=== PATIENT | female | born 1945 | race Caucasian/White ===

== ENCOUNTER → 2019-11-26 09:09 | Outpatient (BNVA) | payer MEDICARE, SELFPAY | PROVIDERS: Visit Provider Internal Medicine | DX: I48.20 Chronic atrial fibrillation, unspecified (principal); Z51.81 Encounter for therapeutic drug level monitoring; Z79.01 Long term (current) use of anticoagulants | CPT/HCPCS: 85610; 99211 ==

== ENCOUNTER → 2020-01-05 09:46 | Outpatient (BNVA) | payer MEDICARE, SELFPAY | PROVIDERS: Visit Provider Internal Medicine | DX: I48.20 Chronic atrial fibrillation, unspecified (principal); Z51.81 Encounter for therapeutic drug level monitoring; Z79.01 Long term (current) use of anticoagulants | CPT/HCPCS: 85610; 99211 ==

== ENCOUNTER → 2020-02-16 09:53 | Outpatient (BNVA) | payer MEDICARE, SELFPAY | PROVIDERS: Visit Provider Internal Medicine | DX: I48.20 Chronic atrial fibrillation, unspecified (principal); Z51.81 Encounter for therapeutic drug level monitoring; Z79.01 Long term (current) use of anticoagulants | CPT/HCPCS: 85610; 99211 ==

== ENCOUNTER → 2020-03-01 10:01 | Outpatient (BNVA) | payer MEDICARE, SELFPAY | PROVIDERS: Visit Provider Internal Medicine | DX: I48.20 Chronic atrial fibrillation, unspecified (principal); Z51.81 Encounter for therapeutic drug level monitoring; Z79.01 Long term (current) use of anticoagulants | CPT/HCPCS: 85610; 99211 ==

== ENCOUNTER → 2020-03-08 09:56 | Outpatient (BNVA) | payer MEDICARE, SELFPAY | PROVIDERS: Visit Provider Internal Medicine | DX: I48.20 Chronic atrial fibrillation, unspecified (principal); Z51.81 Encounter for therapeutic drug level monitoring; Z79.01 Long term (current) use of anticoagulants | CPT/HCPCS: 85610; 99211 ==

== ENCOUNTER → 2020-04-07 10:10 | Outpatient (BNVA) | payer MEDICARE, SELFPAY | PROVIDERS: PCP Internal Medicine; Visit Provider Internal Medicine | DX: I48.20 Chronic atrial fibrillation, unspecified (principal); Z51.81 Encounter for therapeutic drug level monitoring; Z79.01 Long term (current) use of anticoagulants | CPT/HCPCS: 85610; 99211 ==

== ENCOUNTER → 2020-05-05 10:11 | Outpatient (BNVA) | payer MEDICARE, SELFPAY | PROVIDERS: PCP Internal Medicine; Visit Provider Internal Medicine | DX: I48.20 Chronic atrial fibrillation, unspecified (principal); Z51.81 Encounter for therapeutic drug level monitoring; Z79.01 Long term (current) use of anticoagulants | CPT/HCPCS: 85610; 99211 ==

== ENCOUNTER → 2020-05-17 08:49 | Outpatient (BNVA) | payer MEDICARE, SELFPAY | PROVIDERS: PCP Internal Medicine; Visit Provider Internal Medicine | DX: I48.20 Chronic atrial fibrillation, unspecified (principal); Z79.01 Long term (current) use of anticoagulants; Z51.81 Encounter for therapeutic drug level monitoring | CPT/HCPCS: 85610; 99211 ==

== ENCOUNTER → 2020-06-14 09:00 | Outpatient (BNVA) | payer MEDICARE, SELFPAY | PROVIDERS: PCP Internal Medicine; Visit Provider Internal Medicine | DX: I48.20 Chronic atrial fibrillation, unspecified (principal); Z51.81 Encounter for therapeutic drug level monitoring; Z79.01 Long term (current) use of anticoagulants | CPT/HCPCS: 85610; 99211 ==

== ENCOUNTER 2020-07-02 08:30 | Outpatient (REF) | payer MEDICARE, SELFPAY ==
[2020-07-02 10:06] LABS: MANUAL DIFF FLAG NO
[2020-07-02 10:15] LABS: Basophils Percent Auto 0.4 % (0-2); Eosinophils Absolute Auto 0.1 X10*3/uL (0.0-0.4); Eosinophils Percent Auto 1.1 % (0-4); Hematocrit 41.6 % (37-47); Hemoglobin 13.5 g/dl (12.0-16.0); Imm Gran Abs Auto 0.02 X10*3/uL (0.00-0.03); Imm Gran Pct Auto 0.3 % (0.0-0.4); Lymphocytes Absolute Auto 1.6 X10*3/uL (1.2-4.9); Lymphocytes Percent Auto 23.3 % (20-40); Mean Corpuscular HGB Conc 32.5 g/dl (31.0-35.0); Mean Corpuscular Hemoglobin 31.8 pg (27.0-33.0); Mean Corpuscular Volume 98.1 fL (80-98); Mean Platelet Volume 11.2 fL (9.4-12.3); Monocytes Absolute Auto 0.5 X10*3/uL (0.1-1.2); Monocytes Percent Auto 7.6 % (2-11); Neutrophils Absolute Auto 4.7 X10*3/uL (2.0-8.3); Neutrophils Percent Auto 67.3 % (45-73); Platelet Count 266 X10*3/uL (160-400); Red Blood Count 4.24 X10*6/uL (4.20-5.50); Red Cell Distribution Width 12.3 % (11.0-16.0)
[2020-07-02 10:53] LABS: B Type Natriuretic Peptide 260 pg/mL (<100)
[2020-07-02 11:03] LABS: Alanine Aminotransferase 22 U/L (0-31); Albumin Level 4.3 g/dL (3.5-5.0); Alkaline Phosphatase 85 U/L (39-117); Anion Gap 11 (12-20); Aspartate Amino Transferase 23 U/L (5-31); Bilirubin Total 0.5 mg/dL (0.0-1.0); Blood Urea Nitrogen 33 mg/dL (9-16); Calcium 9.8 mg/dL (8.4-10.2); Carbon Dioxide 29 mmol/L (22-29); Chloride 107 mmol/L (96-108); Cholesterol 158 mg/dL; Estimated Glomerular Filt Rate > 60; Glucose Random 86 mg/dL (60-115); HDL Cholesterol 64 mg/dL; LDL Cholesterol Calculated 82 mg/dl; Potassium 4.8 mmol/L (3.3-5.1); Sodium 142 mmol/L (135-145); Total Protein 6.7 g/dL (6.5-8.0); Triglycerides 63 mg/dL
[2020-07-02 11:11] LABS: Free T4 (Free Thyroxine) 0.96 ng/dL (0.71-1.85); Thyroid Stimulating Hormone 1.91 uIU/mL (0.32-4.0)
[2020-07-02 11:29] LABS: Vitamin B12 374 pg/mL (200-900)
== END 2020-07-02 08:31 | disposition home or self-care (01) ==
LOC: HO.LAB 08:30
PROVIDERS: Absent Provider Internal Medicine; PCP Internal Medicine; Visit Provider Internal Medicine
DX: I48.20 Chronic atrial fibrillation, unspecified (principal); E78.00 Pure hypercholesterolemia, unspecified; Z51.81 Encounter for therapeutic drug level monitoring; Z79.01 Long term (current) use of anticoagulants
CPT/HCPCS: 36415; 80053; 80061; 82306; 82607; 82746; 83880; 84439; 84443; 85025; 85610; 99211

== ENCOUNTER → 2020-07-06 12:50 | Outpatient (BNVA) | payer MEDICARE, SELFPAY | PROVIDERS: PCP Internal Medicine; Referring Provider Internal Medicine; Visit Provider Internal Medicine Cardiovascular Disease | DX: I48.0 Paroxysmal atrial fibrillation (principal); I10 Essential (primary) hypertension; R79.89 Other specified abnormal findings of blood chemistry | CPT/HCPCS: 93005; 99202 ==

== ENCOUNTER → 2020-07-08 08:11 | Outpatient (REF) | payer MEDICARE, SELFPAY ==
--- NOTE | 2020-07-08 08:14 | CA_ITS ---
Transthoracic Echocardiogram Patient (Last, First, Middle): Sivan Luis, Gender: Female Date of : 1945 Age: 75 Procedure Date: 07/08/2020 Procedure Type: Transthoracic Echocardiogram Location: OP Height: 167.64 cm Weight: 71.67 kg BSA: 1.81 m2 Heart Rate: bpm BP: 118 / 58 mmHg Manager Merchandise: SARITHA/JOSEPH Referring MD: Sandeep Cid MD Symptoms: I48.0 - Paroxysmal atrial fibrillation Study Quality: Good ECG Rhythm: Sinus Conclusions: - The left ventricular systolic function is normal. The visually estimated ejection fraction is between 60-65%. - Evidence suggests grade II (moderate) diastolic dysfunction. - There is mild mitral valve regurgitation. - There is mild tricuspid valve regurgitation. Findings Left Ventricle Normal left ventricular cavity size. There is normal left ventricular wall thickness. The left ventricular systolic function is normal. The visually estimated ejection fraction is between 60-65%. There is no evidence of regional wall motion abnormalities. E/E prime ratio is between 8 and 15 consistent with indeterminate filling pressures. Evidence suggests grade II (moderate) diastolic dysfunction. Right Ventricle Normal right ventricular cavity size and systolic function. Atria The left atrium is mildly dilated. The right atrium is normal in size. Aortic Valve The aortic valve was not well visualized. There is no aortic valve stenosis. There is no aortic valve regurgitation. Mitral Valve The mitral valve appears normal. There is mild mitral valve regurgitation. There is no mitral valve stenosis. Pulmonic Valve The pulmonic valve was not well visualized. Tricuspid Valve Normal tricuspid valve structure. There is mild tricuspid valve regurgitation. The pulmonary artery systolic pressure is normal. Great Vessels The aortic annulus, sinuses of valsalva, and asc aorta are normal in size. Venous The inferior vena cava is normal in size and collapses greater than 50% with inspiration. Pericardium/Pleural There is no evidence of pericardial effusion. Prior Study Comparison No prior study available for comparison. Measurements 2D Linear Measurements IVSd: 0.93 0.6-0.9/0.6-1.0 cm LVIDd: 4.60 3.9-5.3/4.2-5.9 cm LVIDd Index: 2.54 2.4-3.2/2.2-3.1 cm/m2 LVIDs: 2.96 2.0-3.6 cm LVPWd: 0.96 0.7-1.1 cm Ao Root: 3.10 2.1-3.5 cm LA Diam: 3.70 2.7-3.8/3.0-4.0 cm LAIDs Index: 2.04 1.5-2.3 cm/m2 LV Mass: 182.93 67-162/88-224 g LV Mass Index: 101.07 43-95/49-115 g/m2 LVOT Diam: 2.00 3.0+(-)1.3 cm 2D Systolic Function EF 4C: 57.40 >55% EF 2C: 61.80 >55% EF BiP: 56.00 >55% Mitral Valve MV Pk E: 1.11 MV PK A: 0.59 MV Decel Time: 272.00 E/A: 1.90 E'Medial: 7.94 E/E' Med: 14.00 PHT: 80.00 MVA PHT: 2.75 Decel [place]: 4.09 Aortic Valve AoV Pk Stanislav: 1.26 AoV Mn Stanislav: 0.94 AoV VTI: 0.28 AoV Pk Grad: 6.00 Aov Mn Grad: 4.00 CORBY Cont.VTI: 2.65 LVOT LVOT Pk Stanislav: 0.87 LVOT Mn Stanislav: 0.59 LVOT VTI: 0.23 LVOT Pk Grad: 3.00 LVOT Mn Grad: 2.00 LVOT Diam: 2.00 LVOT Area: 3.14 Diastolic Function MV Pk E: 1.11 MV Pk A: 0.59 E/A: 1.90 E'Medial: 7.94 E/E' Med: 14.00 Tricuspid Valve TR Pk Stanislav: 2.61 TR Pk Grad: 27.00 RA Press: 3.00 RVSP: 30.00 Great Vessels Aorta Ao Root-2D: 3.10 2.0-3.7 cm Ao Asc: 3.20 2.1-3.4 cm Ao Arch: 2.90 Updated in Other Vendor System with Status of Final Zachary Garcia MD electronically signed on 07/09/2020 3:54:11 PM with status of Final
== END ==
LOC: HO.CARD 08:11
PROVIDERS: Visit Provider Internal Medicine Cardiovascular Disease
DX: I48.0 Paroxysmal atrial fibrillation (principal)
CPT/HCPCS: 93306

== ENCOUNTER → 2020-07-09 08:26 | Outpatient (BNVA) | payer MEDICARE, SELFPAY | PROVIDERS: PCP Internal Medicine; Visit Provider Internal Medicine | DX: I48.20 Chronic atrial fibrillation, unspecified (principal); Z51.81 Encounter for therapeutic drug level monitoring; Z79.01 Long term (current) use of anticoagulants | CPT/HCPCS: 85610; 99211 ==

== ENCOUNTER → 2020-07-22 10:57 | Outpatient (REF) | payer MEDICARE, SELFPAY ==
--- NOTE | 2020-07-22 10:24 | HM_ITS ---
TEST PERFORMED: Cardiac event monitoring. ENROLLMENT: 07/22/2020-08/03/2020-12 days. INDICATION: Atrioventricular block. FINDINGS: Study shows baseline rhythm and sinus bradycardia at 54/min. Overall heart rates ranged from 54 to 165 beats per minute. The patient also had evidence of atrial flutter versus fibrillation at different times ranging in rate from 105 to 165 beats per minute. During these time, there was patient's symptom of palpitations, racing, fluttering. CONCLUSION: Study shows sinus bradycardia as well as atrial flutter/fibrillation at different times. Zachary Garcia MD HS/MODL / [id number]
--- NOTE | 2020-07-22 10:59 | CA_ITS ---
Acquisition Time: 2020-07-22 11:13:12 Total Exercise Time: 00:06:43 Test Indications: Abnormal ECG Medications: ASA FLECAINIDE ATORVASTATIN METOPROLOL WARFARIN EZITIMIBE Protocol: DON Max HR: 108 BPM 73% of Pred: 147 BPM Max BP: 154/078 mmHG Max Work Load: 8.1 METS Exercise stress test with exercise 6 min 43 sec of Don protocol, without anginal symptoms, with normotensive response to exercise with 2:1 heart block at peak exercise lasting 30 seconds then resuming SR, with nondiagnostic EKGs for ischemia due to suboptimal heart rate. Echo images obtained at rest and immediately post peak exercise. Definity contrast used. Test and EKG tracings reviewed [facility] Dr Cid. Referred By: Sandeep Cid Overread By: AMADOU JAMIL
== END ==
LOC: HO.CARD 10:57
PROVIDERS: Visit Provider Internal Medicine Cardiovascular Disease
DX: I48.0 Paroxysmal atrial fibrillation (principal); Z79.82 Long term (current) use of aspirin; Z79.01 Long term (current) use of anticoagulants; Z79.899 Other long term (current) drug therapy
CPT/HCPCS: 93270; 93350; Q9957

== ENCOUNTER → 2020-07-26 09:03 | Outpatient (BNVA) | payer MEDICARE, SELFPAY | PROVIDERS: PCP Internal Medicine; Visit Provider Internal Medicine Cardiovascular Disease | DX: I44.1 Atrioventricular block, second degree (principal); I48.0 Paroxysmal atrial fibrillation; R79.89 Other specified abnormal findings of blood chemistry | CPT/HCPCS: 93005; 99212 ==

== ENCOUNTER 2020-07-27 11:15 | Day surgery (SDC) | payer MEDICARE, SELFPAY ==
[2020-07-27] VITALS (8 sets, daily range): BP systolic 113–170; BP diastolic 56–80; PULSE 60–75; RESP 14–18; TEMP 36.1–37.2; O2SAT 95–99; BMI 25.6; BMI 25.0
--- NOTE | ~2020-07-27 | FL_ITS ---
EXAMINATION: XR FLUOROSCOPY WITH IMAGES CLINICAL INFORMATION: Dual-chamber pacemaker. COMPARISON: None. TECHNIQUE: Fluoroscopy performed by Dr. Susan García. Fluoroscopy time: 9.6 minus minutes DAP: 1.65 mGycm2 Images: 2 FINDINGS: There are pacemaker electrodes visualized in right ventricle and solitary pacer in the right atrium. FL/FL guidance in OR IMPRESSION: Fluoroscopy was provided to Dr. García for pacemaker insertion.
--- NOTE | ~2020-07-27 | XR_ITS ---
EXAMINATION: XR CHEST CLINICAL INFORMATION: New permanent pacemaker COMPARISON: None TECHNIQUE: Frontal view of the chest was obtained. FINDINGS: A left chest wall pacemaker is present with one lead in the right atrium and the other relatively high in the right ventricle. The heart and pulmonary vessels appear normal. No infiltrates, effusions, pneumothorax or lung masses are seen. XR/XR chest 1V IMPRESSION: New pacemaker described above. No acute intrathoracic disease.
--- NOTE | ~2020-07-27 | XR_ITS ---
EXAMINATION: XR CHEST CLINICAL INFORMATION: Follow-up pulmonary pacemaker COMPARISON: None TECHNIQUE: Frontal view of the chest was obtained. FINDINGS: The lungs are well-expanded and clear. The heart size and pulmonary vascularity is normal. There are pacer electrodes in right atrium and right ventricle with no gross bony abnormality seen. XR/XR chest 1V IMPRESSION: Unremarkable chest exam. No change from 07/27/2020.
--- NOTE | 2020-07-27 11:53 | HO.ANESPROP2 ---
[facility] Active Problems Active Problems: All Active Problems (Updated 07/22/20 @ 12:44 by Aixa Stovall, HAIR SPINNING MACHINE OPERATOR-C) Second degree atrioventricular block (Acute) Elevated brain natriuretic peptide (BNP) level (Acute) Paroxysmal atrial fibrillation (Acute) Impacted cerumen of both ears (Acute) Hypercholesterolemia (Acute) Hypertension (Acute) Current use of anticoagulant therapy (Acute) Past Medical History Medical History Hypercholesterolemia Hypertension Paroxysmal atrial fibrillation Surgical History Surgical History Eye globe prosthesis Social History Social History Alcohol intake: never Patient Tobacco Use Status: Never used Tobacco Use of substances other than those prescribed or required for medical reasons: No Are you DNR?: No Advance Directives: No Advance Directives Information Provided: No Advance Directives on File: No Meds Allergies Allergy/AdvReac Type Severity Reaction Status Date / Time No Known Allergies Allergy Verified 07/09/20 08:31 Exam Exam Date and Time: July 27, 2020 1153 Height,Weight and Vital Signs: Height 5 ft 6 in Weight 70.307 kg Airway Mallampati Class: II TM Dist: >3cm Neck ROM: Full Assessment and Plan Assessment Anesthesia Assessment: Anesthesia Plan Discussed and Chart Reviewed Final Anesthetic Review NPO: Yes ASA Class: III Final Preanesthetic Review: No Changes in Pt Med Stat, Meds/Allgs Chart Reviewed, Consent Obtained/Reviewed and Anes Risks/Benef Reviewed Patient Risk: Intermediate Procedure Risk: Low Assessment/Block/Sedation in SS: Assess/Block/Sedation- Anesthetic Plan Anesthetic Plan: MAC: Disposition: Standard PACU
--- NOTE | 2020-07-27 12:37 | P.HPCC_ITS ---
History of Present Illness Date of Service: 07/27/20 Chief Complaint: Multiple episodes near-syncope 75-year-old female with many weeks of exertional fatigability shortness of breath and multiple episodes even when sitting and lying of near syncope Longstanding history of paroxysmal atrial fibrillation on flecainide and metoprolol which was subsequently stopped and while on the treadmill manifested high-grade 2-1 av block but heart rate 30 and with significant symptomatic bradycardia No evidence of ischemia and echo anatomy normal in including bowel structures Review of Systems Review of Systems: Yes all other systems are reviewed and are negative [facility] Past Medical History Medical History Hypercholesterolemia Hypertension Paroxysmal atrial fibrillation Surgical History Surgical History Eye globe prosthesis Social History Social History Alcohol intake: never Patient Tobacco Use Status: Never used Tobacco Use of substances other than those prescribed or required for medical reasons: No Are you DNR?: No Advance Directives: No Advance Directives Information Provided: No Advance Directives on File: No Meds Allergies Allergy/AdvReac Type Severity Reaction Status Date / Time No Known Allergies Allergy Verified 07/09/20 08:31 Active Medications: Current Medications Generic Name Dose Route Start Last Admin Trade Name Freq PRN Reason Stop Dose Admin Acetaminophen 650 mg 07/27/20 12:27 Acetaminophen 325 Mg Tablet PO ONCE PRN Pain, Mild (Pain Scale 1-3) Lactated Ringer's 500 mls @ 20 mls/hr 07/27/20 12:45 Lr IVCONT .Q24H SWAPNA Ondansetron HCl 4 mg 07/27/20 12:27 Ondansetron Hcl 4 Mg/2 Ml Vial IVPUSH ONCE PRN Nausea and Vomiting Oxycodone HCl 5 mg 07/27/20 12:27 Oxycodone Hcl Immed Release 5 Mg Tablet PO ONCE PRN Pain, Severe (Pain Scale 7-10) Physical Exam Vital Signs: Vital Signs: Last Vital Signs Temp 98.9 F 07/27/20 11:51 Pulse 65 07/27/20 11:51 Resp 16 07/27/20 11:51 BP 170/60 H 07/27/20 11:51 Pulse Ox 98 07/27/20 11:51 Body Mass Index 25.0 Awake alert oriented and nonfocal neurologic Kathrin No neck vein distension and good bilateral carotid upstrokes and no murmurs no gallops Chest clear no adventitious sounds Abdomen benign no again a megaly no bruits good bowel sounds Peripherally no edema no acrocyanosis no livedo good peripheral pulses EKG with minor diffuse nonspecific ST-T changes Assessment and Plan (1) Second degree atrioventricular block: Status: Acute (2) Elevated brain natriuretic peptide (BNP) level: Status: Acute (3) Paroxysmal atrial fibrillation: Status: Acute (4) Hypercholesterolemia: Status: Acute (5) Hypertension: Qualifiers: Hypertension type: essential hypertension Qualified Code(s): I10 - Essential (primary) hypertension Status: Acute (6) Current use of anticoagulant therapy: Status: Acute (7) Symptomatic bradycardia: Status: Acute Plan is to proceed with permanent dual-chamber pacing currently while in normal sinus rhythm and subsequent to that anti rhythmic medicine can be restarted and anticoagulation can also be restored
[2020-07-27] MEDS: Lactated Ringers 500 ML 20 ML IVCONT (12:40)
--- NOTE | 2020-07-27 13:50 | PC.NURSE ---
Patient arrived to [facility] with right eye prosthesis. Per MD Dickerson, okay to keep in during procedure.
--- NOTE | 2020-07-27 13:51 | PC.NURSE ---
Labs ordered in preop by Dr. García. Per him, okay to draw labs after procedure in PACU. PACU notified of this.
--- NOTE | 2020-07-27 16:16 | P.OP_ITS ---
Operative Note Operative Note Date of Service: 07/27/20 Narrative: Procedure was insertion of dual-chamber permanent pacemaker from [employer] Indication was symptomatic bradycardia with multiple near-syncope due to high- grade second-degree AV block and sinus node dysfunction and paroxysmal atrial fibrillation After sterile preparation and draping and under fluoroscopic guidance we 1st did a subclavian venogram with 15 cc of Vis[place] highlighting subclavian venous system without complication and then made careful incision and dissection securing all bleeders down to the level of the prepectoral fascia and partially creating the pocket along that plane and then gained separate entry under fluoroscopic guidance x2 into the subclavian venous system passing retrograde with Seldinger technique 2 J-tip guidewires to the right atrium and then 2 6 Frisian introducers and then 1st passing an active fixation right ventricular lead to the midportion of the right ventricular septum and this was corroborated in the CZECH view on fluoroscopy with excellent injury current final sensing was 3.6 mV and with capture a 0.6 volts at 0.5 milliseconds with resistant 636 Ohms and at 10 volts no diaphragmatic capture so that lead was sewn in tethered to the pectoral muscle in the floor of the pocket I then passed an active fixation right atrial lead to the right atrial appendage with the screw was deployed excellent injury current sensing 2.3 mV with resistance 423 Ohms capture at 0.3 volts and at 10 volts no diaphragmatic capture so that lead was sewn in tethered to the pectoral muscle in the floor of the pocket I then carefully dissected along the plane of the prepectoral fascia completing the pocket placed both leads in the generator screwed in place both well tethered with no change in impedance and lead and generator placed in the pocket and the wound was closed in 3 layers all with dissolvable suture covered with sterile dressing and the patient removed from the OR table awake and intact currently in normal sinus rhythm and excellent sensing of both atrium and ventricle No complications and awaiting final portable chest x-ray
[2020-07-27 16:18] LABS: MANUAL DIFF FLAG NO
[2020-07-27 16:33] LABS: Basophils Percent Auto 0.4 % (0-2); Eosinophils Absolute Auto 0.1 X10*3/uL (0.0-0.4); Eosinophils Percent Auto 1.1 % (0-4); Hematocrit 35.9 % (37-47); Hemoglobin 11.6 g/dl (12.0-16.0); Imm Gran Abs Auto 0.02 X10*3/uL (0.00-0.03); Imm Gran Pct Auto 0.4 % (0.0-0.4); Lymphocytes Absolute Auto 1.5 X10*3/uL (1.2-4.9); Lymphocytes Percent Auto 28.7 % (20-40); Mean Corpuscular HGB Conc 32.3 g/dl (31.0-35.0); Mean Corpuscular Hemoglobin 31.6 pg (27.0-33.0); Mean Corpuscular Volume 97.8 fL (80-98); Mean Platelet Volume 11.2 fL (9.4-12.3); Monocytes Absolute Auto 0.4 X10*3/uL (0.1-1.2); Monocytes Percent Auto 7.2 % (2-11); Neutrophils Absolute Auto 3.3 X10*3/uL (2.0-8.3); Neutrophils Percent Auto 62.2 % (45-73); Platelet Count 203 X10*3/uL (160-400); Red Blood Count 3.67 X10*6/uL (4.20-5.50); Red Cell Distribution Width 11.9 % (11.0-16.0); White Blood Count 5.3 X10*3/uL (4.8-10.8)
[2020-07-27 16:40] LABS: INTERNATIONAL NORM RATIO 1.1 (0.9-1.1); Prothrombin Time 13.4 SEC (10.8-13.0)
[2020-07-27 16:43] LABS: Partial Thromboplastin Time 33.8 SEC (24.1-38.0)
[2020-07-27 16:50] LABS: Anion Gap 11 (12-20); Blood Urea Nitrogen 22 mg/dL (9-16); Calcium 9.4 mg/dL (8.4-10.2); Carbon Dioxide 28 mmol/L (22-29); Chloride 108 mmol/L (96-108); Creatinine Clr Calc Pharmacy 57.9; Estimated Glomerular Filt Rate > 60; Glucose Random 79 mg/dL (60-115); Potassium 4.4 mmol/L (3.3-5.1); Sodium 143 mmol/L (135-145)
[2020-07-27] MEDS: Acetaminophen 325 MG TABLET 650 MG PO (22:05)
[2020-07-28 03:50] VITALS: BP 134/66; PULSE 59; RESP 18; TEMP 36.2; O2SAT 97
[2020-07-28 07:37] VITALS: BP 154/72; PULSE 63; RESP 19; TEMP 36.8; O2SAT 94
[2020-07-28] MEDS: Apixaban 2.5 MG TABLET PO (07:45)
--- NOTE | 2020-07-28 08:47 | P.PNCC_ITS ---
Subjective Subjective Date of Service: 07/28/20 Interval History: Patient asymptomatic with stable rhythm overnight and waited a chest x-ray which showed again no evidence of pneumothorax no effusion and the lead placement on the septum of the right ventricle and in the right atrial appendage was absolutely stable and device interrogation shows similar impedance and capture and sensing thresholds compared to yesterday and therefore it appears that the patient is ready for discharge Critical Care Time (minutes): 25 Physical Exam Vital Signs: Vital Signs: Last Vital Signs Temp 98.2 F 07/28/20 07:37 Pulse 63 07/28/20 07:37 Resp 19 07/28/20 07:37 BP 154/72 H 07/28/20 07:37 Pulse Ox 94 07/28/20 07:37 Body Mass Index 25.6 Const: Other: Normal sinus rhythm with [place] QRS conduction and appropriate sensing by the device with no neck vein distension and good bilateral carotid upstrokes no rubs no bruits and chest is clear Objective Data Labs CBC & Chem 7: 07/27/20 16:09 07/27/20 16:09 Labs: Laboratory Results - last 24 hr 07/27/20 07/27/20 07/27/20 16:09 16:09 16:09 WBC 5.3 RBC 3.67 L Hgb 11.6 L Hct 35.9 L MCV 97.8 MCH 31.6 MCHC 32.3 RDW 11.9 Plt Count 203 MPV 11.2 Immature Gran % (Auto) 0.4 Neut % (Auto) 62.2 Lymph % (Auto) 28.7 [place] % (Auto) 7.2 Eos % (Auto) 1.1 Baso % (Auto) 0.4 Lymph # (Auto) 1.5 [place] # (Auto) 0.4 Eos # (Auto) 0.1 Baso # (Auto) 0.0 Abs Immat Gran (auto) 0.02 Absolute Neuts (auto) 3.3 Absolute Nucleated RBC 0.000 Nucleated RBC % (auto) 0.0 PT 13.4 H INR 1.1 APTT 33.8 Sodium 143 Potassium 4.4 Chloride 108 Carbon Dioxide 28 Anion Gap 11 L BUN 22 H Creatinine 0.81 Estim Creat Clear Calc 57.9 Estimated GFR > 60 Random Glucose 79 Calcium 9.4 Progress Note: A&P Assessment and plan (1) Symptomatic bradycardia: Status: Acute (2) Second degree atrioventricular block: Status: Acute (3) Elevated brain natriuretic peptide (BNP) level: Status: Acute (4) Paroxysmal atrial fibrillation: Status: Acute (5) Impacted cerumen of both ears: Status: Acute (6) Hypercholesterolemia: Status: Acute (7) Hypertension: Status: Acute (8) Current use of anticoagulant therapy: Status: Acute Assessment and Plan: All told excellent dual-chamber pacer function and ready for discharge and she can resume her normal meds as of this evening including the apixaban
--- NOTE | 2020-07-28 09:01 | MHC.CM.PN ---
pt dcd home no servceis pt is independent family will transport home
--- NOTE | 2020-07-28 11:16 | HO.POSTANES ---
Post Anesthesia Evaluation Post Anesthesia Evaluation Vital Signs: Vital Signs Temp Pulse Resp BP Pulse Ox 07/28/20 07:37 98.2 F 63 19 154/72 H 94 07/28/20 03:50 97.2 F 59 18 134/66 97 07/27/20 23:42 98.0 F 60 18 151/72 H 97 Anesthesia: Monitored Mental Status: Awake Pain Control: Satisfactory Nausea/Vomiting: None Hydration: Adequate Anesthesia-Related Issues: No Anes. Related Issues
--- NOTE | 2020-07-28 11:17 | PM.DS ---
DS: Providers Provider Date of Service: 07/28/20 Primary care physician: Sandeep Cid MD Consults: 07/27/20 19:32 Consult to Hospitalist Stat Consulting Provider: Hospitalist Reason For Exam: s/p PPM by Dr García DS: Diagnosis Discharge Diagnosis (1) Symptomatic bradycardia: Status: Acute (2) Second degree atrioventricular block: Status: Acute (3) Elevated brain natriuretic peptide (BNP) level: Status: Acute (4) Paroxysmal atrial fibrillation: Status: Acute (5) Impacted cerumen of both ears: Status: Acute (6) Hypercholesterolemia: Status: Acute (7) Hypertension: Status: Acute (8) Current use of anticoagulant therapy: Status: Acute DS: Medications Discharge Medications Home Medications: Previous Rx's Medication Instructions Recorded ezetimibe 10 mg tablet 10 mg PO DAILY #90 tab 04/23/20 atorvastatin 80 mg tablet 80 mg PO DAILY #90 tab 05/12/20 apixaban 5 mg tablet 5 mg PO BID 90 Days #180 tab 07/06/20 DS: Summary Hospital Course Hospital Course: History of presenting illness. Chief Complaint: Multiple episodes near-syncope 75-year-old female with many weeks of exertional fatigability shortness of breath and multiple episodes even when sitting and lying of near syncope Longstanding history of paroxysmal atrial fibrillation on flecainide and metoprolol which was subsequently stopped and while on the treadmill manifested high-grade 2-1 av block but heart rate 30 and with significant symptomatic bradycardia No evidence of ischemia and echo anatomy normal in including bowel structures pmhx Hypercholesterolemia Hypertension Paroxysmal atrial fibrillation Hospital course 75-year-old female patient with past medical history of paroxysmal atrial fibrillation on anticoagulation presented to [place] [facility] with multiple episodes of near syncope, exertional fatigability and was found to have high-grade 2-1 AV block patient underwent dual-chamber pacemaker placement by Dr. wang, currently she is in normal sinus rhythm, chest x-ray showed no evidence of pneumothorax, no effusion and the lead placement on the septum of the right ventricle in the and in the right atrial appendage is absolutely stable, pacemaker has been interrogated and functioning fine, patient evaluated by Dr. Wang this a.m. he recommended to discharge patient home on baseline medication, and Eliquis can be resume from tonight, recommend to have outpatient follow-up with Dr. Bledsoe in 1 week. Time Spent with Patient Time attestation: Total time spent providing and/or coordinating discharge services: Discharge coordination time: Greater than 30 minutes Quality: Stroke Does the patient have a stroke diagnosis?: No Physical Exam Vital Signs: Vital Signs: Last Vital Signs Temp 98.2 F 07/28/20 07:37 Pulse 63 07/28/20 07:37 Resp 19 07/28/20 07:37 BP 154/72 H 07/28/20 07:37 Pulse Ox 94 07/28/20 07:37 Body Mass Index 25.6 General awake alert no distress Neck no JVD Lungs clear to auscultation CVS regular rate rhythm GI soft, nontender, bowel sounds are audible Extremities no edema DS: Data Data Completed and Pending Labs on day of discharge: Laboratory Results - last 24 hr 07/27/20 07/27/20 07/27/20 16:09 16:09 16:09 WBC 5.3 RBC 3.67 L Hgb 11.6 L Hct 35.9 L MCV 97.8 MCH 31.6 MCHC 32.3 RDW 11.9 Plt Count 203 MPV 11.2 Immature Gran % (Auto) 0.4 Neut % (Auto) 62.2 Lymph % (Auto) 28.7 [place] % (Auto) 7.2 Eos % (Auto) 1.1 Baso % (Auto) 0.4 Lymph # (Auto) 1.5 [place] # (Auto) 0.4 Eos # (Auto) 0.1 Baso # (Auto) 0.0 Abs Immat Gran (auto) 0.02 Absolute Neuts (auto) 3.3 Absolute Nucleated RBC 0.000 Nucleated RBC % (auto) 0.0 PT 13.4 H INR 1.1 APTT 33.8 Sodium 143 Potassium 4.4 Chloride 108 Carbon Dioxide 28 Anion Gap 11 L BUN 22 H Creatinine 0.81 Estim Creat Clear Calc 57.9 Estimated GFR > 60 Random Glucose 79 Calcium 9.4 Discharge Plan Discharge Patient Disposition: Home, Self-Care Referrals: Sandeep Cid MD [Primary Care Provider] - 1 Week Discharge Medications: No Action ezetimibe 10 mg tablet 10 mg PO DAILY Qty: 90 RF: 1 Eliquis 5 mg tablet 5 mg PO BID 90 Days Qty: 180 RF: 1 atorvastatin 80 mg tablet 80 mg PO DAILY Qty: 90 RF: 3 Discharge Orders: Discharge Order (Routine); Ordered 07/28/20 Ordered By: Christiano Dominguez Discharge Date/Time: 07/28/20 10:06
== END 2020-07-28 10:06 | disposition home or self-care (01) ==
LOC: HO.SSS 16:20 → HO.IMC 16:21
PROVIDERS: PCP Internal Medicine Cardiovascular Disease; Visit Provider Internal Medicine Cardiovascular Disease
PROC: (CPT 33208; principal; 2020-07-27 13:00)
DX: I44.1 Atrioventricular block, second degree (principal); I48.0 Paroxysmal atrial fibrillation; R55 Syncope and collapse; R00.1 Bradycardia, unspecified; E78.00 Pure hypercholesterolemia, unspecified; I10 Essential (primary) hypertension; Z79.01 Long term (current) use of anticoagulants; Z79.899 Other long term (current) drug therapy
CPT/HCPCS: 33208; 36415; 71045; 80048; 85025; 85610; 85730; C1785; C1892; C1898; J0690; J2250; J3010; Q9967

== ENCOUNTER → 2020-08-05 09:59 | Outpatient (BNVA) | payer MEDICARE, SELFPAY | PROVIDERS: PCP Internal Medicine; Referring Provider Internal Medicine; Visit Provider Internal Medicine Cardiovascular Disease | DX: I48.91 Unspecified atrial fibrillation (principal) | CPT/HCPCS: 93005 ==

== ENCOUNTER → 2020-08-10 13:51 | Outpatient (BNVA) | payer MEDICARE, SELFPAY | PROVIDERS: PCP Internal Medicine; Visit Provider Nurse Practitioner Family | DX: Z51.89 Encounter for other specified aftercare (principal); I48.0 Paroxysmal atrial fibrillation; I44.1 Atrioventricular block, second degree; R79.89 Other specified abnormal findings of blood chemistry; Z95.0 Presence of cardiac pacemaker | CPT/HCPCS: 99212 ==

== ENCOUNTER → 2020-08-23 09:21 | Outpatient (REF) | payer MEDICARE, SELFPAY ==
--- NOTE | ~2020-08-23 | NM_ITS ---
Myocardial perfusion study Indication: AV block to evaluate for myocardial ischemia Technique: The patient was brought in for a Lexiscan perfusion study on 08/23/2020. Patient performed low-level exercise and was injected 0.4 mg of Lexiscan intravenously. Within a minute of injection, 25 mCi of sestamibi was given intravenously. Images were obtained using the SPECT gamma camera interlaced with the gating device. Images were obtained in supine position. Resting perfusion study was performed on 08/24/2020. Patient was administered 25 mCi of sestamibi intravenously at rest. Images were then obtained in supine position. Images obtained with and without CT attenuation. Total DLP 128 mGy-cm. Images were processed with the software and compared side to side in short axis, horizontal long axis and vertical long axis views. Findings: The stress perfusion study showed nonattenuated images show moderately reduced uptake in the distal lateral, apical wall of the LV myocardium. Remainder of the LV myocardium is normally perfused. Attenuation corrected images show normal uptake of radiotracer in all segments of LV myocardium.. The gated study shows normal LV systolic function with calculated LVEF of 70%. LV cavity is normal in size. The gated study shows normal systolic wall thickening and contraction of segments. Resting study shows no change in perfusion pattern compared to stress perfusion study. Gating at rest reveals normal systolic wall motion with ejection fraction at 65%. The findings are consistent with no clear reversible defect suggestive of ischemia. Likely normal myocardial perfusion. NM/NM joana perf SPECT rest & str Impression: 1. Myocardial perfusion imaging study shows likely normal myocardial perfusion 2. Gated LVEF is 70% 3. Transient ischemic dilatation not present EKG is nondiagnostic for ischemia
--- NOTE | 2020-08-23 09:23 | CA_ITS ---
Acquisition Time: 2020-08-23 09:35:45 Total Exercise Time: 00:02:00 Test Indications: POST PACEMAKER Medications: SEE CHART Protocol: LEXISCAN Max HR: 088 BPM 59% of Pred: 147 BPM Max BP: 126/072 mmHG Max Work Load: 1.0 METS Pharmacological stress test using Lexiscan while sitting. EKG with paced rhythm, isolated PVC's. Non-diagnostic for ischemia. Nuclear images to follow. Normotensive response to test. Test reviewed with Dr. Cid. Referred By: Aixa Stovall Overread By: Jennifer Art NP
== END ==
LOC: HO.CARD 09:21
PROVIDERS: Visit Provider Nurse Practitioner Family
DX: I44.1 Atrioventricular block, second degree (principal); I48.0 Paroxysmal atrial fibrillation; R79.89 Other specified abnormal findings of blood chemistry
CPT/HCPCS: 78452; 93017; A9500; J0280; J2785

== ENCOUNTER → 2020-09-06 08:54 | Outpatient (BNVA) | payer MEDICARE, SELFPAY | PROVIDERS: PCP Internal Medicine; Referring Provider Internal Medicine; Visit Provider Internal Medicine Cardiovascular Disease | DX: I48.0 Paroxysmal atrial fibrillation (principal); Z95.0 Presence of cardiac pacemaker; Z79.899 Other long term (current) drug therapy | CPT/HCPCS: 93005; 99212 ==

== ENCOUNTER 2020-11-08 11:48 | Outpatient (REF) | payer MEDICARE, SELFPAY ==
[2020-11-08 12:44] LABS: MANUAL DIFF FLAG NO
[2020-11-08 12:57] LABS: Basophils Percent Auto 0.6 % (0-2); Eosinophils Absolute Auto 0.1 X10*3/uL (0.0-0.4); Eosinophils Percent Auto 1.1 % (0-4); Hematocrit 39.5 % (37-47); Hemoglobin 12.9 g/dl (12.0-16.0); Imm Gran Abs Auto 0.03 X10*3/uL (0.00-0.03); Imm Gran Pct Auto 0.4 % (0.0-0.4); Immature Retic Fraction 11.4 % (3.0-15.9); Lymphocytes Absolute Auto 1.9 X10*3/uL (1.2-4.9); Lymphocytes Percent Auto 26.8 % (20-40); Mean Corpuscular HGB Conc 32.7 g/dl (31.0-35.0); Mean Corpuscular Hemoglobin 31.7 pg (27.0-33.0); Mean Corpuscular Volume 97.1 fL (80-98); Monocytes Absolute Auto 0.5 X10*3/uL (0.1-1.2); Monocytes Percent Auto 7.5 % (2-11); Neutrophils Absolute Auto 4.6 X10*3/uL (2.0-8.3); Neutrophils Percent Auto 63.6 % (45-73); Platelet Count 250 X10*3/uL (160-400); Red Blood Count 4.07 X10*6/uL (4.20-5.50); Red Cell Distribution Width 12.5 % (11.0-16.0); Retic HGB Equivalent 35.1 pg (30.0-35.0); Reticulocyte Percent 2.1 % (0.5-1.8); Reticulocytes Absolute 0.085 X10*6/uL (0.026-0.095); White Blood Count 7.2 X10*3/uL (4.8-10.8)
[2020-11-08 13:07] LABS: Iron 96 mcg/dL (30-160); Percent Iron Saturation 29 % (15-50); Total Iron Binding Capacity 335 mcg/dL (228-428); Unsaturated Iron Binding 239 ug/dL
[2020-11-08 13:11] LABS: B Type Natriuretic Peptide 314 pg/mL (<100)
[2020-11-08 13:29] LABS: Ferritin 92 ng/mL (10-250)
[2020-11-08 13:44] LABS: Folate 16.9 ng/mL (> or = 4.0); Vitamin B12 463 pg/mL (200-900)
== END 2020-11-08 11:49 | disposition home or self-care (01) ==
LOC: HO.LAB 11:48
PROVIDERS: PCP Internal Medicine; Visit Provider Internal Medicine
DX: F41.9 Anxiety disorder, unspecified (principal); I48.0 Paroxysmal atrial fibrillation
CPT/HCPCS: 36415; 82607; 82728; 82746; 83540; 83880; 85025; 85045

== ENCOUNTER → 2020-11-29 10:19 | Outpatient (BNVA) | payer MEDICARE, SELFPAY | PROVIDERS: PCP Internal Medicine; Referring Provider Internal Medicine; Visit Provider Internal Medicine Cardiovascular Disease | DX: I48.0 Paroxysmal atrial fibrillation (principal); R53.83 Other fatigue; I10 Essential (primary) hypertension; E78.00 Pure hypercholesterolemia, unspecified; Z45.018 Encounter for adjustment and management of other part of cardiac pacemaker; Z88.8 Allergy status to other drugs, medicaments and biological substances; Z79.01 Long term (current) use of anticoagulants; Z79.899 Other long term (current) drug therapy | CPT/HCPCS: 93005; 99212 ==

== ENCOUNTER → 2021-04-27 09:39 | Outpatient (BNVA) | payer MEDICARE, SELFPAY | PROVIDERS: PCP Internal Medicine; Referring Provider Internal Medicine; Visit Provider Internal Medicine Cardiovascular Disease | DX: Z45.018 Encounter for adjustment and management of other part of cardiac pacemaker (principal); I48.0 Paroxysmal atrial fibrillation; R79.89 Other specified abnormal findings of blood chemistry | CPT/HCPCS: 93005; 99212 ==

== ENCOUNTER 2021-06-29 09:38 | Outpatient (REF) | payer MEDICARE, SELFPAY ==
--- NOTE | ~2021-06-29 | MM_ITS ---
EXAMINATION: BONE DENSITOMETRY CLINICAL INDICATION: Osteopenia. COMPARISON: None (current study represents initial baseline exam). TECHNIQUE: Using a ITYZ DXA System (software version: 13.1) manufactured by [employer], dual-energy x-ray absorptiometry was performed of the lumbar spine and left hip. The images are of good technical quality. Summary results are attached. FINDINGS: AP SPINE L1-L4: BMD 0.798 g/cm2, Z-score -1.7, T-score -3.2, osteoporosis. LEFT FEMUR, NECK: BMD 0.638 g/cm2, Z-score -1.2, T-score -2.9, osteoporosis. LEFT FEMUR, TOTAL: BMD 0.668 g/cm2, Z-score -1.2, T-score -2.7, osteoporosis. IDENTIFIED RISK FACTORS: Menopause. HISTORY OF FRACTURE: None listed. MEDICATIONS: None listed. MM/XR DEXA axial skeleton IMPRESSION: 1. DIAGNOSIS: Osteoporosis based on the lowest T-score value of -3.2 in the lumbar spine applying World Health Organization criteria. 2. 10-YEAR FRACTURE RISK PREDICTION, FRAX: According to the guidelines, FRAX calculation should only be performed on patients in the osteopenia bone density category. Therefore, FRAX was not performed on this patient. 3. Treatment Recommendations: NOF guidelines recommend consideration for treatment in postmenopausal women and men age 50 and older presenting with the following: -A hip or vertebral (clinical or morphometric) fracture. -T-score less than or equal to -2.5 at the femoral neck or spine after appropriate evaluation to exclude secondary causes. -Low bone mass at the hip or spine and a 10-year fracture probability by FRAX of greater than or equal to 3% for hip fracture or greater than or equal to 20% for major osteoporotic fracture based on the [place] adapted WHO algorithm. 4. Other Recommendations: All treatment decisions require clinical judgment and consideration of individual patient factors, including patient preferences, comorbidities, previous drug use, risk factors not captured in the FRAX model (e.g. frailty, falls, vitamin D deficiency, increased bone turnover, interval significant decline in bone density) and possible under or overestimation of fracture risk by FRAX. Additional medical evaluation for secondary cause of low bone mineral density may be appropriate. FUTURE SCAN RECOMMENDATION: People with diagnosed cases of osteoporosis or at high risk for fracture should have regular bone mineral density tests. For patients eligible for Medicare, routine testing is allowed once every 2 years. The testing frequency can be increased to one year for patients who have rapidly progressing disease, those who are receiving or discontinuing medical therapy to restore bone mass, or have additional risk factors.
== END 2021-06-29 09:39 | disposition home or self-care (01) ==
LOC: HO.MAMMO 09:38
PROVIDERS: PCP Internal Medicine; Visit Provider Internal Medicine
DX: Z13.820 Encounter for screening for osteoporosis (principal); M85.89 Other specified disorders of bone density and structure, multiple sites; Z78.0 Asymptomatic menopausal state
CPT/HCPCS: 77080

== ENCOUNTER 2021-07-05 08:29 | Outpatient (REF) | payer MEDICARE, SELFPAY ==
[2021-07-05 08:58] LABS: MANUAL DIFF FLAG NO
[2021-07-05 09:50] LABS: Basophils Percent Auto 0.5 % (0-2); Eosinophils Absolute Auto 0.1 X10*3/uL (0.0-0.4); Eosinophils Percent Auto 1.3 % (0-4); Hematocrit 40.7 % (37.0-47.0); Hemoglobin 13.3 g/dl (12.0-16.0); Imm Gran Abs Auto 0.01 X10*3/uL (0.00-0.03); Imm Gran Pct Auto 0.2 % (0.0-0.4); Lymphocytes Absolute Auto 1.9 X10*3/uL (1.2-4.9); Lymphocytes Percent Auto 31.4 % (20-40); Mean Corpuscular HGB Conc 32.7 g/dl (31.0-35.0); Mean Corpuscular Hemoglobin 31.9 pg (27.0-33.0); Mean Corpuscular Volume 97.6 fL (80.0-98.0); Monocytes Absolute Auto 0.5 X10*3/uL (0.1-1.2); Monocytes Percent Auto 7.6 % (2-11); Neutrophils Absolute Auto 3.5 x10*3/uL (2.0-8.3); Platelet Count 232 X10*3/uL (160-400); Red Blood Count 4.17 X10*6/uL (4.20-5.50); Red Cell Distribution Width 11.9 % (11.0-16.0)
[2021-07-05 10:24] LABS: Alanine Aminotransferase 19 U/L (0-31); Albumin Level 4.2 g/dL (3.5-5.0); Alkaline Phosphatase 82 U/L (39-117); Anion Gap 12 (12-20); Aspartate Amino Transferase 20 U/L (5-31); Bilirubin Total 0.4 mg/dL (0.0-1.0); Blood Urea Nitrogen 29 mg/dL (9-16); Calcium 9.6 mg/dL (8.4-10.2); Carbon Dioxide 30 mmol/L (22-29); Chloride 105 mmol/L (96-108); Cholesterol 165 mg/dL; Estimated Glomerular Filt Rate > 60; Glucose Random 79 mg/dL (60-115); HDL Cholesterol 65 mg/dL; LDL Cholesterol Calculated 90 mg/dl; Potassium 4.6 mmol/L (3.3-5.1); Sodium 142 mmol/L (135-145); Total Protein 6.8 g/dL (6.5-8.0); Triglycerides 54 mg/dL
[2021-07-05 10:49] LABS: Free T4 (Free Thyroxine) 0.95 ng/dL (0.71-1.85); Thyroid Stimulating Hormone 2.17 uIU/mL (0.32-4.0); Vitamin D 25-OH Total 28.4 ng/mL (>30)
[2021-07-05 11:21] LABS: Folate 16.9 ng/mL (> or = 4.0); Vitamin B12 308 pg/mL (200-900)
== END 2021-07-05 08:30 | disposition home or self-care (01) ==
LOC: HO.LAB 08:29
PROVIDERS: PCP Internal Medicine; Visit Provider Internal Medicine
DX: I48.0 Paroxysmal atrial fibrillation (principal); I10 Essential (primary) hypertension; E78.00 Pure hypercholesterolemia, unspecified; M81.0 Age-related osteoporosis without current pathological fracture
CPT/HCPCS: 36415; 80053; 80061; 82306; 82607; 82746; 84439; 84443; 85025

== ENCOUNTER → 2021-10-13 07:23 | Outpatient (REF) | payer MEDICARE, SELFPAY ==
--- NOTE | 2021-10-13 07:30 | CA_ITS ---
Transthoracic Echocardiogram Patient (Last, First, Middle): Sivan Luis, Gender: Female Date of : 1945 Age: 76 Procedure Date: 10/13/2021 Procedure Type: Transthoracic Echocardiogram Location: OP Height: 167.64 cm Weight: 71.67 kg BSA: 1.81 m2 Heart Rate: 60 bpm BP: 120 / 80 mmHg Harp Maker: LOE Matthews MD: Sandeep Cid MD Airline Ticket Agent: Sandeep Cid MD Symptoms: I48.0 - Paroxysmal atrial fibrillation Study Quality: Good ECG Rhythm: Sinus Conclusions: - 1. Normal LV systolic function with pseudonormal filling pattern 2. Normal RV systolic pressure 3. No gross pericardial effusion 4. Within normal limits cardiac valvular Doppler Findings Left Ventricle Normal left ventricular size, thickness, and systolic function. The visually estimated ejection fraction is between 55-60%. Spectral Doppler is indicative of a pseudonormal filling pattern. E/E prime ratio is between 8 and 15 consistent with indeterminate filling pressures. Right Ventricle Normal right ventricular cavity size and systolic function. Atria Both atria are normal in size. There is no evidence of interatrial shunt. Aortic Valve Normal aortic valve structure and function. There is no aortic valve stenosis. There is no aortic valve regurgitation. Mitral Valve There is mild anterior and posterior mitral leaflet thickening. There is trace mitral valve regurgitation. There is no mitral valve stenosis. Pulmonic Valve The pulmonic valve was not well visualized. Tricuspid Valve Likely normal tricuspid valve structure and function. There is trace tricuspid valve regurgitation. The right ventricular systolic pressure is normal. The right ventricular systolic pressure is 14 mmHg. Normal right atrial pressure. Great Vessels All visible segments of the aorta are normal in size. The pulmonary artery was not well visualized. Venous The inferior vena cava is normal in size and collapses greater than 50% with inspiration. Pericardium/Pleural There is no evidence of pericardial effusion. Prior Study Comparison No significant change compared to prior study dated: 07/08/2020. Measurements 2D Linear Measurements IVSd: 0.87 0.6-0.9/0.6-1.0 cm LVIDd: 4.33 3.9-5.3/4.2-5.9 cm LVIDd Index: 2.39 2.4-3.2/2.2-3.1 cm/m2 LVIDs: 3.13 2.0-3.6 cm LVPWd: 0.91 0.7-1.1 cm LA Diam: 3.40 2.7-3.8/3.0-4.0 cm LAIDs Index: 1.88 1.5-2.3 cm/m2 LV Mass: 152.79 67-162/88-224 g LV Mass Index: 84.42 43-95/49-115 g/m2 LVOT Diam: 1.80 3.0+(-)1.3 cm 2D Systolic Function EF 4C: 57.40 >55% EF 2C: 53.40 >55% EF BiP: 55.90 >55% Mitral Valve MV Pk E: 0.81 MV PK A: 0.67 MV Decel Time: 195.00 E/A: 1.20 E'Lateral: 6.75 E'Medial: 5.96 E/E' Med: 13.50 E/E' Lat: 11.90 PHT: 57.00 MVA PHT: 3.86 Decel Mingo: 4.13 Aortic Valve AoV Pk Stanislav: 1.04 AoV Mn Stanislav: 0.81 AoV VTI: 0.27 AoV Pk Grad: 4.00 Aov Mn Grad: 3.00 CORBY Cont.VTI: 1.49 LVOT LVOT Pk Stanislav: 0.67 LVOT Mn Stanislav: 0.49 LVOT VTI: 0.16 LVOT Pk Grad: 2.00 LVOT Mn Grad: 1.00 LVOT Diam: 1.80 LVOT Area: 2.54 Diastolic Function MV Pk E: 0.81 MV Pk A: 0.67 E/A: 1.20 E'Medial: 5.96 E/E' Med: 13.50 E' Laterial: 6.75 E/E' Lat: 11.90 Right Ventricle TAPSE (mm): 15.70 TVS' Stanislav: 7.01 Tricuspid Valve TR Pk Stanislav: 1.69 TR Pk Grad: 11.00 RA Press: 3.00 RVSP: 14.00 Great Vessels Aorta Sinus of Valsalva: 3.00 2.0-3.5 cm Ao Asc: 2.90 2.1-3.4 cm Pulmonary Valve PV Pk Stanislav: 0.65 Peak PV Grad: 2.00 Updated in Other Vendor System with Status of Final Sandeep Cid MD electronically signed on 10/14/2021 5:12:37 PM with status of Final
[2021-10-13 08:30] LABS: Anion Gap 14 (12-20); Blood Urea Nitrogen 23 mg/dL (9-16); Calcium 9.5 mg/dL (8.4-10.2); Carbon Dioxide 28 mmol/L (22-29); Chloride 104 mmol/L (96-108); Estimated Glomerular Filt Rate 56; Glucose Random 90 mg/dL (60-115); Potassium 4.5 mmol/L (3.3-5.1); Sodium 141 mmol/L (135-145)
[2021-10-13 08:43] LABS: B Type Natriuretic Peptide 270 pg/mL (<100)
== END ==
LOC: HO.CARD 07:23
PROVIDERS: PCP Internal Medicine; Visit Provider Internal Medicine Cardiovascular Disease
DX: R79.89 Other specified abnormal findings of blood chemistry (principal); I48.0 Paroxysmal atrial fibrillation
CPT/HCPCS: 36415; 80048; 83880; 93306

== ENCOUNTER → 2021-12-15 09:41 | Outpatient (BNVA) | payer MEDICARE, SELFPAY | PROVIDERS: PCP Internal Medicine; Referring Provider Internal Medicine; Visit Provider Internal Medicine Cardiovascular Disease | DX: I48.0 Paroxysmal atrial fibrillation (principal); I10 Essential (primary) hypertension; R79.89 Other specified abnormal findings of blood chemistry; Z95.0 Presence of cardiac pacemaker | CPT/HCPCS: 93005; 93280; 99212 ==

== ENCOUNTER 2022-01-03 07:43 | Outpatient (REF) | payer MEDICARE, SELFPAY ==
[2022-01-03 07:51] LABS: MANUAL DIFF FLAG NO
[2022-01-03 08:09] LABS: Basophils Percent Auto 0.6 % (0-2); Eosinophils Absolute Auto 0.2 X10*3/uL (0.0-0.4); Eosinophils Percent Auto 2.2 % (0-4); Hematocrit 41.7 % (37.0-47.0); Hemoglobin 13.5 g/dl (12.0-16.0); Imm Gran Abs Auto 0.03 X10*3/uL (0.00-0.03); Imm Gran Pct Auto 0.4 % (0.0-0.4); Lymphocytes Absolute Auto 2.1 X10*3/uL (1.2-4.9); Lymphocytes Percent Auto 29.3 % (20-40); Mean Corpuscular HGB Conc 32.4 g/dl (31.0-35.0); Mean Corpuscular Hemoglobin 31.8 pg (27.0-33.0); Mean Corpuscular Volume 98.1 fL (80.0-98.0); Mean Platelet Volume 10.5 fL (9.4-12.3); Monocytes Absolute Auto 0.6 X10*3/uL (0.1-1.2); Monocytes Percent Auto 7.9 % (2-11); Neutrophils Absolute Auto 4.3 x10*3/uL (2.0-8.3); Neutrophils Percent Auto 59.6 % (45-73); Platelet Count 246 X10*3/uL (160-400); Red Blood Count 4.25 X10*6/uL (4.20-5.50); Red Cell Distribution Width 12.8 % (11.0-16.0); White Blood Count 7.2 X10*3/uL (4.8-10.8)
[2022-01-03 08:59] LABS: Alanine Aminotransferase 25 U/L (0-31); Albumin Level 4.3 g/dL (3.5-5.0); Alkaline Phosphatase 87 U/L (39-117); Anion Gap 12 (12-20); Aspartate Amino Transferase 25 U/L (5-31); Bilirubin Total 0.4 mg/dL (0.0-1.0); Blood Urea Nitrogen 30 mg/dL (9-16); Calcium 9.9 mg/dL (8.4-10.2); Carbon Dioxide 30 mmol/L (22-29); Chloride 105 mmol/L (96-108); Estimated Glomerular Filt Rate > 60; Free T4 (Free Thyroxine) 1.01 ng/dL (0.71-1.85); Glucose Random 94 mg/dL (60-115); Potassium 4.6 mmol/L (3.3-5.1); Sodium 142 mmol/L (135-145); Thyroid Stimulating Hormone 3.82 uIU/mL (0.32-4.0); Total Protein 6.9 g/dL (6.5-8.0)
[2022-01-03 09:28] LABS: B Type Natriuretic Peptide 67 pg/mL (<100)
== END 2022-01-03 07:44 | disposition home or self-care (01) ==
LOC: HO.LAB 07:43
PROVIDERS: PCP Internal Medicine; Visit Provider Internal Medicine
DX: I48.0 Paroxysmal atrial fibrillation (principal)
CPT/HCPCS: 36415; 80053; 83880; 84439; 84443; 85025

== ENCOUNTER → 2022-07-20 09:59 | Outpatient (BNVA) | payer MEDICARE, SELFPAY | PROVIDERS: PCP Internal Medicine; Referring Provider Internal Medicine; Visit Provider Internal Medicine Cardiovascular Disease | DX: Z45.018 Encounter for adjustment and management of other part of cardiac pacemaker (principal); I48.0 Paroxysmal atrial fibrillation; R79.89 Other specified abnormal findings of blood chemistry | CPT/HCPCS: 93005; 93280; 99212 ==

== ENCOUNTER 2022-07-29 08:33 | Outpatient (REF) | payer MEDICARE, SELFPAY ==
[2022-07-29 09:01] LABS: MANUAL DIFF FLAG NO
[2022-07-29 09:39] LABS: Basophils Percent Auto 0.6 % (0-2); Eosinophils Absolute Auto 0.1 X10*3/uL (0.0-0.4); Eosinophils Percent Auto 1.3 % (0-4); Hematocrit 38.6 % (37.0-47.0); Hemoglobin 12.7 g/dl (12.0-16.0); Imm Gran Abs Auto 0.01 X10*3/uL (0.00-0.03); Imm Gran Pct Auto 0.2 % (0.0-0.4); Lymphocytes Absolute Auto 1.6 X10*3/uL (1.2-4.9); Lymphocytes Percent Auto 30.2 % (20-40); Mean Corpuscular HGB Conc 32.9 g/dl (31.0-35.0); Mean Corpuscular Hemoglobin 32.1 pg (27.0-33.0); Mean Corpuscular Volume 97.5 fL (80.0-98.0); Mean Platelet Volume 10.8 fL (9.4-12.3); Monocytes Absolute Auto 0.4 X10*3/uL (0.1-1.2); Monocytes Percent Auto 7.6 % (2-11); Neutrophils Absolute Auto 3.2 x10*3/uL (2.0-8.3); Neutrophils Percent Auto 60.1 % (45-73); Platelet Count 213 X10*3/uL (160-400); Red Blood Count 3.96 X10*6/uL (4.20-5.50); Red Cell Distribution Width 12.2 % (11.0-16.0); White Blood Count 5.4 X10*3/uL (4.8-10.8)
[2022-07-29 10:21] LABS: Alanine Aminotransferase 17 U/L (0-31); Alkaline Phosphatase 83 U/L (39-117); Anion Gap 12 (12-20); Aspartate Amino Transferase 20 U/L (5-31); Bilirubin Total 0.5 mg/dL (0.0-1.0); Blood Urea Nitrogen 27 mg/dL (9-16); Calcium 9.7 mg/dL (8.4-10.2); Carbon Dioxide 27 mmol/L (22-29); Chloride 107 mmol/L (96-108); Cholesterol 150 mg/dL; Estimated Glomerular Filt Rate > 60; Glucose Random 84 mg/dL (60-115); HDL Cholesterol 60 mg/dL; LDL Cholesterol Calculated 81 mg/dl; Potassium 4.1 mmol/L (3.3-5.1); Sodium 142 mmol/L (135-145); Total Protein 6.6 g/dL (6.5-8.0); Triglycerides 45 mg/dL
[2022-07-29 10:40] LABS: Free T4 (Free Thyroxine) 0.93 ng/dL (0.71-1.85); Thyroid Stimulating Hormone 2.88 uIU/mL (0.32-4.0); Vitamin D 25-OH Total 37.9 ng/mL (>30)
[2022-07-29 10:52] LABS: Folate 14.6 ng/mL (> or = 4.0); Vitamin B12 468 pg/mL (200-900)
== END 2022-07-29 08:34 | disposition home or self-care (01) ==
LOC: HO.LAB 08:33
PROVIDERS: Absent Provider Internal Medicine Cardiovascular Disease; PCP Internal Medicine; Visit Provider Internal Medicine
DX: I10 Essential (primary) hypertension (principal); E78.00 Pure hypercholesterolemia, unspecified; I48.0 Paroxysmal atrial fibrillation; M81.0 Age-related osteoporosis without current pathological fracture
CPT/HCPCS: 36415; 80053; 80061; 82306; 82607; 82746; 84439; 84443; 85025

== ENCOUNTER 2022-09-20 13:08 | Outpatient (AMB) | payer MEDICARE, SELFPAY ==
[2022-09-20 13:11] VITALS: BP 124/70; PULSE 66; O2SAT 97; BMI 26.1
--- NOTE | 2022-09-20 13:11 | MHC.PC.OV ---
Vital Signs 09/20/22 13:11 Height 5 ft 6 in Weight 162 lb BMI 26.1 BP 124/70 Blood Pressure Location Lt brachial Position Sitting Pulse 66 Pulse Source Pulse Oximeter Pulse Oximetry (%) 97 Oxygen Delivery Method Room Air Intake Visit Reasons: DM-Rescheduled from 07/13 Allergies amiodarone Adverse Reaction (Intermediate, Verified 09/20/22 13:11) visual problem dronedarone [From Multaq] Adverse Reaction (Intermediate, Verified 09/20/22 13:11) not effective Medication List - Last Reconciled 09/20/22 by Ger Granda MD apixaban (Eliquis) 5 mg PO BID 90 days atorvastatin 80 mg PO DAILY ezetimibe 10 mg PO DAILY flecainide 150 mg PO Q12H lorazepam 0.5 mg PO BEDTIME PRN metoprolol tartrate 25 mg PO BID Tobacco use date assessed: 09/20/22 Fall risk assessment: No Falls in past year Last assessed Fall Risk: 09/20/22 Dental Screening Dental Screen Date: 09/20/22 Did you have a dental visit in the last 12 months?: Yes Did you have a dental problem in the last 6 months where you did not have access to dental care?: No Was dental information given to patient?: Patient has dentist HPI DM-Rescheduled from 07/13 HPI Details 77-year-old female with a history of atrial fibrillation second-degree AV block with pacemaker hypertension hypercholesterolemia and generalized anxiety disorder. Last seen in December 2021 blood work requested impaired patient follows up with cardiology last seen in 07/20/2022, pacemaker has been checked and continued control with flecainide. [facility] Medical History Cardiac pacemaker in situ Current use of anticoagulant therapy Hypercholesterolemia Hypertension Impacted cerumen of both ears Osteopenia Osteopenia of multiple sites Paroxysmal atrial fibrillation Surgical History Eye globe prosthesis Social History Household Members: Spouse Housing: House Do you presently have visiting nurse or other home services: No Alcohol intake: never Patient Tobacco Use Status: Never used Tobacco e-Cigarette/Vaping Use: Never Used Second Hand Smoke Exposure: No service: No Current occupational status: retired Cognitive needs: No Hearing needs: No Vision needs: Yes Questionnaire PHQ-9 Over the last 2 weeks, how often have you been bothered by any of the following problems? 1. Little interest or pleasure in doing things: not at all 2. Feeling down, depressed, or hopeless: not at all 3. Trouble falling or staying asleep, or sleeping too much: not at all 4. Feeling tired or having little energy: not at all 5. Poor appetite or overeating: not at all 6. Feeling bad about yourself - or that you are a failure or have let yourself or your family down: not at all 7. Trouble concentrating on things, such as reading the newspaper or watching television: not at all 8. Moving or speaking so slowly that other people could have noticed. Or the opposite - being so fidgety or restless that you have been moving around a lot more than usual: not at all 9. Thoughts that you would be better off or of hurting yourself in some way: not at all Total score: 0 Depression Screening Interpretation: Negative Source: Developed by Drs. Ced York, Moriah Nugent, Kamlesh Bauer and colleagues, with an educational angie from [employer]. Thrive Questionnaire Date Thrive assessed: 09/20/22 I am a: Patient What is your living situation today?: I have a steady place to live Within the past 12 months, did the food you bought not last and you didn't have the money to get more?: Never true Within the past 12 months, did you worry whether your food would run out before you got money to buy more?: Never true Do you have trouble paying for medicines?: No Do you have trouble getting transportation to medical appointments?: No Do you have trouble paying your heating and electricity bill?: No Do you have trouble taking care of your child, family member or friend?: No Do you have trouble with day-to-day activities such as bathing, preparing meals, shopping, managing finances, etc.?: No Are you currently unemployed and looking for a job?: No Are you interested in more education?: No Currently or been in a relationship where the following occur: no concerns reported AUDIT C Alcohol Use Questionnaire (AUDIT-C) 1. How often do you have a drink containing alcohol?: Never Total Score: 0 GREG-7 AMB Questionnaire GREG-7 Date GREG - 7 assessed: 09/20/22 Feeling nervous, anxious, or on edge: 0 = Not at all Not being able to stop or control worryin = Not at all Worrying too much about different things: 0 = Not at all Trouble relaxin = Not at all Being so restless that it is hard to sit still: 0 = Not at all Becoming easily annoyed or irritable: 0 = Not at all Feeling afraid as if something awful might happen: 0 = Not at all Total GREG-7 score (0-4 normal; 5-9 mild; 10-14 moderate; 15-21 severe): 0 Source: Developed by Drs. Ced York, Moriah Nugent, Kamlesh Bauer and colleagues, with an educational angie from [employer]. Physical exam (Primary Care) Vital Signs: Last Vital Signs Pulse 53 09/20/22 13:11 BP 124/70 09/20/22 13:11 Pulse Ox 97 09/20/22 13:11 Oxygen Delivery Method Room Air 09/20/22 13:11 BMI result Body Mass Index 26.1 Tobacco/Smoking Status: Tobacco use Status Tobacco use date assessed 09/20/22 09/20/22 13:16 Patient Tobacco Use Status Never used Tobacco 09/20/22 13:16 e-Cigarette/Vaping Use Never Used 09/20/22 13:16 PHQ-9: PHQ-9 Score PHQ-9: Total score 0 09/20/22 13:16 Depression Screening Interpretation: Negative Thrive Assessment: Date of Thrive Assessment Date Thrive assessed 09/20/22 09/20/22 13:16 Currently or been in a relationship where the following occur: no concerns reported Const General: alert; No acute distress Eyes Conjunctivae: conjunctivae normal Resp Auscultation: clear to auscultation bilaterally Cardio Rate: regular rate Rhythm: regular rhythm GI Inspection: Yes normal to inspection Extrem General: Yes normal to inspection and No edema Assessment and Plan Assessment & Plan (1) Paroxysmal atrial fibrillation: Code(s): I48.0 - Paroxysmal atrial fibrillation Plan: Continue with anticoagulation and flecainide (2) Second degree atrioventricular block: Code(s): I44.1 - Atrioventricular block, second degree Plan: Pacemaker regularly checked with cardiology (3) Generalized anxiety disorder: Code(s): F41.1 - Generalized anxiety disorder Plan: Continue with medication as needed (4) Hypertension: Code(s): I10 - Essential (primary) hypertension Qualifiers: Hypertension type: essential hypertension Qualified Code(s): I10 - Essential (primary) hypertension Plan: Continue with blood pressure medication. Decrease salt intake and exercise continue with metoprolol 50 mg twice a day (5) Hypercholesterolemia: Code(s): E78.00 - Pure hypercholesterolemia, unspecified Plan: Avoid fried foods, chicken skin, eggs, butter margarine, pastries and meat. Be it pork or beef they have a lot of cholesterol LDL goal of less than 100 patient is on atorvastatin 80 mg once a day Zetia 10 mg once a day Orders: Orders Vitamin B12 and Folate 6 Months E78.00 - Pure hypercholesterolemia, unspecified B Type Natriuretic Peptide 6 Months E78.00 - Pure hypercholesterolemia, unspecified Comprehensive Met. Panel 6 Months E78.00 - Pure hypercholesterolemia, unspecified Lipid Panel 6 Months E78.00 - Pure hypercholesterolemia, unspecified Free T4 (Free Thyroxine) 6 Months E78.00 - Pure hypercholesterolemia, unspecified Thyroid Stimulating Hormone 6 Months E78.00 - Pure hypercholesterolemia, unspecified Complete Blood Count Auto Diff 6 Months E78.00 - Pure hypercholesterolemia, unspecified Medications: Changed From metoprolol tartrate 50 mg (2 x 25 mg) PO BID 180 tabs 1RF I10 - Essential (primary) hypertension, I48.0 - Paroxysmal atrial fibrillation To metoprolol tartrate 25 mg PO BID 180 tabs 1RF I10 - Essential (primary) hypertension, I48.0 - Paroxysmal atrial fibrillation Coding Level of Care Code Est Pt Level 4 (38567) Diagnoses Paroxysmal atrial fibrillation I48.0 Second degree atrioventricular block I44.1 Generalized anxiety disorder F41.1 Hypertension I10 Hypertension type: essential hypertension Hypercholesterolemia E78.00
== END 2022-09-20 13:41 | disposition home or self-care (01) ==
LOC: HO.HMGH 13:08
PROVIDERS: PCP Internal Medicine; Visit Provider Internal Medicine
DX: I48.0 Paroxysmal atrial fibrillation (principal); I44.1 Atrioventricular block, second degree; F41.1 Generalized anxiety disorder; I10 Essential (primary) hypertension; E78.00 Pure hypercholesterolemia, unspecified
CPT/HCPCS: 99214

== ENCOUNTER → 2022-11-08 23:59 | Outpatient (BNV) | payer MEDICARE, SELFPAY ==
--- NOTE | 2022-11-09 09:29 | MHC.OFFVIS ---
Intake Intake Visit Reasons: Remote Device Check- [facility] Allergies amiodarone Adverse Reaction (Intermediate, Verified 09/20/22 13:11) visual problem dronedarone [From Multaq] Adverse Reaction (Intermediate, Verified 09/20/22 13:11) not effective [facility] Medical History Cardiac pacemaker in situ Current use of anticoagulant therapy Hypercholesterolemia Hypertension Impacted cerumen of both ears Osteopenia Osteopenia of multiple sites Paroxysmal atrial fibrillation Surgical History Eye globe prosthesis Social History Household Members: Spouse Housing: House Do you presently have visiting nurse or other home services: No Alcohol intake: never Patient Tobacco Use Status: Never used Tobacco e-Cigarette/Vaping Use: Never Used Second Hand Smoke Exposure: No service: No Current occupational status: retired Cognitive needs: No Hearing needs: No Vision needs: Yes Office Procedures Cardiac Device Check Cardiac Device Check Details: Remote pacemaker report generated 11/08/2022. Pacemaker function is adequate. [place] of atrial fibrillation is improved significantly [id number] Cardiac Device Interrogation, pacemaker Procedure code (CPT) selection complete Coding Level of Care Code Procedure Only CPT Codes Cardiac Device Check - Cardiac Device 12: [id number] Cardiac Device Interrogation, pacemaker ([id number])
== END ==
PROVIDERS: PCP Internal Medicine; Visit Provider Internal Medicine Cardiovascular Disease
DX: I48.0 Paroxysmal atrial fibrillation (principal); Z95.0 Presence of cardiac pacemaker
CPT/HCPCS: 93294

== ENCOUNTER → 2023-02-07 23:59 | Outpatient (BNV) | payer MEDICARE, SELFPAY ==
--- NOTE | 2023-02-13 08:34 | A.OFFVIS_ITS ---
Intake Intake Visit Reasons: Remote Device Check- [facility] Allergies amiodarone Adverse Reaction (Intermediate, Verified 09/20/22 13:11) visual problem dronedarone [From Multaq] Adverse Reaction (Intermediate, Verified 09/20/22 13:11) not effective [facility] Medical History Cardiac pacemaker in situ Current use of anticoagulant therapy Hypercholesterolemia Hypertension Impacted cerumen of both ears Osteopenia Osteopenia of multiple sites Paroxysmal atrial fibrillation Surgical History Eye globe prosthesis Social History Household Members: Spouse Housing: House Do you presently have visiting nurse or other home services: No Alcohol intake: never Patient Tobacco Use Status: Never used Tobacco e-Cigarette/Vaping Use: Never Used Second Hand Smoke Exposure: No service: No Current occupational status: retired Cognitive needs: No Hearing needs: No Vision needs: Yes Office Procedures Cardiac Device Check Cardiac Device Check Details: Remote pacemaker report generated 02/07/2023. Pacemaker function is adequate. Total burden of atrial fibrillation 12% [id number] Cardiac Device Interrogation, pacemaker Procedure code (CPT) selection complete Assessment & Plan Assessment & Plan (1) Cardiac pacemaker in situ: Comment: Dual-chamber [employer] pacemaker placed for transient AV block Code(s): Z95.0 - Presence of cardiac pacemaker Plan: See above Coding Level of Care Code Procedure Only Diagnoses Cardiac pacemaker in situ Z95.0 CPT Codes Cardiac Device Check - Cardiac Device 12: [id number] Cardiac Device Interro gation, pacemaker ([id number])
== END ==
PROVIDERS: PCP Internal Medicine; Visit Provider Internal Medicine Cardiovascular Disease
DX: I48.0 Paroxysmal atrial fibrillation (principal); Z95.0 Presence of cardiac pacemaker
CPT/HCPCS: 93294

== ENCOUNTER 2023-02-22 08:35 | Outpatient (REF) | payer MEDICARE, SELFPAY ==
[2023-02-22 08:57] LABS: MANUAL DIFF FLAG NO
[2023-02-22 09:39] LABS: Basophils Percent Auto 0.6 % (0-2); Eosinophils Absolute Auto 0.1 X10*3/uL (0.0-0.4); Eosinophils Percent Auto 1.9 % (0-4); Hematocrit 41.4 % (37.0-47.0); Hemoglobin 13.6 g/dl (12.0-16.0); Imm Gran Abs Auto 0.02 X10*3/uL (0.00-0.03); Imm Gran Pct Auto 0.3 % (0.0-0.4); Lymphocytes Absolute Auto 1.9 X10*3/uL (1.2-4.9); Lymphocytes Percent Auto 28.5 % (20-40); Mean Corpuscular HGB Conc 32.9 g/dl (31.0-35.0); Mean Corpuscular Hemoglobin 31.5 pg (27.0-33.0); Mean Corpuscular Volume 95.8 fL (80.0-98.0); Mean Platelet Volume 10.4 fL (9.4-12.3); Monocytes Absolute Auto 0.5 X10*3/uL (0.1-1.2); Monocytes Percent Auto 7.3 % (2-11); Neutrophils Absolute Auto 4.1 x10*3/uL (2.0-8.3); Neutrophils Percent Auto 61.4 % (45-73); Platelet Count 291 X10*3/uL (160-400); Red Blood Count 4.32 X10*6/uL (4.20-5.50); White Blood Count 6.7 X10*3/uL (4.8-10.8)
[2023-02-22 10:04] LABS: B Type Natriuretic Peptide 124 pg/mL (<100)
[2023-02-22 10:15] LABS: Alanine Aminotransferase 23 U/L (0-31); Albumin Level 4.2 g/dL (3.5-5.0); Alkaline Phosphatase 88 U/L (39-117); Anion Gap 13 (12-20); Aspartate Amino Transferase 21 U/L (5-31); Bilirubin Total 0.3 mg/dL (0.0-1.0); Blood Urea Nitrogen 25 mg/dL (9-16); Calcium 9.7 mg/dL (8.4-10.2); Carbon Dioxide 30 mmol/L (22-29); Chloride 105 mmol/L (96-108); Cholesterol 156 mg/dL (<200); Estimated Glomerular Filt Rate > 60; Glucose Random 86 mg/dL (60-115); HDL Cholesterol 56 mg/dL (>40); LDL Cholesterol Calculated 85 mg/dL (<100); Potassium 4.2 mmol/L (3.3-5.1); Sodium 144 mmol/L (135-145); Total Protein 7.1 g/dL (6.5-8.0); Triglycerides 78 mg/dL (<150)
[2023-02-22 10:33] LABS: Free T4 (Free Thyroxine) 0.92 ng/dL (0.71-1.85); Thyroid Stimulating Hormone 1.85 uIU/mL (0.32-4.0)
[2023-02-22 10:39] LABS: Folate 13.1 ng/mL (> or = 4.0); Vitamin B12 661 pg/mL (200-900)
== END 2023-02-22 08:36 | disposition home or self-care (01) ==
LOC: HO.LAB 08:35
PROVIDERS: PCP Internal Medicine; Visit Provider Internal Medicine
DX: E78.00 Pure hypercholesterolemia, unspecified (principal)
CPT/HCPCS: 36415; 80053; 80061; 82607; 82746; 83880; 84439; 84443; 85025

== ENCOUNTER 2023-02-27 10:23 | Outpatient (AMB) | payer MEDICARE, SELFPAY ==
--- NOTE | 2023-02-27 10:30 | A.OFFVIS_ITS ---
Intake Vital Signs 02/27/23 10:31 Height 5 ft 6 in Weight 165 lb 5.547 oz BMI 26.7 BP 114/70 Blood Pressure Location Lt brachial Position Sitting Pulse 60 Intake Visit Reasons: 6 mth f/up w/ ekg and pacer ck Intake Note: 6 month follow-up with ekg and [facility] check left arm pain elbow to neck, c/o sob with active, c/o having a cough for a few week also has up coming removal of basal cell removal would need to stop Eliquis 3 days Detective Lieutenant Required: No Allergies amiodarone Adverse Reaction (Intermediate, Verified 09/20/22 13:11) visual problem dronedarone [From Multaq] Adverse Reaction (Intermediate, Verified 09/20/22 13:11) not effective Medication List - Last Reconciled 02/27/23 by Sandeep Cid MD apixaban (Eliquis) 5 mg PO BID 90 days atorvastatin 80 mg PO DAILY ezetimibe 10 mg PO DAILY flecainide 150 mg PO Q12H lorazepam 0.5 mg PO BEDTIME PRN metoprolol tartrate 25 mg PO BID HPI HPI Comments 2 History of Present Illness Details Sivan comes for follow-up. She does not exercise on a regular basis. She says she does get short of breath when she climbs a flight of stairs or walks for longer distance. She also intermittently has some symptoms of palpitation although there is no correlation between palpitations and shortness of breath. She takes all her medications. Overall says she feels a lot better. No orthopnea, PND, leg edema. No exertional chest tightness. No bleeding issues or neurologic events. Takes all her medications regularly. Says suffering from viral syndrome related to flu. [facility] Medical History Osteopenia of multiple sites Osteopenia Cardiac pacemaker in situ Paroxysmal atrial fibrillation Impacted cerumen of both ears Hypercholesterolemia Hypertension Current use of anticoagulant therapy Surgical History Eye globe prosthesis Social History Household Members: Spouse Housing: House Do you presently have visiting nurse or other home services: No Alcohol intake: never Patient Tobacco Use Status: Never used Tobacco e-Cigarette/Vaping Use: Never Used Second Hand Smoke Exposure: No service: No Current occupational status: retired Cognitive needs: No Hearing needs: No Vision needs: Yes Review of Systems Const Denies chills, Denies fatigue, Denies fever(s), Denies frequent falls, Denies weakness, Denies weight gain and Denies weight loss ENT Denies dizziness Card Denies chest pain, Denies leg edema, Denies lightheadedness, Denies palp itations, Denies dyspnea, Denies dyspnea on exertion, Denies orthopnea and Denies other (loss of consciousness) Resp Denies cough, Denies dyspnea and Denies dyspnea on exertion GI Denies hematochezia and Denies change in stool character Musc Denies abnormal gait, Denies muscle weakness, Denies numbness, Denies radiating pain into limb and Denies tingling Neuro Denies abnormal gait, Denies dizziness, Denies frequent falls, Denies numbness, Denies tingling and Denies weakness Endo Denies fatigue and Denies palpitations Physical Exam Vital Signs: Last Vital Signs Pulse 60 02/27/23 10:31 BP 114/70 02/27/23 10:31 BMI result Body Mass Index 26.7 Const General: cooperative, comfortable, no acute distress, alert, awake, anxious and well groomed Nutritional Appearance: average body habitus Orientation/consciousness: patient oriented x3 Limitations: no limitations Neck Neck: Yes trachea midline, Yes supple and Yes no JVD Resp Effort & Inspection: normal respiratory effort Auscultation: clear to auscultation bilaterally Cardio Jugular venous distension: no JVD Palpation: normal PMI Rate: regular rate Rhythm: regular rhythm Heart sounds: S1 normal heart sound present, S2 normal heart sound present, no click, no gallops, no murmurs and no rubs GI Auscultation: normal bowel sounds Skin General skin exam: no rashes or lesions noted Neuro General: patient oriented x3 and no focal motor deficits Extrem General: Yes no clubbing, cyanosis or edema Psych Appearance: grossly normal Office Procedures Cardiac Device Check Cardiac Device Check Details: Dual-chamber [facility] [employer] pacemaker in place. Programmed in DDDR at 60 beats per minute. Atrial pacing 69% of time and ventricular pacing 40% of time. Brief episodes of atrial fibrillation noted with total burden reported 9.3%. Atrial ventricular sensing is adequate. Atrial ventricular capture thresholds are adequate. Pacing lead impedance is stable. Battery life is 6.2 years [id number] Cardiac Device Check, pacemaker dual lead Procedure code (CPT) selection complete EKG Details: EKG shows atrially paced, ventricularly sensed rhythm with incomplete right bundle-branch block with [place] [id number], Complete Assessment & Plan Assessment & Plan (1) Paroxysmal atrial fibrillation: Code(s): I48.0 - Paroxysmal atrial fibrillation Plan: Paroxysmal atrial fibrillation with much improved overall burden of atrial fibrillation on current antiarrhythmic drug therapy with flecainide. She is done very well with much improvement in symptoms. Continue the same. Continue concomitant metoprolol therapy. Continue full oral anticoagulation, currently on Eliquis 5 mg b.i.d.. Semi annual renal function test should be pursued. (2) Cardiac pacemaker in situ: Comment: Dual-chamber [employer] pacemaker placed for transient AV block Code(s): Z95.0 - Presence of cardiac pacemaker Plan: Cardiac pacemaker in-situ for transient AV block. Patient pacing in the ventricle about 40% of the time. Overall doing well from that perspective. Pacemaker is working well. Will follow remotely as well as follow in the clinic in 6 months time. (3) Elevated brain natriuretic peptide (BNP) level: Code(s): R79.89 - Other specified abnormal findings of blood chemistry Plan: Elevated BNP in the past which have improved with overall much improved rhythm control. No signs or symptoms of heart failure. She is encouraged to increase activity level as tolerated. No indication for diuretic therapy. Signs and symptoms of heart failure were discussed. Will follow up in the clinic in 6 months time, sooner p.r.n.. Thank you for allowing me to partake in her care Coding Level of Care Code Est Pt Level 4 (09435) Diagnoses Paroxysmal atrial fibrillation I48.0 Cardiac pacemaker in situ Z95.0 Elevated brain natriuretic peptide (BNP) level R79.89 CPT Codes Cardiac Device Check - Cardiac Device 2: [id number] Cardiac Device Check, pacemaker dual lead ([id number]) EKG - CPT: 54877-[id number], Complete ([id number])
[2023-02-27 10:31] VITALS: BP 114/70; PULSE 60; BMI 26.7
== END 2023-02-27 11:06 | disposition home or self-care (01) ==
PROVIDERS: PCP Internal Medicine; Visit Provider Internal Medicine Cardiovascular Disease
DX: I48.0 Paroxysmal atrial fibrillation (principal); Z95.0 Presence of cardiac pacemaker; R79.89 Other specified abnormal findings of blood chemistry
CPT/HCPCS: 93280; 99214

== ENCOUNTER → 2023-02-27 10:23 | Outpatient (BNVA) | payer MEDICARE, SELFPAY | PROVIDERS: PCP Internal Medicine; Visit Provider Internal Medicine Cardiovascular Disease | DX: I48.0 Paroxysmal atrial fibrillation (principal); R79.89 Other specified abnormal findings of blood chemistry; Z45.018 Encounter for adjustment and management of other part of cardiac pacemaker; Z79.01 Long term (current) use of anticoagulants; Z79.899 Other long term (current) drug therapy | CPT/HCPCS: 93005; 93280; 99212 ==

== ENCOUNTER 2023-03-27 09:35 | Outpatient (AMB) | payer MEDICARE, SELFPAY ==
[2023-03-27 09:36] VITALS: BP 112/68; PULSE 70; O2SAT 98; BMI 27.0
--- NOTE | 2023-03-27 09:36 | A.OFFPC_ITS ---
Vital Signs 03/27/23 09:36 Height 5 ft 6 in Weight 167 lb BMI 27.0 BP 112/68 Blood Pressure Location Lt brachial Position Sitting Pulse 70 Pulse Source Pulse Oximeter Pulse Oximetry (%) 98 Oxygen Delivery Method Room Air Intake Visit Reasons: a fib Research Animal Attendant Required: No Allergies amiodarone Adverse Reaction (Intermediate, Verified 03/27/23 09:36) visual problem dronedarone [From Multaq] Adverse Reaction (Intermediate, Verified 03/27/23 09:36) not effective Tobacco use date assessed: 03/27/23 Fall risk assessment: No Falls in past year Last assessed Fall Risk: 03/27/23 Dental Screening Dental Screen Date: 03/27/23 Did you have a dental visit in the last 12 months?: Yes Did you have a dental problem in the last 6 months where you did not have access to dental care?: No Was dental information given to patient?: Patient has dentist HPI a fib HPI Details 77-year-old overweight female with atria l fibrillation, status post pacemaker with due to second-degree AV block generalized anxiety disorder hypertension hypercholesterolemia coming in for follow-up. Last seen in September 2022. Mammogram is due. Done 2022. Review of the notes February was seen by Cardiology on flecainide on anticoagulation. this am showering felt dizzy denies any chest pains no shortness a breath no bowel bladder symptoms. Patient states drink more water and felt better.. states not sleeping well and not really drinking water a lot. stopped taking lorazepam. patient will have procedure L lateral eye area was told basal cancer. and states has been thinking about this. [facility] Medical History (Updated 03/27/23 @ 10:06 by Ger Granda MD) Osteopenia of multiple sites Osteopenia Cardiac pacemaker in situ Paroxysmal atrial fibrillation Impacted cerumen of both ears Hypercholesterolemia Hypertension Current use of anticoagulant therapy Surgical History Eye globe prosthesis Social History Household Members: Spouse Housing: House Do you presently have visiting nurse or other home services: No Alcohol intake: never Patient Tobacco Use Status: Never used Tobacco e-Cigarette/Vaping Use: Never Used Second Hand Smoke Exposure: No service: No Current occupational status: retired Cognitive needs: No Hearing needs: No Vision needs: Yes Questionnaire PHQ-9 Over the last 2 weeks, how often have you been bothered by any of the following problems? 1. Little interest or pleasure in doing things: not at all 2. Feeling down, depressed, or hopeless: not at all 3. Trouble falling or staying asleep, or sleeping too much: not at all 4. Feeling tired or having little energy: not at all 5. Poor appetite or overeating: not at all 6. Feeling bad about yourself - or that you are a failure or have let yourself or your family down: not at all 7. Trouble concentrating on things, such as reading the newspaper or watching television: not at all 8. Moving or speaking so slowly that other people could have noticed. Or the opposite - being so fidgety or restless that you have been moving around a lot more than usual: not at all 9. Thoughts that you would be better off or of hurting yourself in some way: not at all Total score: 0 Depression Screening Interpretation: Negative Depression Screening Done: Yes Source: Developed by Drs. Ced York, Moriah Nugent, Kamlesh Bauer and colleagues, with an educational angie from [employer]. Thrive Questionnaire Date Thrive assessed: 03/27/23 I am a: Patient What is your living situation today?: I have a steady place to live Within the past 12 months, did the food you bought not last and you didn't have the money to get more?: Never true Within the past 12 months, did you worry whether your food would run out before you got money to buy more?: Never true Do you have trouble paying for medicines?: No Do you have trouble getting transportation to medical appointments?: No Do you have trouble paying your heating and electricity bill?: No Do you have trouble taking care of your child, family member or friend?: No Do you have trouble with day-to-day activities such as bathing, preparing meals, shopping, managing finances, etc.?: No Are you currently unemployed and looking for a job?: No Are you interested in more education?: No Please select the resources that you would like help with: None THRIVE Score: 0 AUDIT C Alcohol Use Questionnaire (AUDIT-C) 1. How often do you have a drink containing alcohol?: Never 3. How often do you have six or more drinks on one occasion?: Never Total Score: 0 GREG-7 AMB Questionnaire GREG-7 Date GREG - 7 assessed: 03/27/23 Source: Developed by Drs. Ced York, Moriah Nugent, Kamlesh Bauer and colleagues, with an educational angie from [employer]. Physical exam (Primary Care) Vital Signs: Last Vital Signs Pulse 70 03/27/23 09:36 BP 112/68 03/27/23 09:36 Pulse Ox 98 03/27/23 09:36 Oxygen Delivery Method Room Air 03/27/23 09:36 BMI result Body Mass Index 27.0 Tobacco/Smoking Status: Tobacco use Status Tobacco use date assessed 03/27/23 03/27/23 09:37 Patient Tobacco Use Status Never used Tobacco 03/27/23 09:37 e-Cigarette/Vaping Use Never Used 03/27/23 09:37 PHQ-9: PHQ-9 Score PHQ-9: Total score 0 03/27/23 09:37 Depression Screening Interpretation: Negative Thrive Assessment: Date of Thrive Assessment Date Thrive assessed 03/27/23 03/27/23 09:37 Const General: alert; No acute distress Eyes Conjunctivae: conjunctivae normal Resp Auscultation: clear to auscultation bilaterally Cardio Rate: regular rate Rhythm: regular rhythm GI Inspection: Yes normal to inspection Extrem General: Yes normal to inspection and No edema Assessment and Plan Assessment & Plan (1) Paroxysmal atrial fibrillation: Code(s): I48.0 - Paroxysmal atrial fibrillation Plan: Continue to follow-up with cardiology on flecainide and Eliquis. Blood work done February 2023 (2) Second degree atrioventricular block: Code(s): I44.1 - Atrioventricular block, second degree Plan: Pacemaker placed and being monitored by Cardiology (3) Hypercholesterolemia: Code(s): E78.00 - Pure hypercholesterolemia, unspecified Plan: Avoid fried foods, chicken skin, eggs, butter margarine, pastries and meat. Be it pork or beef they have a lot of cholesterol LDL goal of less than 130 and triglyceride of less than 150. Patient on atorvastatin 80 mg once a day and Zetia (4) Hypertension: Code(s): I10 - Essential (primary) hypertension Qualifiers: Hypertension type: essential hypertension Qualified Code(s): I10 - Essential (primary) hypertension Plan: Continue with blood pressure medication. Decrease salt intake and exercise on metoprolol tartrate 25 mg twice a day (5) Generalized anxiety disorder: Code(s): F41.1 - Generalized anxiety disorder Plan: Continue with anxiety medication as needed. (6) Impacted cerumen of both ears: Code(s): H61.23 - Impacted cerumen, bilateral Plan: Because of the patient being on anticoagulation would recommend having ear flushing done to clean the ears (7) Dizziness: Code(s): R42 - Dizziness and giddiness Plan: Keep well hydrated and monitor for now . discussed about avoiding sudden changes in temperature and position. Coding Level of Care Code Est Pt Level 4 (69791) Diagnoses Paroxysmal atrial fibrillation I48.0 Second degree atrioventricular block I44.1 Hypercholesterolemia E78.00 Essential hypertension I10 Hypertension type: essential hypertension Generalized anxiety disorder F41.1 Impacted cerumen of both ears H61.23 Dizziness R42
== END 2023-03-27 10:09 | disposition home or self-care (01) ==
PROVIDERS: PCP Internal Medicine; Visit Provider Internal Medicine
DX: I48.0 Paroxysmal atrial fibrillation (principal); I44.1 Atrioventricular block, second degree; E78.00 Pure hypercholesterolemia, unspecified; I10 Essential (primary) hypertension; F41.1 Generalized anxiety disorder; H61.23 Impacted cerumen, bilateral; R42 Dizziness and giddiness
CPT/HCPCS: 99214

== ENCOUNTER → 2023-05-09 23:59 | Outpatient (BNV) | payer MEDICARE, SELFPAY ==
--- NOTE | 2023-05-10 09:38 | A.OFFVIS_ITS ---
Intake Intake Visit Reasons: Remote Device Check- [facility] Allergies amiodarone Adverse Reaction (Intermediate, Verified 03/27/23 09:36) visual problem dronedarone [From Multaq] Adverse Reaction (Intermediate, Verified 03/27/23 09:36) not effective [facility] Medical History (Updated 03/27/23 @ 10:06 by Ger Granda MD) Osteopenia of multiple sites Osteopenia Cardiac pacemaker in situ Paroxysmal atrial fibrillation Impacted cerumen of both ears Hypercholesterolemia Hypertension Current use of anticoagulant therapy Surgical History Eye globe prosthesis Social History Household Members: Spouse Housing: House Do you presently have visiting nurse or other home services: No Alcohol intake: never Patient Tobacco Use Status: Never used Tobacco e-Cigarette/Vaping Use: Never Used Second Hand Smoke Exposure: No service: No Current occupational status: retired Cognitive needs: No Hearing needs: No Vision needs: Yes Office Procedures Cardiac Device Check Cardiac Device Check Details: Remote pacemaker report generated 05/09/2023. Pacemaker function is adequate. [place] of atrial fibrillation at 12% [id number] Cardiac Device Interrogation, pacemaker Procedure code (CPT) selection complete Assessment & Plan Assessment & Plan (1) Cardiac pacemaker in situ: Comment: Dual-chamber [employer] pacemaker placed for transient AV block Code(s): Z95.0 - Presence of cardiac pacemaker Plan: See above Coding Level of Care Code Procedure Only Diagnoses Cardiac pacemaker in situ Z95.0 CPT Codes Cardiac Device Check - Cardiac Device 12: [id number] Cardiac Device Interrogat ion, pacemaker ([id number])
== END ==
PROVIDERS: PCP Internal Medicine; Visit Provider Internal Medicine Cardiovascular Disease
DX: Z95.0 Presence of cardiac pacemaker (principal)
CPT/HCPCS: 93294

== ENCOUNTER → 2023-08-08 23:59 | Outpatient (BNV) | payer MEDICARE, SELFPAY ==
--- NOTE | 2023-08-09 08:44 | MHC.OFFVIS ---
Intake Visit Reasons: Remote Device Check- [facility] Allergies amiodarone Adverse Reaction (Intermediate, Verified 03/27/23 09:36) visual problem dronedarone [From Multaq] Adverse Reaction (Intermediate, Verified 03/27/23 09:36) not effective [facility] Medical History (Updated 03/27/23 @ 10:06 by Ger Granda MD) Osteopenia of multiple sites Osteopenia Cardiac pacemaker in situ Paroxysmal atrial fibrillation Impacted cerumen of both ears Hypercholesterolemia Hypertension Current use of anticoagulant therapy Surgical History Eye globe prosthesis Social History Household Members: Spouse Housing: House Do you presently have visiting nurse or other home services: No Alcohol intake: never Patient Tobacco Use Status: Never used Tobacco e-Cigarette/Vaping Use: Never Used Second Hand Smoke Exposure: No service: No Current occupational status: retired Cognitive needs: No Hearing needs: No Vision needs: Yes Office Procedures Cardiac Device Check Cardiac Device Check Details: Remote pacemaker report generated 08/08/2023. Pacemaker function is adequate. Atrial fibrillation burden at 5.7% [id number] Cardiac Device Interrogation, pacemaker Procedure code (CPT) selection complete Assessment & Plan Assessment & Plan (1) Cardiac pacemaker in situ: Comment: Dual-chamber [employer] Negro pacemaker placed for transient AV block Code(s): Z95.0 - Presence of cardiac pacemaker Category: Medical Plan: See above Coding Level of Care Code Procedure Only Diagnoses Cardiac pacemaker in situ Z95.0 CPT Codes Cardiac Device Check - Cardiac Device 12: [id number] Cardiac Device Interrogation, pacemaker ([id number])
== END ==
PROVIDERS: PCP Internal Medicine; Visit Provider Internal Medicine Cardiovascular Disease
DX: I48.91 Unspecified atrial fibrillation (principal); Z95.0 Presence of cardiac pacemaker
CPT/HCPCS: 93294

== ENCOUNTER 2023-09-04 10:37 | Outpatient (AMB) | payer BC, SELFPAY ==
[2023-09-04 10:55] VITALS: BP 122/70; PULSE 60; BMI 26.3
--- NOTE | 2023-09-04 10:55 | A.OFFVIS_ITS ---
Vital Signs 09/04/23 10:55 Height 5 ft 6 in Weight 163 lb 2.273 oz BMI 26.3 BP 122/70 Blood Pressure Location Lt brachial Position Sitting Pulse 60 Intake Visit Reasons: 6 mth f/up Intake Note: 6 month follow-up with ekg and [facility] Negro check feeling ok Hooker Machine Tender Required: No Allergies amiodarone Adverse Reaction (Intermediate, Verified 03/27/23 09:36) visual problem dronedarone [From Multaq] Adverse Reaction (Intermediate, Verified 03/27/23 09:36) not effective Medication List - Last Reconciled 09/04/23 by Sandeep Cid MD apixaban (Eliquis) 5 mg PO BID 90 days atorvastatin 80 mg PO DAILY ezetimibe 10 mg PO DAILY flecainide 150 mg PO Q12H metoprolol tartrate 25 mg PO BID HPI Comments Details: Sivan comes for follow-up. Patient has been feeling very well. She feels pretty energetic. She is doing everything that she can. She denies any exertional chest pain or shortness of breath. No prolonged palpitation irregular heartbeat. No lightheadedness, syncope. No bleeding issues or neurologic events. No heart failure symptoms. [facility] Medical History (Updated 03/27/23 @ 10:06 by Ger Granda MD) Osteopenia of multiple sites Osteopenia Cardiac pacemaker in situ Paroxysmal atrial fibrillation Impacted cerumen of both ears Hypercholesterolemia Hypertension Current use of anticoagulant therapy Surgical History Eye globe prosthesis Social History Household Members: Spouse Housing: House Do you presently have visiting nurse or other home services: No Alcohol intake: never Patient Tobacco Use Status: Never used Tobacco e-Cigarette/Vaping Use: Never Used Second Hand Smoke Exposure: No service: No Current occupational status: retired Cognitive needs: No Hearing needs: No Vision needs: Yes Review of Systems Const Denies chills, Denies fatigue, Denies fever(s), Denies frequent falls, Denies weakness, Denies weight gain and Denies weight loss ENT Denies dizziness Card Denies chest pain, Denies leg edema, Denies lightheadedness, Denies palpitatio ns, Denies dyspnea, Denies dyspnea on exertion, Denies orthopnea and Denies other (loss of consciousness) Resp Denies cough, Denies dyspnea and Denies dyspnea on exertion GI Denies hematochezia and Denies change in stool character Musc Denies abnormal gait, Denies muscle weakness, Denies numbness, Denies radiating pain into limb and Denies tingling Neuro Denies abnormal gait, Denies dizziness, Denies frequent falls, Denies numbness, Denies tingling and Denies weakness Endo Denies fatigue and Denies palpitations Physical Exam Vital Signs: Last Vital Signs Pulse 60 09/04/23 10:55 BP 122/70 09/04/23 10:55 BMI result Body Mass Index 26.3 Const General: cooperative, comfortable, no acute distress, alert, awake, anxious and well groomed Nutritional Appearance: average body habitus Orientation/consciousness: patient oriented x3 Limitations: no limitations Neck Neck: Yes trachea midline, Yes supple and Yes no JVD Resp Effort & Inspection: normal respiratory effort Auscultation: clear to auscultation bilaterally Cardio Jugular venous distension: no JVD Palpation: normal PMI Rate: regular rate Rhythm: regular rhythm Heart sounds: S1 normal heart sound present, S2 normal heart sound present, no click, no gallops, no murmurs and no rubs GI Auscultation: normal bowel sounds Skin General skin exam: no rashes or lesions noted Neuro General: patient oriented x3 and no focal motor deficits Extrem General: Yes no clubbing, cyanosis or edema Psych Appearance: grossly normal Office Procedures Cardiac Device Check Cardiac Device Check Details: Dual-chamber [employer] Negro pacemaker in place. Programmed in DDDR at 60 beats per minute. Atrial pacing 97% of time. Ventricular pacing 15% of time. No episodes of atrial fibrillation noted. Atrial pacing thresholds are adequate and in our capture mode. Ventricular capture thresholds are excellent and reprogrammed to enhance battery life. Atrial ventricular sensing is adequate. Pacing lead impedance is stable. Battery life is at 3.7 years [id number] Cardiac Device Check, pacemaker dual lead Procedure code (CPT) selection complete EKG Details: EKG shows atrially paced ventricularly sensed rhythm with T-wave inversion anterior lead most likely suggestive of repolarization abnormality [id number], Complete Assessment & Plan Assessment & Plan (1) Paroxysmal atrial fibrillation: Code(s): I48.0 - Paroxysmal atrial fibrillation Category: Medical Plan: Paroxysmal atrial fibrillation which has remained suppressed and has done very well with rhythm control approach on current medical therapy. Continue flecainide therapy. Continue concomitant rate lowering medications. Continue full oral anticoagulation, currently on Eliquis 5 mg b.i.d.. Semi annual renal function test and annual CBC should be performed. Avoidance of stimulants was discussed advised to call me with worsening symptoms. (2) Cardiac pacemaker in situ: Comment: Dual-chamber [employer] pacemaker placed for transient AV block Code(s): Z95.0 - Presence of cardiac pacemaker Category: Medical Plan: Cardiac pacemaker in-situ for sick sinus syndrome. Pacemaker is working well. Reprogrammed for adequate function. Will follow remotely every 3 months and follow up in the clinic in 6 months time. (3) Elevated brain natriuretic peptide (BNP) level: Code(s): R79.89 - Other specified abnormal findings of blood chemistry Category: Medical Plan: Prior elevated BNP with more persistent atrial fibrillation. Clinically appears to be euvolemic and well compensated without any signs or symptoms of heart failure. Will check BNP. Will obtain echocardiogram near future. Continue aggressively rhythm control approach. Continue aggressive blood pressure control which is currently well optimized. Advised to monitor for signs and symptoms of heart failure. Avoidance of salt loading was discussed. Follow up in the clinic in 6 months time, sooner p.r.n.. Thank you for allowing me to partake in the care Orders: Orders B Type Natriuretic Peptide Today I48.0 - Paroxysmal atrial fibrillation Basic Metabolic Panel Today I48.0 - Paroxysmal atrial fibrillation Coding Level of Care Code Est Pt Level 4 (28256) Diagnoses Paroxysmal atrial fibrillation I48.0 Cardiac pacemaker in situ Z95.0 Elevated brain natriuretic peptide (BNP) level R79.89 CPT Codes Cardiac Device Check - Cardiac Device 2: [id number] Cardiac Device Check, pacemaker dual lead ([id number]) EKG - CPT: 93551-[id number], Complete ([id number])
== END 2023-09-04 11:20 | disposition home or self-care (01) ==
PROVIDERS: PCP Internal Medicine; Visit Provider Internal Medicine Cardiovascular Disease
DX: I48.0 Paroxysmal atrial fibrillation (principal); Z95.0 Presence of cardiac pacemaker; R79.89 Other specified abnormal findings of blood chemistry; R94.31 Abnormal electrocardiogram [ECG] [EKG]
CPT/HCPCS: 93010; 93280; 99214

== ENCOUNTER 2023-09-04 10:37 | Outpatient (REF) | payer MEDICARE, SELFPAY ==
[2023-09-04 12:48] LABS: Anion Gap 17 (12-20); Blood Urea Nitrogen 30 mg/dL (9-16); Calcium 10.5 mg/dL (8.4-10.2); Carbon Dioxide 25 mmol/L (22-29); Chloride 105 mmol/L (96-108); Estimated Glomerular Filt Rate > 60; Glucose Random 82 mg/dL (60-115); Potassium 4.5 mmol/L (3.3-5.1); Sodium 142 mmol/L (135-145)
[2023-09-04 12:54] LABS: B Type Natriuretic Peptide 54 pg/mL (<100)
== END 2023-09-04 10:38 | disposition home or self-care (01) ==
LOC: HO.LAB 10:37
PROVIDERS: PCP Internal Medicine; Visit Provider Internal Medicine Cardiovascular Disease
DX: I48.0 Paroxysmal atrial fibrillation (principal); R79.89 Other specified abnormal findings of blood chemistry; Z45.018 Encounter for adjustment and management of other part of cardiac pacemaker
CPT/HCPCS: 36415; 80048; 83880; 93005; 93280

== ENCOUNTER 2023-09-25 14:10 | Outpatient (AMB) | payer MEDICARE, SELFPAY ==
[2023-09-25 14:17] VITALS: BP 110/68; PULSE 60; O2SAT 93; BMI 26.6
--- NOTE | 2023-09-25 14:17 | MHC.PC.OV ---
Vital Signs 09/25/23 14:17 Height 5 ft 6 in Weight 165 lb BMI 26.6 BP 110/68 Blood Pressure Location Lt brachial Position Sitting Pulse 60 Pulse Source Pulse Oximeter Pulse Oximetry (%) 93 Oxygen Delivery Method Room Air Intake Visit Reasons: Atrial fibrillation Veteran Appeals Reviewer Required: No Allergies amiodarone Adverse Reaction (Intermediate, Verified 09/25/23 14:17) visual problem dronedarone [From Multaq] Adverse Reaction (Intermediate, Verified 09/25/23 14:17) not effective Tobacco use date assessed: 03/27/23 Fall risk assessment: No Falls in past year Last assessed Fall Risk: 09/25/23 Dental Screening Dental Screen Date: 03/27/23 HPI Atrial fibrillation HPI Details 78-year-old female with atrial fibrillation second-degree AV block with a pacemaker, hypertension hypercholesterolemia generalized anxiety disorder coming in for follow-up. Patient's mammogram is up-to-date colonoscopy is up-to-date bone density is due. Patient follows up with Cardiology August 2023 suppressed atrial fibrillation on flecainide anticoagulation twice a day your blood work [facility] Medical History (Updated 03/27/23 @ 10:06 by Ger Granda MD) Osteopenia of multiple sites Osteopenia Cardiac pacemaker in situ Paroxysmal atrial fibrillation Impacted cerumen of both ears Hypercholesterolemia Hypertension Current use of anticoagulant therapy Surgical History Eye globe prosthesis Social History Household Members: Spouse Housing: House Do you presently have visiting nurse or other home services: No Alcohol intake: never Patient Tobacco Use Status: Never used Tobacco e-Cigarette/Vaping Use: Never Used Second Hand Smoke Exposure: No service: No Current occupational status: retired Cognitive needs: No Hearing needs: No Vision needs: Yes Questionnaire PHQ-9 Over the last 2 weeks, how often have you been bothered by any of the following problems? 1. Little interest or pleasure in doing things: not at all 2. Feeling down, depressed, or hopeless: not at all 3. Trouble falling or staying asleep, or sleeping too much: not at all 4. Feeling tired or having little energy: not at all 5. Poor appetite or overeating: not at all 6. Feeling bad about yourself - or that you are a failure or have let yourself or your family down: not at all 7. Trouble concentrating on things, such as reading the newspaper or watching television: not at all 8. Moving or speaking so slowly that other people could have noticed. Or the opposite - being so fidgety or restless that you have been moving around a lot more than usual: not at all 9. Thoughts that you would be better off or of hurting yourself in some way: not at all Total score: 0 Depression Screening Interpretation: Negative Depression Screening Done: Yes Source: Developed by Drs. Ced York, Moriah Nugent, Kamlesh Bauer and colleagues, with an educational angie from [employer]. Thrive Questionnaire Date Thrive assessed: 03/27/23 AUDIT C Alcohol Use Questionnaire (AUDIT-C) 1. How often do you have a drink containing alcohol?: Never 3. How often do you have six or more drinks on one occasion?: Never Total Score: 0 GREG-7 AMB Questionnaire GREG-7 Date GREG - 7 assessed: 03/27/23 Source: Developed by Drs. Ced York, Moriah Nugent, Kamlesh Bauer and colleagues, with an educational angie from [employer]. Physical exam (Primary Care) Vital Signs: Last Vital Signs Pulse 60 09/25/23 14:17 BP 110/68 09/25/23 14:17 Pulse Ox 93 09/25/23 14:17 Oxygen Delivery Method Room Air 09/25/23 14:17 BMI result Body Mass Index 26.6 Tobacco/Smoking Status: Tobacco use Status Tobacco use date assessed 03/27/23 09/25/23 14:22 Patient Tobacco Use Status Never used Tobacco 09/25/23 14:22 e-Cigarette/Vaping Use Never Used 09/25/23 14:22 PHQ-9: PHQ-9 Score PHQ-9: Total score 0 09/25/23 14:24 Depression Screening Interpretation: Negative Thrive Assessment: Date of Thrive Assessment Date Thrive assessed 03/27/23 09/25/23 14:22 Const General: alert; No acute distress Eyes Conjunctivae: conjunctivae normal Resp Auscultation: clear to auscultation bilaterally Cardio Rate: regular rate Rhythm: regular rhythm GI Inspection: Yes normal to inspection Extrem General: Yes normal to inspection and No edema Assessment and Plan Assessment & Plan (1) Age-related osteoporosis without current pathological fracture: Code(s): M81.0 - Age-related osteoporosis without current pathological fracture Plan: Patient is reminded about bone density (2) Hypercholesterolemia: Code(s): E78.00 - Pure hypercholesterolemia, unspecified Plan: Avoid fried foods, chicken skin, eggs, butter margarine, pastries and meat. Be it pork or beef they have a lot of cholesterol LDL goal of less than 130 and triglyceride of less than 150 taking Zetia 10 mg once a day and atorvastatin 80 mg once a day (3) Cardiac pacemaker in situ: Comment: Dual-chamber [employer] pacemaker placed for transient AV block Code(s): Z95.0 - Presence of cardiac pacemaker Plan: Continue to follow up with Cardiology for pacemaker adjustments. (4) Hypertension: Code(s): I10 - Essential (primary) hypertension Qualifiers: Hypertension type: essential hypertension Qualified Code(s): I10 - Essential (primary) hypertension Plan: Continue with blood pressure medication. Decrease salt intake and exercise on metoprolol 25 mg twice a day (5) Paroxysmal atrial fibrillation: Code(s): I48.0 - Paroxysmal atrial fibrillation Plan: Continue with anticoagulation with Eliquis twice a day year blood work and flecainide Orders: Orders B Type Natriuretic Peptide 6 Months R79.89 - Other specified abnormal findings of blood chemistry Complete Blood Count Auto Diff 6 Months I48.0 - Paroxysmal atrial fibrillation Comprehensive Met. Panel 6 Months I48.0 - Paroxysmal atrial fibrillation Thyroid Stimulating Hormone 6 Months I48.0 - Paroxysmal atrial fibrillation Vitamin D 25-OH Total 6 Months I48.0 - Paroxysmal atrial fibrillation Free T4 (Free Thyroxine) 6 Months I48.0 - Paroxysmal atrial fibrillation Lipid Panel 6 Months E78.00 - Pure hypercholesterolemia, unspecified, I48.0 - Paroxysmal atrial fibrillation Vitamin B12 and Folate 6 Months I48.0 - Paroxysmal atrial fibrillation XR DEXA axial skeleton Today M81.0 - Age-related osteoporosis without current pathological fracture Coding Level of Care Code Est Pt Level 4 (33806) Diagnoses Age-related osteoporosis without current pathological fracture M81.0 Hypercholesterolemia E78.00 Cardiac pacemaker in situ Z95.0 Essential hypertension I10 Hypertension type: essential hypertension Paroxysmal atrial fibrillation I48.0
== END 2023-09-25 14:46 | disposition home or self-care (01) ==
PROVIDERS: PCP Internal Medicine; Visit Provider Internal Medicine
DX: M81.0 Age-related osteoporosis without current pathological fracture (principal); E78.00 Pure hypercholesterolemia, unspecified; Z95.0 Presence of cardiac pacemaker; I48.0 Paroxysmal atrial fibrillation; I10 Essential (primary) hypertension
CPT/HCPCS: 99214

== ENCOUNTER 2023-10-24 08:05 | Outpatient (REF) | payer MEDICARE, SELFPAY ==
--- NOTE | ~2023-10-24 | MM_ITS ---
EXAMINATION: BONE DENSITOMETRY CLINICAL INDICATION: Age-related osteoporosis without current pathological fracture. COMPARISON: Baseline BD dated 06/29/2021. TECHNIQUE: Using a CinnaBid DXA System (software version: 13.1) manufactured by [employer], dual-energy x-ray absorptiometry was performed of the lumbar spine and left hip. The images are of good technical quality. Summary results are attached. FINDINGS: LEFT FEMUR, NECK: Current: BMD 0.741 g/cm2, Z-score -0.3, T-score -2.1, osteopenia. Baseline: BMD 0.638 g/cm2. LEFT FEMUR, TOTAL: Current: BMD 0.723 g/cm2, Z-score -0.6, T-score -2.3, osteopenia, 8.2% increase from baseline (<5% change is not significant). Baseline: BMD 0.668 g/cm2. AP SPINE L1-L4: Current: BMD 0.884 g/cm2, Z-score -1.0, T-score -2.5, osteoporosis, 10.8% increase from baseline (<5% change is not significant). Baseline: BMD 0.798 g/cm2. IDENTIFIED RISK FACTORS: Menopause. HISTORY OF FRACTURE: None listed. MEDICATIONS: None listed. MM/XR DEXA axial skeleton IMPRESSION: 1. DIAGNOSIS: Osteoporosis based on the lowest T-score value of -2.5 in the lumbar spine applying World Health Organization criteria. 2. 10-YEAR FRACTURE RISK PREDICTION, FRAX: According to the guidelines, FRAX calculation should only be performed on patients in the osteopenia bone density category. Therefore, FRAX was not performed on this patient. 3. Treatment Recommendations: NOF guidelines recommend consideration for treatment in postmenopausal women and men age 50 and older presenting with the following: -A hip or vertebral (clinical or morphometric) fracture. -T-score less than or equal to -2.5 at the femoral neck or spine after appropriate evaluation to exclude secondary causes. -Low bone mass at the hip or spine and a 10-year fracture probability by FRAX of greater than or equal to 3% for hip fracture or greater than or equal to 20% for major osteoporotic fracture based on the [place] adapted WHO algorithm. 4. Other Recommendations: All treatment decisions require clinical judgment and consideration of individual patient factors, including patient preferences, comorbidities, previous drug use, risk factors not captured in the FRAX model (e.g. frailty, falls, vitamin D deficiency, increased bone turnover, interval significant decline in bone density) and possible under or overestimation of fracture risk by FRAX. Additional medical evaluation for secondary cause of low bone mineral density may be appropriate. FUTURE SCAN RECOMMENDATION: People with diagnosed cases of osteoporosis or at high risk for fracture should have regular bone mineral density tests. For patients eligible for Medicare, routine testing is allowed once every 2 years. The testing frequency can be increased to one year for patients who have rapidly progressing disease, those who are receiving or discontinuing medical therapy to restore bone mass, or have additional risk factors. Electronically signed by: Mono Owen MD 10/30/2023 11:10 AM EDT RP
== END 2023-10-24 08:06 | disposition home or self-care (01) ==
LOC: HO.MAMMO 08:05
PROVIDERS: PCP Internal Medicine; Visit Provider Internal Medicine
DX: M81.0 Age-related osteoporosis without current pathological fracture (principal)
CPT/HCPCS: 77080

== ENCOUNTER → 2023-11-07 23:59 | Outpatient (BNV) | payer MEDICARE, SELFPAY ==
--- NOTE | 2023-11-08 15:53 | MHC.OFFVIS ---
Intake Visit Reasons: Remote Device Check- [facility] Allergies amiodarone Adverse Reaction (Intermediate, Verified 09/25/23 14:17) visual problem dronedarone [From Multaq] Adverse Reaction (Intermediate, Verified 09/25/23 14:17) not effective [facility] Medical History (Updated 03/27/23 @ 10:06 by Ger Granda MD) Osteopenia of multiple sites Osteopenia Cardiac pacemaker in situ Paroxysmal atrial fibrillation Impacted cerumen of both ears Hypercholesterolemia Hypertension Current use of anticoagulant therapy Surgical History Eye globe prosthesis Social History Household Members: Spouse Housing: House Do you presently have visiting nurse or other home services: No Alcohol intake: never Patient Tobacco Use Status: Never used Tobacco e-Cigarette/Vaping Use: Never Used Second Hand Smoke Exposure: No service: No Current occupational status: retired Cognitive needs: No Hearing needs: No Vision needs: Yes Office Procedures Cardiac Device Check Cardiac Device Check Details: Remote pacemaker report generated 11/07/2023. Pacemaker function is adequate. [place] [id number] Cardiac Device Interrogation, pacemaker Procedure code (CPT) selection complete Assessment & Plan Assessment & Plan (1) Cardiac pacemaker in situ: Comment: Dual-chamber [employer] pacemaker placed for transient AV block Code(s): Z95.0 - Presence of cardiac pacemaker Category: Medical Plan: See above Coding Level of Care Code Procedure Only Diagnoses Cardiac pacemaker in situ Z95.0 CPT Codes Cardiac Device Check - Cardiac Device 12: [id number] Cardiac Device Interrogation, pacemaker ([id number])
== END ==
PROVIDERS: PCP Internal Medicine; Visit Provider Internal Medicine Cardiovascular Disease
DX: I44.39 Other atrioventricular block (principal); Z95.0 Presence of cardiac pacemaker
CPT/HCPCS: 93294

== ENCOUNTER 2023-12-24 14:07 | Outpatient (AMB) | payer MEDICARE, SELFPAY ==
[2023-12-24 14:08] VITALS: BP 138/82; PULSE 68; O2SAT 96; BMI 26.8
--- NOTE | 2023-12-24 14:08 | A.OFFPC_ITS ---
Vital Signs 12/24/23 14:08 Height 5 ft 6 in Weight 166 lb BMI 26.8 BP 138/82 Blood Pressure Location Lt brachial Position Sitting Pulse 68 Pulse Source Pulse Oximeter Pulse Oximetry (%) 96 Oxygen Delivery Method Room Air Intake Visit Reasons: side pain - high bp Allergies amiodarone Adverse Reaction (Intermediate, Verified 12/24/23 14:12) visual problem dronedarone [From Multaq] Adverse Reaction (Intermediate, Verified 12/24/23 14:12) not effective Tobacco use date assessed: 12/24/23 Fall risk assessment: No Falls in past year Last assessed Fall Risk: 12/24/23 Dental Screening Dental Screen Date: 12/24/23 Did you have a dental visit in the last 12 months?: Yes Did you have a dental problem in the last 6 months where you did not have access to dental care?: No Was dental information given to patient?: Patient has dentist HPI side pain - high bp HPI Details 78-year-old female with osteoporosis hyp ercholesterolemia hypertension atrial fibrillation patient has also the pacemaker coming in for follow-up. Last seen in September 2023. Patient's last colonoscopy was 2014, patient is due for mammogram. PAtient has been feeling a little better , just . [facility] Medical History Osteopenia of multiple sites Osteopenia Cardiac pacemaker in situ Paroxysmal atrial fibrillation Impacted cerumen of both ears Hypercholesterolemia Hypertension Current use of anticoagulant therapy Surgical History Eye globe prosthesis Social History Household Members: Spouse Housing: House Do you presently have visiting nurse or other home services: No Alcohol intake: never Patient Tobacco Use Status: Never used Tobacco e-Cigarette/Vaping Use: Never Used Second Hand Smoke Exposure: No service: No Current occupational status: retired Cognitive needs: No Hearing needs: No Vision needs: Yes Questionnaire PHQ-9 Over the last 2 weeks, how often have you been bothered by any of the following problems? 1. Little interest or pleasure in doing things: not at all 2. Feeling down, depressed, or hopeless: not at all 3. Trouble falling or staying asleep, or sleeping too much: not at all 4. Feeling tired or having little energy: not at all 5. Poor appetite or overeating: not at all 6. Feeling bad about yourself - or that you are a failure or have let yourself or your family down: not at all 7. Trouble concentrating on things, such as reading the newspaper or watching television: not at all 8. Moving or speaking so slowly that other people could have noticed. Or the opposite - being so fidgety or restless that you have been moving around a lot more than usual: not at all 9. Thoughts that you would be better off or of hurting yourself in some way: not at all Total score: 0 Depression Screening Interpretation: Negative Depression Screening Done: Yes Source: Developed by Drs. Ced York, Moriah Nugent, Kamlesh Bauer and colleagues, with an educational angie from [employer]. Thrive Questionnaire Date Thrive assessed: 12/24/23 I am a: Patient What is your living situation today?: I have a steady place to live Within the past 12 months, did the food you bought not last and you didn't have the money to get more?: Never true Within the past 12 months, did you worry whether your food would run out before you got money to buy more?: Never true Do you have trouble paying for medicines?: No Do you have trouble getting transportation to medical appointments?: No Do you have trouble paying your heating and electricity bill?: No Do you have trouble taking care of your child, family member or friend?: No Do you have trouble with day-to-day activities such as bathing, preparing meals, shopping, managing finances, etc.?: No Are you currently unemployed and looking for a job?: No Are you interested in more education?: No Please select the resources that you would like help with: None THRIVE Score: 0 AUDIT C Alcohol Use Questionnaire (AUDIT-C) 1. How often do you have a drink containing alcohol?: Never 3. How often do you have six or more drinks on one occasion?: Never Total Score: 0 GREG-7 AMB Questionnaire GREG-7 Date GREG - 7 assessed: 12/24/23 Feeling nervous, anxious, or on edge: 0 = Not at all Not being able to stop or control worryin = Not at all Worrying too much about different things: 0 = Not at all Trouble relaxin = Not at all Being so restless that it is hard to sit still: 0 = Not at all Becoming easily annoyed or irritable: 0 = Not at all Feeling afraid as if something awful might happen: 0 = Not at all Total GREG-7 score (0-4 normal; 5-9 mild; 10-14 moderate; 15-21 severe): 0 Source: Developed by Drs. Ced York, Moriah Nugent, Kamlesh Bauer and colleagues, with an educational angie from [employer]. Physical exam (Primary Care) Vital Signs: Last Vital Signs Pulse 68 12/24/23 14:08 BP 138/82 12/24/23 14:08 Pulse Ox 96 12/24/23 14:08 Oxygen Delivery Method Room Air 12/24/23 14:08 BMI result Body Mass Index 26.8 Tobacco/Smoking Status: Tobacco use Status Tobacco use date assessed 12/24/23 12/24/23 14:13 Patient Tobacco Use Status Never used Tobacco 12/24/23 14:13 e-Cigarette/Vaping Use Never Used 12/24/23 14:13 PHQ-9: PHQ-9 Score PHQ-9: Total score 0 12/24/23 14:47 Depression Screening Interpretation: Negative Thrive Assessment: Date of Thrive Assessment Date Thrive assessed 12/24/23 12/24/23 14:13 Const General: alert; No acute distress Eyes Conjunctivae: conjunctivae normal Resp Auscultation: clear to auscultation bilaterally Cardio Rate: regular rate Rhythm: regular rhythm GI Inspection: Yes normal to inspection Extrem General: Yes normal to inspection and No edema Coding Level of Care Code Est Pt Level 4 (56849) Diagnoses Paroxysmal atrial fibrillation I48.0 Essential hypertension I10 Hypertension type: essential hypertension Hypercholesterolemia E78.00 Generalized anxiety disorder F41.1 Sacroiliac joint pain M53.3 Assessment & Plan Assessment & Plan (1) Paroxysmal atrial fibrillation: Code(s): I48.0 - Paroxysmal atrial fibrillation Category: Medical Plan: Continue with anticoagulation and flecainide advised to get renal function twice a day year. (2) Hypertension: Code(s): I10 - Essential (primary) hypertension Category: Medical Qualifiers: Hypertension type: essential hypertension Qualified Code(s): I10 - Essential (primary) hypertension Plan: Continue with blood pressure medication. Decrease salt intake and exercise patient takes metoprolol tartrate 25 mg twice a day (3) Hypercholesterolemia: Code(s): E78.00 - Pure hypercholesterolemia, unspecified Category: Medical Plan: Avoid fried foods, chicken skin, eggs, butter margarine, pastries and meat. Be it pork or beef they have a lot of cholesterol LDL goal of less than 100 and triglyceride of less than 150 on atorvastatin 80 mg once a day (4) Generalized anxiety disorder: Code(s): F41.1 - Generalized anxiety disorder Category: Medical Plan: Stable (5) Sacroiliac joint pain: Code(s): M53.3 - Sacrococcygeal disorders, not elsewhere classified Category: Medical Plan: X-ray has been requested Orders: Orders XR sacroiliac joint min 3V Today M53.3 - Sacrococcygeal disorders, not elsewhere classified
== END 2023-12-24 15:07 | disposition home or self-care (01) ==
PROVIDERS: PCP Internal Medicine; Visit Provider Internal Medicine
DX: I48.0 Paroxysmal atrial fibrillation (principal); I10 Essential (primary) hypertension; E78.00 Pure hypercholesterolemia, unspecified; F41.1 Generalized anxiety disorder; M53.3 Sacrococcygeal disorders, not elsewhere classified

== ENCOUNTER → 2023-12-24 14:07 | Outpatient (BNVA) | payer MEDICARE, SELFPAY | PROVIDERS: PCP Internal Medicine; Visit Provider Internal Medicine | DX: I48.0 Paroxysmal atrial fibrillation (principal); I10 Essential (primary) hypertension; E78.00 Pure hypercholesterolemia, unspecified; F41.1 Generalized anxiety disorder; M53.3 Sacrococcygeal disorders, not elsewhere classified | CPT/HCPCS: 96127; 99212 ==

== ENCOUNTER 2023-12-27 14:18 | Outpatient (REF) | payer MEDICARE, SELFPAY | END 2023-12-27 14:19 | disposition home or self-care (01) | LOC: HO.XRAY 14:18 | PROVIDERS: PCP Internal Medicine; Visit Provider Internal Medicine | DX: M53.3 Sacrococcygeal disorders, not elsewhere classified (principal) | CPT/HCPCS: 72202 ==

== ENCOUNTER → 2024-02-06 23:59 | Outpatient (BNV) | payer MEDICARE, SELFPAY ==
--- NOTE | 2024-02-18 10:23 | MHC.OFFVIS ---
Intake Visit Reasons: Remote Device Check- [facility] Allergies amiodarone Adverse Reaction (Intermediate, Verified 12/24/23 14:12) visual problem dronedarone [From Multaq] Adverse Reaction (Intermediate, Verified 12/24/23 14:12) not effective PFSH Medical History Osteopenia of multiple sites Osteopenia Cardiac pacemaker in situ Paroxysmal atrial fibrillation Impacted cerumen of both ears Hypercholesterolemia Hypertension Current use of anticoagulant therapy Surgical History Eye globe prosthesis Social History Household Members: Spouse Housing: House Do you presently have visiting nurse or other home services: No Alcohol intake: never Patient Tobacco Use Status: Never used Tobacco e-Cigarette/Vaping Use: Never Used Second Hand Smoke Exposure: No service: No Current occupational status: retired Cognitive needs: No Hearing needs: No Vision needs: Yes Office Procedures Cardiac Device Check Cardiac Device Check Details: Remote pacemaker report generated 02/06/2024. Pacemaker function is adequate. Minimal burden of atrial fibrillation [id number] Cardiac Device Interrogation, pacemaker Procedure code (CPT) selection complete Assessment & Plan Assessment & Plan (1) Cardiac pacemaker in situ: Comment: Dual-chamber [facility] [employer] pacemaker placed for transient AV block Code(s): Z95.0 - Presence of cardiac pacemaker Category: Medical Plan: See above Coding Level of Care Code Procedure Only Diagnoses Cardiac pacemaker in situ Z95.0 CPT Codes Cardiac Device Check - Cardiac Device 12: [id number] Cardiac Device Interrogation, pacemaker ([id number])
== END ==
PROVIDERS: PCP Internal Medicine; Visit Provider Internal Medicine Cardiovascular Disease
DX: I48.91 Unspecified atrial fibrillation (principal); Z95.0 Presence of cardiac pacemaker
CPT/HCPCS: 93294

== ENCOUNTER → 2024-02-14 09:51 | Outpatient (REF) | payer MEDICARE, SELFPAY ==
--- NOTE | 2024-02-14 09:59 | CA_ITS ---
Transthoracic Echocardiogram Patient (Last, First, Middle): Sivan Luis, Gender: Female Date of : 1945 Age: 78 Procedure Date: 02/14/2024 Procedure Type: Transthoracic Echocardiogram Location: OP Height: 198.12 cm Weight: 75.3 kg BSA: 2.09 m2 Heart Rate: 60 bpm BP: 138 / 82 mmHg Chief Guard: MARÍA Referring MD: Sandeep Cid MD [place] [place] Singer: Sandeep Cid MD Symptoms: I48.0 - Paroxysmal atrial fibrillation Study Quality: Adequate ECG Rhythm: Sinus Conclusions: - 1. Normal LV ejection fraction of 60 65% with impaired relaxation filling pattern 2. Mild mitral regurgitation 3. Normal RV systolic pressure 4. No gross pericardial effusion Findings Left Ventricle Normal left ventricular size, thickness, and systolic function. The visually estimated ejection fraction is between 60-65%. Spectral Doppler is indicative of an impaired relaxation filling pattern. Right Ventricle Normal right ventricular cavity size and systolic function. There is a pacemaker wire seen in the right ventricle. Atria The left atrium is likely dilated. There is no evidence of interatrial shunt. The right atrium is normal in size. A pacemaker wire is identified in the right atrium. Aortic Valve The aortic valve structure and function is likely normal. There is no aortic valve stenosis. There is no aortic valve regurgitation. Mitral Valve There is mild anterior and posterior mitral leaflet thickening. There is mild mitral annular calcification. There is mild mitral valve regurgitation. There is no mitral valve stenosis. Pulmonic Valve The pulmonic valve is likely normal. Tricuspid Valve Likely normal tricuspid valve structure and function. There is mild tricuspid valve regurgitation. The right ventricular systolic pressure is normal. The right ventricular systolic pressure is 25 mmHg. Normal right atrial pressure. There is no evidence of pulmonary hypertension. Great Vessels All visible segments of the aorta are normal in size. The pulmonary artery was not well visualized. There is no dilatation of the ascending aorta measuring 3.20 cm. Venous The inferior vena cava is normal in size and collapses greater than 50% with inspiration. Pericardium/Pleural There is no evidence of pericardial effusion. Prior Study Comparison No significant change compared to prior study dated: 10/13/2021. Measurements 2D Linear Measurements IVSd: 1.00 0.6-0.9/0.6-1.0 cm LVIDd: 3.92 3.9-5.3/4.2-5.9 cm LVIDd Index: 1.88 2.4-3.2/2.2-3.1 cm/m2 LVIDs: 2.44 2.0-3.6 cm LVPWd: 0.69 0.7-1.1 cm LA Diam: 2.90 2.7-3.8/3.0-4.0 cm LAIDs Index: 1.39 1.5-2.3 cm/m2 LV Mass: 121.37 67-162/88-224 g LV Mass Index: 58.07 43-95/49-115 g/m2 LVOT Diam: 2.00 3.0+(-)1.3 cm 2D Systolic Function EF 4C: 65.50 >55% EF 2C: 61.60 >55% EF BiP: 63.80 >55% Mitral Valve MV Pk E: 0.58 MV PK A: 0.60 MV Decel Time: 210.00 E/A: 1.00 E'Lateral: 4.46 E'Medial: 4.13 E/E' Med: 14.10 E/E' Lat: 13.10 PHT: 61.00 MVA PHT: 3.61 Decel [place]: 2.78 Aortic Valve AoV Pk Stanislav: 1.05 AoV Pk Grad: 4.00 CORBY: 1.97 LVOT LVOT Pk Stanislav: 0.66 LVOT Mn Stanislav: 0.43 LVOT VTI: 0.15 LVOT Pk Grad: 2.00 LVOT Mn Grad: 1.00 LVOT Diam: 2.00 LVOT Area: 3.14 Diastolic Function MV Pk E: 0.58 MV Pk A: 0.60 E/A: 1.00 E'Medial: 4.13 E/E' Med: 14.10 E' Laterial: 4.46 E/E' Lat: 13.10 Right Ventricle TAPSE (mm): 23.00 Tricuspid Valve TR Pk Stanislav: 2.34 TR Pk Grad: 22.00 RA Press: 3.00 RVSP: 25.00 Great Vessels Aorta Sinus of Valsalva: 3.20 2.0-3.5 cm Ao Asc: 3.20 2.1-3.4 cm Pulmonary Veins Pulm Vein S/D 0.80 Pulmonary Valve PV Pk Stanislav: 0.54 Peak PV Grad: 1.00 Updated in Other Vendor System with Status of Final Sandeep Cid MD electronically signed on 02/15/2024 3:04:47 PM with status of Final
[2024-02-14 10:46] LABS: MANUAL DIFF FLAG NO
[2024-02-14 11:19] LABS: Basophils Percent Auto 0.5 % (0-2); Eosinophils Absolute Auto 0.1 X10*3/uL (0.0-0.4); Eosinophils Percent Auto 1.2 % (0-4); Hematocrit 39.3 % (37.0-47.0); Hemoglobin 12.7 g/dl (12.0-16.0); Imm Gran Abs Auto 0.02 X10*3/uL (0.00-0.03); Imm Gran Pct Auto 0.3 % (0.0-0.4); Lymphocytes Absolute Auto 1.6 X10*3/uL (1.2-4.9); Lymphocytes Percent Auto 27.8 % (20-40); Mean Corpuscular HGB Conc 32.3 g/dl (31.0-35.0); Mean Corpuscular Hemoglobin 31.3 pg (27.0-33.0); Mean Corpuscular Volume 96.8 fL (80.0-98.0); Mean Platelet Volume 10.4 fL (9.4-12.3); Monocytes Absolute Auto 0.4 X10*3/uL (0.1-1.2); Monocytes Percent Auto 7.4 % (2-11); Neutrophils Absolute Auto 3.7 x10*3/uL (2.0-8.3); Neutrophils Percent Auto 62.8 % (45-73); Platelet Count 245 X10*3/uL (160-400); Red Blood Count 4.06 X10*6/uL (4.20-5.50); Red Cell Distribution Width 11.9 % (11.0-16.0); White Blood Count 5.8 X10*3/uL (4.8-10.8)
[2024-02-14 11:38] LABS: B Type Natriuretic Peptide 109 pg/mL (<100)
[2024-02-14 12:08] LABS: Alanine Aminotransferase 36 U/L (0-31); Alkaline Phosphatase 87 U/L (39-117); Anion Gap 9 (12-20); Aspartate Amino Transferase 31 U/L (5-31); Bilirubin Total 0.4 mg/dL (0.0-1.0); Blood Urea Nitrogen 23 mg/dL (9-16); Calcium 9.4 mg/dL (8.4-10.2); Carbon Dioxide 31 mmol/L (22-29); Chloride 106 mmol/L (96-108); Cholesterol 166 mg/dL (<200); Estimated Glomerular Filt Rate > 60; Glucose Random 77 mg/dL (60-115); HDL Cholesterol 63 mg/dL (>40); LDL Cholesterol Calculated 88 mg/dL (<100); Potassium 4.3 mmol/L (3.3-5.1); Sodium 142 mmol/L (135-145); Total Protein 6.8 g/dL (6.5-8.0); Triglycerides 76 mg/dL (<150)
[2024-02-14 12:14] LABS: Free T4 (Free Thyroxine) 0.88 ng/dL (0.71-1.85); Thyroid Stimulating Hormone 1.99 uIU/mL (0.32-4.0); Vitamin D 25-OH Total 38.4 ng/mL (>30)
[2024-02-14 12:19] LABS: Folate 10.5 ng/mL (> or = 4.0); Vitamin B12 547 pg/mL (200-900)
== END ==
LOC: HO.CARD 09:51
PROVIDERS: Absent Provider Internal Medicine; PCP Internal Medicine; Visit Provider Internal Medicine Cardiovascular Disease
DX: I48.0 Paroxysmal atrial fibrillation (principal); R79.89 Other specified abnormal findings of blood chemistry; E78.00 Pure hypercholesterolemia, unspecified
CPT/HCPCS: 36415; 80053; 80061; 82306; 82607; 82746; 83880; 84439; 84443; 85025; 93306

== ENCOUNTER → 2024-02-14 09:59 | Outpatient (BNV) | payer MEDICARE, SELFPAY | PROVIDERS: Absent Provider Internal Medicine; PCP Internal Medicine; Visit Provider Internal Medicine Cardiovascular Disease | DX: I34.0 Nonrheumatic mitral (valve) insufficiency (principal); I36.1 Nonrheumatic tricuspid (valve) insufficiency | CPT/HCPCS: 93306 ==

== ENCOUNTER 2024-02-19 10:45 | Outpatient (AMB) | payer BC, SELFPAY ==
--- NOTE | 2024-02-19 10:47 | MHC.OFFVIS ---
Vital Signs 02/19/24 10:48 Height 5 ft 6 in Weight 165 lb 5.547 oz BMI 26.7 BP 120/76 Blood Pressure Location Lt brachial Position Sitting Pulse 60 Intake Visit Reasons: 6 mth f/up Intake Note: 6 month follow-up with [facility] Negro after echo feeling good Local Delivery Driver Required: No Allergies amiodarone Adverse Reaction (Intermediate, Verified 12/24/23 14:12) visual problem dronedarone [From Multaq] Adverse Reaction (Intermediate, Verified 12/24/23 14:12) not effective Medication List - Last Reconciled 02/19/24 by Sandeep Cid MD apixaban (Eliquis) 5 mg PO BID 90 days atorvastatin 80 mg PO DAILY ezetimibe 10 mg PO DAILY flecainide 150 mg PO Q12H metoprolol tartrate 25 mg PO BID HPI Comments Details: Sivan comes for follow-up. She has been doing very well from cardiac perspective. She has had no recurrent episodes of atrial fibrillation. She is still grieving the loss of her from 5 months ago. She is not having any lightheadedness, syncope. No exertional chest pain or shortness of breath. No heart failure symptoms of orthopnea, PND, leg edema, abdominal distension. Takes all her medications. No bleeding issues or neurologic events. [facility] Medical History Osteopenia of multiple sites Osteopenia Cardiac pacemaker in situ Paroxysmal atrial fibrillation Impacted cerumen of both ears Hypercholesterolemia Hypertension Current use of anticoagulant therapy Surgical History Eye globe prosthesis Social History Household Members: Spouse Housing: House Do you presently have visiting nurse or other home services: No Alcohol intake: never Patient Tobacco Use Status: Never used Tobacco e-Cigarette/Vaping Use: Never Used Second Hand Smoke Exposure: No service: No Current occupational status: retired Cognitive needs: No Hearing needs: No Vision needs: Yes Review of Systems Const Denies chills, Denies fatigue, Denies fever(s), Denies frequent falls, Denies weakness, Denies weight gain and Denies weight loss ENT Denies dizziness Card Denies chest pain, Denies leg edema, Denies lightheadedness, Denies palpitations, Denies dyspnea, Denies dyspnea on exertion, Denies orthopnea and Denies other (loss of consciousness) Resp Denies cough, Denies dyspnea and Denies dyspnea on exertion GI Denies hematochezia and Denies change in stool character Musc Denies abnormal gait, Denies muscle weakness, Denies numbness, Denies radiating pain into limb and Denies tingling Neuro Denies abnormal gait, Denies dizziness, Denies frequent falls, Denies numbness, Denies tingling and Denies weakness Endo Denies fatigue and Denies palpitations Physical Exam Vital Signs: Last Vital Signs Pulse 60 02/19/24 10:48 BP 120/76 02/19/24 10:48 BMI result Body Mass Index 26.7 Const General: cooperative, comfortable, no acute distress, alert, awake, anxious and well groomed Nutritional Appearance: average body habitus Orientation/consciousness: patient oriented x3 Limitations: no limitations Neck Neck: Yes trachea midline, Yes supple and Yes no JVD Resp Effort & Inspection: normal respiratory effort Auscultation: clear to auscultation bilaterally Cardio Jugular venous distension: no JVD Palpation: normal PMI Rate: regular rate Rhythm: regular rhythm Heart sounds: S1 normal heart sound present, S2 normal heart sound present, no click, no gallops, no murmurs and no rubs GI Auscultation: normal bowel sounds Skin General skin exam: no rashes or lesions noted Neuro General: patient oriented x3 and no focal motor deficits Extrem General: Yes no clubbing, cyanosis or edema Psych Appearance: grossly normal Office Procedures Cardiac Device Check Cardiac Device Check Details: Dual-chamber [facility] [employer] pacemaker in place. Programmed in DDDR at 60 beats per minute. Atrial pacing 93% of time. Ventricular pacing 11% of time. Battery life is at 3.2 years. No episodes of atrial fibrillation noted. Atrial ventricular sensing is adequate. Pacing lead impedance is stable. Atrial capture thresholds are stable and in auto capture mode. Ventricular capture thresholds are slightly elevated reprogrammed to enhance safety. [id number] Cardiac Device Check, pacemaker dual lead Procedure code (CPT) selection complete EKG Details: EKG shows atrially paced, ventricularly sensed rhythm with nonspecific T-wave changes [id number], Complete Assessment & Plan Assessment & Plan (1) Paroxysmal atrial fibrillation: Code(s): I48.0 - Paroxysmal atrial fibrillation Category: Medical Plan: Paroxysmal atrial fibrillation, highly symptomatic has done extremely well with rhythm control approach on current therapy. Continue current antiarrhythmic drug therapy with flecainide. Continue concomitant metoprolol therapy to reduce rapid atrial flutter. Continue full oral anticoagulation, currently on Eliquis 5 mg b.i.d.. Semi annual renal function test needs to be pursued. Avoidance of stimulants was discussed. Will continue monitor remotely by pacer telemetry. Follow up in the clinic in 6 months time with EKG. (2) Elevated brain natriuretic peptide (BNP) level: Code(s): R79.89 - Other specified abnormal findings of blood chemistry Category: Medical Plan: Elevated BNP without any overt signs of congestive heart failure. Continue rhythm control approach. Continue aggressive blood pressure control. Signs and symptoms of heart failure were discussed. No indication for diuretic therapy. (3) Cardiac pacemaker in situ: Comment: Dual-chamber [employer] pacemaker placed for transient AV block Code(s): Z95.0 - Presence of cardiac pacemaker Category: Medical Plan: Cardiac pacemaker in-situ for transient AV block but noted to have increased atrial pacing suggestive of sick sinus syndrome. At this point time will continue monitor remotely. Pacemaker is working well and reprogrammed for adequate functioning. Follow up in the clinic in 6 months time, sooner p.r.n.. Thank you for allowing me to partake in her care Coding Level of Care Code Est Pt Level 4 (84713) Complex EM visit Add On G2211 Diagnoses Paroxysmal atrial fibrillation I48.0 Elevated brain natriuretic peptide (BNP) level R79.89 Cardiac pacemaker in situ Z95.0 CPT Codes Cardiac Device Check - Cardiac Device 2: [id number] Cardiac Device Check, pacemaker dual lead ([id number]) EKG - CPT: 91608-Ypvdfjofumiatcyaw, Complete ([id number])
[2024-02-19 10:48] VITALS: BP 120/76; PULSE 60; BMI 26.7
== END 2024-02-19 11:10 | disposition home or self-care (01) ==
PROVIDERS: PCP Internal Medicine; Visit Provider Internal Medicine Cardiovascular Disease
DX: I48.0 Paroxysmal atrial fibrillation (principal); R79.89 Other specified abnormal findings of blood chemistry; Z95.0 Presence of cardiac pacemaker
CPT/HCPCS: 93010; 93280; 99214

== ENCOUNTER → 2024-02-19 10:45 | Outpatient (BNVA) | payer BC, SELFPAY | PROVIDERS: PCP Internal Medicine; Visit Provider Internal Medicine Cardiovascular Disease | DX: I48.0 Paroxysmal atrial fibrillation (principal); R79.89 Other specified abnormal findings of blood chemistry; Z79.01 Long term (current) use of anticoagulants; Z79.899 Other long term (current) drug therapy; Z45.018 Encounter for adjustment and management of other part of cardiac pacemaker | CPT/HCPCS: 93005; 93280 ==

== ENCOUNTER → 2024-05-07 23:59 | Outpatient (BNV) | payer BC, SELFPAY ==
--- NOTE | 2024-05-10 13:40 | A.OFFVIS_ITS ---
Intake Visit Reasons: Remote device check-St Negro Allergies amiodarone Adverse Reaction (Intermediate, Verified 12/24/23 14:12) visual problem dronedarone [From Multaq] Adverse Reaction (Intermediate, Verified 12/24/23 14:12) not effective [facility] Medical History Osteopenia of multiple sites Osteopenia Cardiac pacemaker in situ Paroxysmal atrial fibrillation Impacted cerumen of both ears Hypercholesterolemia Hypertension Current use of anticoagulant therapy Surgical History Eye globe prosthesis Social History Household Members: Spouse Housing: House Do you presently have visiting nurse or other home services: No Alcohol intake: never Patient Tobacco Use Status: Never used Tobacco e-Cigarette/Vaping Use: Never Used Second Hand Smoke Exposure: No service: No Current occupational status: retired Cognitive needs: No Hearing needs: No Vision needs: Yes Office Procedures Cardiac Device Check Cardiac Device Check Details: Remote pacemaker report generated 05/07/2024. Pacemaker function is adequate. No significant episodes of atrial fibrillation noted [id number] Cardiac Device Interrogation, pacemaker Procedure code (CPT) selection complete Assessment & Plan Assessment & Plan (1) Cardiac pacemaker in situ: Comment: Dual-chamber [employer] pacemaker placed for transient AV block Code(s): Z95.0 - Presence of cardiac pacemaker Category: Medical Plan: See above Coding Level of Care Code Procedure Only Diagnoses Cardiac pacemaker in situ Z95.0 CPT Codes Cardiac Device Check - Cardiac Device 12: [id number] Cardiac Device Interrogation, pacemaker ([id number])
== END ==
PROVIDERS: PCP Internal Medicine; Visit Provider Internal Medicine Cardiovascular Disease
DX: I44.39 Other atrioventricular block (principal); Z95.0 Presence of cardiac pacemaker
CPT/HCPCS: 93294

== ENCOUNTER 2024-06-19 09:52 | Outpatient (AMB) | payer MEDICARE, SELFPAY ==
[2024-06-19 10:30] VITALS: BP 130/68; PULSE 66; O2SAT 93; BMI 27.0
--- NOTE | 2024-06-19 10:30 | MHC.PC.OV ---
Vital Signs 06/19/24 10:30 Height 5 ft 6 in Weight 167 lb BMI 27.0 BP 130/68 Blood Pressure Location Lt brachial Position Sitting Pulse 66 Pulse Source Pulse Oximeter Pulse Oximetry (%) 93 Oxygen Delivery Method Room Air Intake Visit Reasons: 6 mo f/u Allergies amiodarone Adverse Reaction (Intermediate, Verified 06/19/24 10:31) visual problem dronedarone [From Multaq] Adverse Reaction (Intermediate, Verified 06/19/24 10:31) not effective Tobacco use date assessed: 12/24/23 Fall risk assessment: No Falls in past year Last assessed Fall Risk: 06/19/24 Dental Screening Dental Screen Date: 06/19/24 Did you have a dental visit in the last 12 months?: Yes Did you have a dental problem in the last 6 months where you did not have access to dental care?: No Was dental information given to patient?: Patient has dentist [facility] Medical History Osteopenia of multiple sites Osteopenia Cardiac pacemaker in situ Paroxysmal atrial fibrillation Impacted cerumen of both ears Hypercholesterolemia Hypertension Current use of anticoagulant therapy Surgical History Eye globe prosthesis Social History Household Members: Spouse Housing: House Do you presently have visiting nurse or other home services: No Alcohol intake: never Patient Tobacco Use Status: Never used Tobacco e-Cigarette/Vaping Use: Never Used Second Hand Smoke Exposure: No service: No Current occupational status: retired Cognitive needs: No Hearing needs: No Vision needs: Yes Questionnaire PHQ-9 Over the last 2 weeks, how often have you been bothered by any of the following problems? 1. Little interest or pleasure in doing things: several days 2. Feeling down, depressed, or hopeless: not at all 3. Trouble falling or staying asleep, or sleeping too much: not at all 4. Feeling tired or having little energy: several days 5. Poor appetite or overeating: not at all 6. Feeling bad about yourself - or that you are a failure or have let yourself or your family down: not at all 7. Trouble concentrating on things, such as reading the newspaper or watching television: not at all 8. Moving or speaking so slowly that other people could have noticed. Or the opposite - being so fidgety or restless that you have been moving around a lot more than usual: not at all 9. Thoughts that you would be better off or of hurting yourself in some way: not at all Total score: 2 Source: Developed by Drs. Ced York, Moriah Nugent, Kamlesh Bauer and colleagues, with an educational angie from [employer]. Thrive Questionnaire Date Thrive assessed: 06/19/24 I am a: Patient What is your living situation today?: I have a steady place to live Within the past 12 months, did the food you bought not last and you didn't have the money to get more?: Never true Within the past 12 months, did you worry whether your food would run out before you got money to buy more?: Never true Do you have trouble paying for medicines?: No Do you have trouble getting transportation to medical appointments?: No Do you have trouble paying your heating and electricity bill?: No Do you have trouble taking care of your child, family member or friend?: No Do you have trouble with day-to-day activities such as bathing, preparing meals, shopping, managing finances, etc.?: No Are you currently unemployed and looking for a job?: No Are you interested in more education?: No Please select the resources that you would like help with: None Currently or been in a relationship where the following occur: No concerns reported THRIVE Score: 0 AUDIT C Alcohol Use Questionnaire (AUDIT-C) 1. How often do you have a drink containing alcohol?: Never Total Score: 0 GREG-7 AMB Questionnaire GREG-7 Date GREG - 7 assessed: 06/19/24 Feeling nervous, anxious, or on edge: 0 = Not at all Not being able to stop or control worryin = Not at all Worrying too much about different things: 0 = Not at all Trouble relaxin = Not at all Being so restless that it is hard to sit still: 0 = Not at all Becoming easily annoyed or irritable: 0 = Not at all Feeling afraid as if something awful might happen: 0 = Not at all Total GREG-7 score (0-4 normal; 5-9 mild; 10-14 moderate; 15-21 severe): 0 Source: Developed by Drs. Ced York, Moriah Nugent, Kamlesh Bauer and colleagues, with an educational angie from [employer]. Physical exam (Primary Care) Vital Signs: Last Vital Signs Pulse 66 06/19/24 10:30 BP 130/68 06/19/24 10:30 Pulse Ox 93 06/19/24 10:30 Oxygen Delivery Method Room Air 06/19/24 10:30 BMI result Body Mass Index 27.0 Tobacco/Smoking Status: Tobacco use Status Tobacco use date assessed 12/24/23 06/19/24 10:35 Patient Tobacco Use Status Never used Tobacco 06/19/24 10:35 e-Cigarette/Vaping Use Never Used 06/19/24 10:35 PHQ-9: PHQ-9 Score PHQ-9: Total score 2 06/19/24 11:02 Thrive Assessment: Date of Thrive Assessment Date Thrive assessed 06/19/24 06/19/24 10:35 Currently or been in a relationship where the following occur: No concerns reported Const General: alert; No acute distress Eyes Conjunctivae: conjunctivae normal Resp Auscultation: clear to auscultation bilaterally Cardio Rate: regular rate Rhythm: regular rhythm GI Inspection: Yes normal to inspection Extrem General: Yes normal to inspection and No edema Coding Level of Care Code Est Pt Level 4 (48330) Complex EM visit Add On G2211 Diagnoses Sacroiliac joint pain M53.3 Paroxysmal atrial fibrillation I48.0 Essential hypertension I10 Hypertension type: essential hypertension Hypercholesterolemia E78.00 Cardiac pacemaker in situ Z95.0 Generalized anxiety disorder F41.1 Assessment & Plan Assessment & Plan (1) Sacroiliac joint pain: Code(s): M53.3 - Sacrococcygeal disorders, not elsewhere classified Category: Medical Plan: Patient did have some x-rays done showing arthritis of the sacroiliac joint (2) Paroxysmal atrial fibrillation: Code(s): I48.0 - Paroxysmal atrial fibrillation Category: Medical Plan: Continue with anticoagulation will need blood work twice a day year continue with flecainide continue to follow up with Cardiology (3) Hypertension: Code(s): I10 - Essential (primary) hypertension Category: Medical Qualifiers: Hypertension type: essential hypertension Qualified Code(s): I10 - Essential (primary) hypertension Plan: Continue with blood pressure medication. Decrease salt intake and exercise on metoprolol 25 mg twice a day (4) Hypercholesterolemia: Code(s): E78.00 - Pure hypercholesterolemia, unspecified Category: Medical Plan: Avoid fried foods, chicken skin, eggs, butter margarine, pastries and meat. Be it pork or beef they have a lot of cholesterol LDL goal of less than 100 and triglyceride of less than 150 on Zetia and atorvastatin (5) Cardiac pacemaker in situ: Comment: Dual-chamber [employer] Negro pacemaker placed for transient AV block Code(s): Z95.0 - Presence of cardiac pacemaker Category: Medical Plan: Continue to follow up with Cardiology (6) Generalized anxiety disorder: Code(s): F41.1 - Generalized anxiety disorder Category: Medical Plan: Stable Plan History of Present Illness The patient is a 79-year-old female presenting with follow-up care, focusing on her cardiac and musculoskeletal concerns. She has second-degree heart block and relies on a pacemaker for managing sick sinus syndrome, with her heart rhythm alternating between too fast and slow, corroborated by recent cardiology evaluations in February and April. She takes flecainide for rhythm control and metoprolol, a beta-simba known to decelerate heart rate. She is also continuing Eliquis to mitigate thromboembolic risk owing to her atrial fibrillation, with no clinical symptoms of heart failure despite elevated cardiac biomarkers. Her sacroiliac joint pain is attributed to documented moderate degenerative arthritis changes, with morning stiffness alleviating with continued activity, suggesting mechanical pain with an underlying arthritis pattern. Despite eliminating overt caffeine consumption, inquiries about dietary supplements revealed prior use of unnecessary fruit extract products emphasizing the patient's ongoing effort in weight management. Additionally, patient maintenance tasks like mammogram due and colonoscopy pending since 2014 were highlighted. Laboratories completed in February confirm stable electrolytes, renal and liver function, normal blood glucose, and lipid profile showing LDL at 88 mg/dL?all within desired limits?guided by Zetia and atorvastatin therapy. Health Maintenance - Follow-up on mammogram screening as patient is due. - Colonoscopy screening is overdue since last completed in 2014. - Bone density screening completed in October 2023. - Dietary recommendations: pursue diet focused on fruits, vegetables, and avoidance of high-calorie supplements. - Medication management for cholesterol with Zetia and atorvastatin targeting LDL <100 mg/dL and triglycerides <150 mg/dL. Social History - Reports drinking decaf tea to avoid caffeine. - Engages in some physical activity aiding sacroiliac joint pain, experiencing improved symptoms with ambulation. - Expresses concern about weight and previous use of caloric fruit extract supplements for energy and brain function enhancement. Review of Systems - Cardiac: Reports medication use without side effects, denies congestive heart failure symptoms. - Musculoskeletal: Reports sacroiliac joint pain most severe in the morning, improves with movement. Physical Exam Results - Labs: Normal blood count, electrolytes, liver function, renal function, glucose, LDL of 88 mg/dL, BNP of 109. - Echocardiogram (February): Ejection fraction 60-65%, impaired relaxation, mild mitral changes. - X-rays: Moderate degenerative changes in bilateral sacroiliac joints. Plan The patient will continue flecainide and metoprolol for atrial fibrillation rhythm control and Eliquis for anticoagulation. Monitoring through cardiology checks remains a priority, with recent echocardiogram findings supporting sustained management strategies. For sacroiliac joint pain, promoting physical activity and considering glucosamine chondroitin as advised may offer relief. Reiterating the importance of dietary changes away from high-calorie supplements will aid weight management. Bringing screenings up to date, including mammograms and colonoscopies, is prioritized for health maintenance. Following up with repeat lipid profiles and general health measures in future visits will ensure comprehensive management of her chronic conditions. Patient was informed and verbally consented to the use of an ambient scribe for clinic note documentation during this visit. Discussion Notes I reviewed the patient's cardiac and joint conditions with her, emphasizing the need for continued use of flecainide, metoprolol, and Eliquis for heart rhythm and atrial thrombosis prevention. I reiterated that her pacemaker plays a pivotal role in managing her existing sick sinus syndrome. We discussed the manifestations of osteoarthritis in her sacroiliac joints and considered glucosamine chondroitin for arthritis, respecting patient autonomy to cease if no benefits are seen. I advised against reliance on high-calorie supplements favoring a conventional diet rich in fruits and vegetables. We discussed the overdue mammogram and colonoscopy screenings, highlighting their importance in preventive care. I scheduled follow-ups to address these priorities and ensure regular monitoring of her chronic conditions. Patient Instructions - Take flecainide and metoprolol as prescribed for your heart rhythm. - Continue taking Eliquis to prevent blood clots. - Keep active to help with joint pain, but don't overdo it. - Finish your fruit extract supplement and don't buy more. - Eat a balanced diet with fruits and vegetables. - Plan for a mammogram soon and schedule a colonoscopy. - Follow up with your next cardiology check. - If you notice symptoms like swelling or sudden shortness of breath, call the office. - We'll check your blood work next month, so no current action is needed. - Contact the office if you have any new concerns or symptoms. Orders: Orders Lipid Panel 1 Month E78.00 - Pure hypercholesterolemia, unspecified, I48.0 - Paroxysmal atrial fibrillation Hemoglobin A1c 1 Month I48.0 - Paroxysmal atrial fibrillation Vitamin B12 and Folate 1 Month I48.0 - Paroxysmal atrial fibrillation Vitamin D 25-OH Total 1 Month I48.0 - Paroxysmal atrial fibrillation Thyroid Stimulating Hormone 1 Month I48.0 - Paroxysmal atrial fibrillation Free T4 (Free Thyroxine) 1 Month I48.0 - Paroxysmal atrial fibrillation Complete Blood Count Auto Diff 1 Month I48.0 - Paroxysmal atrial fibrillation Comprehensive Met. Panel 1 Month I48.0 - Paroxysmal atrial fibrillation B Type Natriuretic Peptide 1 Month I48.0 - Paroxysmal atrial fibrillation Magnesium 1 Month I48.0 - Paroxysmal atrial fibrillation
== END 2024-06-19 11:15 | disposition home or self-care (01) ==
LOC: HO.HMCH 09:53
PROVIDERS: PCP Internal Medicine; Visit Provider Internal Medicine
DX: M53.3 Sacrococcygeal disorders, not elsewhere classified (principal); I48.0 Paroxysmal atrial fibrillation; I10 Essential (primary) hypertension; E78.00 Pure hypercholesterolemia, unspecified; Z95.0 Presence of cardiac pacemaker; F41.1 Generalized anxiety disorder

== ENCOUNTER → 2024-06-19 09:52 | Outpatient (BNVA) | payer MEDICARE, SELFPAY | PROVIDERS: PCP Internal Medicine; Visit Provider Internal Medicine | DX: I10 Essential (primary) hypertension (principal); M53.3 Sacrococcygeal disorders, not elsewhere classified; I48.0 Paroxysmal atrial fibrillation; E78.00 Pure hypercholesterolemia, unspecified; F41.1 Generalized anxiety disorder; I49.5 Sick sinus syndrome; Z95.0 Presence of cardiac pacemaker; Z79.01 Long term (current) use of anticoagulants | CPT/HCPCS: 96127; 99212 ==

== ENCOUNTER 2024-08-06 08:13 | Outpatient (REF) | payer MEDICARE, SELFPAY ==
--- OUTSIDE RECORDS SUMMARY | 2024-08-06 08:27 | XMS_ITS | Clinical Summary ---
Author Organization [facility] Address [address] [place] [address] Phone Care Team Providers Care Valve Maker Name Role Phone Ger Granda MD Primary Care Provider [phone] Social History Tobacco Use Types Packs/Day Years Used Date Smoking Tobacco: Never Assessed Comments No Sex and Gender Information Value Date Recorded Sex Assigned at Not on file Legal Sex Female 9:45 PM EST Gender Identity Not on file Sexual Orientation Not on file Obstetrics History Para Term AB IAB SAB Ectopic Multiple Livin g Live Births 1 Last Filed Vital Signs Vital Sign Reading Time Taken Comments Blood Pressure - - Pulse - - Temperature - - Respiratory Rate - - Oxygen Saturation - - Inhaled Oxygen Concentration - - Weight 72.6 kg (160 lb) 12/25/2023 10:59 AM EST Height 167.6 cm (5' 6 ) 12/25/2023 10:59 AM EST Body Mass Index 25.82 12/25/2023 10:59 AM EST Plan of Treatment Health Maintenance Due Date Last Done Comments DTaP,Tdap,and Td Vaccines (1 - Tdap) 04/24/1966 Zoster Vaccines (1 of 2) 04/24/1997 Depression Screening 01/14/2022 Falls Risk Assessment 01/14/2022 Hepatitis C Screening 01/14/2022 Osteoporosis Screening (Bone Density Screening) 01/14/2022 Social Influencers of Health Screening 01/14/2022 Pneumococcal Vaccine: 50+ Years (2 of 2 - PCV) 03/30/2022 03/30/2021 RSV Immunization Adult Patients (1 - 1-dose 75+ series) 04/24/2022 COVID-19 Vaccine (2 - season) 2023 12/13/2020 Influenza Vaccine Completed 11/19/2023, , 12/02/2021, Additional history exists Breast Cancer Screening Discontinued 12/25/19, 12/20/2022, 12/01/2021, Additional history exists HIB Vaccines Aged Out No longer eligi ble based on patient's age to complete this topic HPV Vaccines Aged Out No longer eligi ble based on patient's age to complete this topic Hepatitis A Vaccines Aged Out No long er eligible based on patient's age to complete this topic Hepatitis B Vaccines Aged Out No long er eligible based on patient's age to complete this topic IPV Vaccines Aged Out No longer eligi ble based on patient's age to complete this topic MMR Vaccines Aged Out No longer eligi ble based on patient's age to complete this topic Meningococcal ACWY Vaccine Aged Out N o longer eligible based on patient's age to complete this topic Meningococcal B Vaccine Aged Out No l onger eligible based on patient's age to complete this topic RSV Immunization Patients Under 20 months Aged Out No longer eligible based on patient's age to complete this topic Varicella Vaccines Aged Out No longer eligible based on patient's age to complete this topic Procedures Procedure Name Priority Date/Time Associated Diagnosis Comments MG MAMMO DIGITAL SCREENING W FAISAL BILAT Routine 12/25/2023 11:16 AM EST Encounter for screening mammogram for breast cancer from Last 3 Months or Most Recently Relevant to Health Maintenance Results * MG Mammo Digital Screening w Faisal bilat (12/25/2023 11:16 AM EST) Anatomical Region Laterality Modality Breast Bilateral Mammography 12/25/2023 11:2 5 AM EST Impressions 12/25/2023 11:28 AM EST No mammographic evidence of malignancy. A negative mammogram in the presence of a clinically suspicious palpable abnormality does not preclude the possibility of malignancy or alter the indications for biopsy. PQRI CPT II 3342F Code 82789, 62801 PQRI 225 CPT II 7025F TISSUE DENSITY: There are scattered areas of fibroglandular density. (BI-RADS category B) IMPRESSION: Benign. BI-RADS CATEGORY: 2 - BENIGN RECOMMENDATION: Screening bilateral mammogram is recommended in 1 year. Mammo Location: [facility], [address] [place] [id number] -------- FINAL REPORT -------- Dictated By: Gigi Loyola Dictated Date: 12/25/2023 11:25 ET Assigned Physician: Gigi Loyola Reviewed and Electronically Signed By: Gigi Loyola Signed Date: 12/25/2023 11:28 ET Workstation ID: [id number] Transcribed By: Self Edit Transcribed Date: 12/25/2023 11:25 ET Narrative 12/25/2023 11:28 AM EST CLINICAL: The patient is a 78 years Female presenting for routine screening mammography. COMPARISON: Multiple prior studies most recently 12/20/2022 and most remotely 04/13/2016. TECHNIQUE: Full-field digital mammography of the breasts bilaterally consisting of tomosynthesis in MLO and CC projection is performed in the [employer] 2000-D unit. Computer aided detection utilizing the iCAD system was utilized. FINDINGS: The breasts are again seen to be composed of a combination of fatty and fibroglandular elements as also demonstrated on prior studies. Vascular and benign punctate calcifications are again seen. There is no suspicious cluster of microcalcifications, mass, or area of architectural distortion. There is no skin thickening or nipple retraction. Procedure Note Gigi Loyola MD - 12/25/2023 CLINICAL: The patient is a 78 years Female presenting for routinescreening mammography. COMPARISON: Multiple prior studies most recently 12/20/2022 and mostremotely 04/13/2016. TECHNIQUE: Full-field digital mammography of the breasts bilaterallyconsisting of tomosynthesis in MLO and CC projection is performed in the[employer] 2000-D unit. Computer aided detection utilizing the iCADsystem was utilized. FINDINGS: The breasts are again seen to be composed of a combination offatty and fibroglandular elements as also demonstrated on prior studies.Vascular and benign punctate calcifications are again seen. There is nosuspicious cluster of microcalcifications, mass, or area of architecturaldistortion. There is no skin thickening or nipple retraction. IMPRESSION: No mammographic evidence of malignancy. A negative mammogram in the presence of a clinically suspicious palpableabnormality does not preclude the possibility of malignancy or alter theindications for biopsy. PQRI CPT II 3342F Code 07728, 10746 PQRI 225 CPT II 7025F TISSUE DENSITY: There are scattered areas of fibroglandular density.(BI-RADS category B) IMPRESSION: Benign. BI-RADS CATEGORY: 2 - BENIGN RECOMMENDATION: Screening bilateral mammogram is recommended in 1 year. Mammo Location: [facility], [address] [place] [id number] -------- FINAL REPORT -------- Dictated By: Gigi Loyola Dictated Date: 12/25/2023 11:25 ET Assigned Physician: Gigi Loyola Reviewed and Electronically Signed By: Gigi Loyola Signed Date: 12/25/2023 11:28 ET Workstation ID: [id number] Transcribed By: Self Edit Transcribed Date: 12/25/2023 11:25 ET Ger Granda MD IMG BI PROCEDURES Final Result from Last 3 Months or Most Recently Relevant to Health Maintenance Insurance [facility] Care Teams Valve Maker Relationship Specialty Start Date End Date Ger Granda MD [address] [place] [address] [address] [facility] [place] [address] PCP - General Internal Medicine 12/02/23
[2024-08-06 08:32] LABS: MANUAL DIFF FLAG NO
[2024-08-06 09:08] LABS: Basophils Percent Auto 0.7 % (0-2); Eosinophils Absolute Auto 0.1 X10*3/uL (0.0-0.4); Eosinophils Percent Auto 0.8 % (0-4); Hematocrit 40.1 % (37.0-47.0); Hemoglobin 13.3 g/dl (12.0-16.0); Imm Gran Abs Auto 0.02 X10*3/uL (0.00-0.03); Imm Gran Pct Auto 0.3 % (0.0-0.4); Lymphocytes Absolute Auto 1.7 X10*3/uL (1.2-4.9); Lymphocytes Percent Auto 27.4 % (20-40); Mean Corpuscular HGB Conc 33.2 g/dl (31.0-35.0); Mean Corpuscular Hemoglobin 31.9 pg (27.0-33.0); Mean Corpuscular Volume 96.2 fL (80.0-98.0); Mean Platelet Volume 10.7 fL (9.4-12.3); Monocytes Absolute Auto 0.4 X10*3/uL (0.1-1.2); Monocytes Percent Auto 7.2 % (2-11); Neutrophils Absolute Auto 3.9 x10*3/uL (2.0-8.3); Neutrophils Percent Auto 63.6 % (45-73); Platelet Count 248 X10*3/uL (160-400); Red Blood Count 4.17 X10*6/uL (4.20-5.50); Red Cell Distribution Width 12.2 % (11.0-16.0); White Blood Count 6.1 X10*3/uL (4.8-10.8)
[2024-08-06 09:17] LABS: Estimated Average Glucose 120 mg/dL; Hemoglobin A1c % 5.8 % (<6.0)
[2024-08-06 09:44] LABS: B Type Natriuretic Peptide 97 pg/mL (<100)
[2024-08-06 09:57] LABS: Alanine Aminotransferase 31 U/L (0-31); Albumin Level 4.4 g/dL (3.5-5.0); Alkaline Phosphatase 88 U/L (39-117); Anion Gap 11 (12-20); Aspartate Amino Transferase 29 U/L (5-31); Bilirubin Total 0.3 mg/dL (0.0-1.0); Blood Urea Nitrogen 27 mg/dL (9-16); Calcium 9.4 mg/dL (8.4-10.2); Carbon Dioxide 28 mmol/L (22-29); Chloride 107 mmol/L (96-108); Cholesterol 163 mg/dL (<200); Estimated Glomerular Filt Rate 60; Glucose Random 88 mg/dL (60-115); HDL Cholesterol 66 mg/dL (>40); LDL Cholesterol Calculated 85 mg/dL (<100); Magnesium 2.3 mg/dL (1.6-2.6); Potassium 4.4 mmol/L (3.3-5.1); Sodium 142 mmol/L (135-145); Total Protein 6.8 g/dL (6.5-8.0); Triglycerides 62 mg/dL (<150)
[2024-08-06 10:18] LABS: Free T4 (Free Thyroxine) 0.93 ng/dL (0.71-1.85); Thyroid Stimulating Hormone 2.06 uIU/mL (0.32-4.0); Vitamin D 25-OH Total 36.3 ng/mL (>30)
[2024-08-06 10:45] LABS: Folate 12.5 ng/mL (> or = 4.0); Vitamin B12 475 pg/mL (200-900)
== END 2024-08-06 08:14 | disposition home or self-care (01) ==
LOC: HO.LAB 08:13
PROVIDERS: PCP Internal Medicine; Visit Provider Internal Medicine
DX: E78.00 Pure hypercholesterolemia, unspecified (principal); I48.0 Paroxysmal atrial fibrillation
CPT/HCPCS: 36415; 80053; 80061; 82306; 82607; 82746; 83036; 83735; 83880; 84439; 84443; 85025

== ENCOUNTER → 2024-08-06 23:59 | Outpatient (BNV) | payer MEDICARE, SELFPAY ==
--- NOTE | 2024-08-11 11:58 | MHC.OFFVIS ---
Intake Visit Reasons: Remote device check- [facility] Negro Allergies amiodarone Adverse Reaction (Intermediate, Verified 06/19/24 10:31) visual problem dronedarone (From Multaq) Adverse Reaction (Intermediate, Verified 06/19/24 10:31) not effective [facility] Medical History Osteopenia of multiple sites Osteopenia Cardiac pacemaker in situ Paroxysmal atrial fibrillation Impacted cerumen of both ears Hypercholesterolemia Hypertension Current use of anticoagulant therapy Surgical History Eye globe prosthesis Social History Household Members: Spouse Housing: House Do you presently have visiting nurse or other home services: No Alcohol intake: never Patient Tobacco Use Status: Never used Tobacco e-Cigarette/Vaping Use: Never Used Second Hand Smoke Exposure: No service: No Current occupational status: retired Cognitive needs: No Hearing needs: No Vision needs: Yes Office Procedures Cardiac Device Check Cardiac Device Check Details: Remote pacemaker report generated 08/06/2024. Pacemaker function is adequate [id number] Cardiac Device Interrogation, pacemaker Procedure code (CPT) selection complete Assessment & Plan Assessment & Plan (1) Cardiac pacemaker in situ: Comment: Dual-chamber [employer] pacemaker placed for transient AV block Code(s): Z95.0 - Presence of cardiac pacemaker Category: Medical Plan: See above Coding Level of Care Code Procedure Only Diagnoses Cardiac pacemaker in situ Z95.0 CPT Codes Cardiac Device Check - Cardiac Device 12: [id number] Cardiac Device Interrogation, pacemaker ([id number])
== END ==
PROVIDERS: PCP Internal Medicine; Visit Provider Internal Medicine Cardiovascular Disease
DX: I44.39 Other atrioventricular block (principal); Z95.0 Presence of cardiac pacemaker
CPT/HCPCS: 93294

== ENCOUNTER 2024-08-27 09:37 | Outpatient (AMB) | payer BC, SELFPAY ==
--- NOTE | 2024-08-27 09:42 | MHC.OFFVIS ---
Vital Signs 08/27/24 09:43 Height 5 ft 6 in Weight 163 lb 2.273 oz BMI 26.3 BP 110/70 Blood Pressure Location Lt brachial Position Sitting Pulse 60 Intake Visit Reasons: 6m w EKG Intake Note: 6 month follow-up with ekg and St Negro check feeling good Pe Electrical Engineer Required: No Allergies amiodarone Adverse Reaction (Intermediate, Verified 06/19/24 10:31) visual problem dronedarone (From Multaq) Adverse Reaction (Intermediate, Verified 06/19/24 10:31) not effective Medication List - Last Reconciled 08/27/24 by Sandeep Cid MD apixaban (Eliquis) 5 mg PO BID 90 days atorvastatin 80 mg PO DAILY ezetimibe 10 mg PO DAILY flecainide 150 mg PO Q12H metoprolol tartrate 25 mg PO BID HPI Comments Details: Sivan comes for follow-up. She has been doing very well. She has had no episodes of atrial fibrillation. She is functional and active. She denied any symptoms of exertional chest pain or shortness of breath. No heart failure symptoms. Takes all her medications. No bleeding issues or neurologic events. [facility] Medical History Osteopenia of multiple sites Osteopenia Cardiac pacemaker in situ Paroxysmal atrial fibrillation Impacted cerumen of both ears Hypercholesterolemia Hypertension Current use of anticoagulant therapy Surgical History Eye globe prosthesis Social History Household Members: Spouse Housing: House Do you presently have visiting nurse or other home services: No Alcohol intake: never Patient Tobacco Use Status: Never used Tobacco e-Cigarette/Vaping Use: Never Used Second Hand Smoke Exposure: No service: No Current occupational status: retired Cognitive needs: No Hearing needs: No Vision needs: Yes Review of Systems Const Denies chills, Denies fatigue, Denies fever(s), Denies frequent falls, Denies weakness, Denies weight gain and Denies weight loss ENT Denies dizziness Card Denies chest pain, Denies leg edema, Denies lightheadedness, Denies palpitations, Denies dyspnea, Denies dyspnea on exertion, Denies orthopnea and Denies other (loss of consciousness) Resp Denies cough, Denies dyspnea and Denies dyspnea on exertion GI Denies hematochezia and Denies change in stool character Musc Denies abnormal gait, Denies muscle weakness, Denies numbness, Denies radiating pain into limb and Denies tingling Neuro Denies abnormal gait, Denies dizziness, Denies frequent falls, Denies numbness, Denies tingling and Denies weakness Endo Denies fatigue and Denies palpitations Physical Exam Vital Signs: Last Vital Signs Pulse 60 08/27/24 09:43 BP 110/70 08/27/24 09:43 BMI result Body Mass Index 26.3 Const General: cooperative, comfortable, no acute distress, alert, awake, anxious and well groomed Nutritional Appearance: average body habitus Orientation/consciousness: patient oriented x3 Limitations: no limitations Neck Neck: Yes trachea midline, Yes supple and Yes no JVD Resp Effort & Inspection: normal respiratory effort Auscultation: clear to auscultation bilaterally Cardio Jugular venous distension: no JVD Palpation: normal PMI Rate: regular rate Rhythm: regular rhythm Heart sounds: S1 normal heart sound present, S2 normal heart sound present, no click, no gallops, no murmurs and no rubs GI Auscultation: normal bowel sounds Skin General skin exam: no rashes or lesions noted Neuro General: patient oriented x3 and no focal motor deficits Extrem General: Yes no clubbing, cyanosis or edema Psych Appearance: grossly normal Office Procedures Cardiac Device Check Cardiac Device Check Details: Dual-chamber Saint Negro pacemaker in place. Programmed in DDDR at 60 beats per minute. Atrial pacing 96% of time. Ventricular pacing 24% time. I would increase both the sensed stent paced AV interval to reduce ventricular pacing. Atrial capture thresholds adequate and in auto capture mode. Ventricular pacing thresholds are improved and reprogrammed to enhance battery life. Atrial ventricular sensing is adequate. Pacing lead impedance is stable. Battery life is 2.7 years 10862-SN Cardiac Device Check, pacemaker dual lead Procedure code (CPT) selection complete EKG Details: EKG shows atrially paced, ventricularly sensed rhythm with incomplete right bundle-branch block with nonspecific T-wave changes with normal QT interval 17923-Khovqcahxuvwyhxcs, Complete Assessment & Plan Assessment & Plan (1) Cardiac pacemaker in situ: Comment: Dual-chamber Saint Negro pacemaker placed for transient AV block Code(s): Z95.0 - Presence of cardiac pacemaker Category: Medical Plan: Cardiac pacemaker in-situ, working well for sick sinus syndrome. Patient is pacer dependent in the atrium most of the time. Will continue monitor by remote telemetry. Advised to call me with any new symptoms. Will try to also monitor ventricular pacing. (2) Paroxysmal atrial fibrillation: Code(s): I48.0 - Paroxysmal atrial fibrillation Category: Medical Plan: Paroxysmal atrial fibrillation currently suppressed on flecainide therapy. She has done extremely well with rhythm control approach will continue pursue rhythm control approach. Has tolerated flecainide therapy well. Will need to watch for ventricular pacing level. If she has increasing ventricular pacing dependence may need to switch her to an alternative antiarrhythmic drug therapy. Continue full oral anticoagulation, currently on Eliquis 5 mg b.i.d.. Semi annual renal function test and annual CBC should be pursued. Importance of Eliquis therapy was discussed. She understands. Avoidance of stimulants was discussed. (3) Hypertension: Code(s): I10 - Essential (primary) hypertension Category: Medical Qualifiers: Hypertension type: essential hypertension Qualified Code(s): I10 - Essential (primary) hypertension Plan: Hypertension which is currently well optimized advised to monitor blood pressure at home maintain a log. Goal blood pressure less than 130/84. Low-salt diet was discussed. Continue current lipid therapy with target goal LDL less than 70 mg/dL. Encouraged lifestyle modification regular physical activity. (4) Elevated brain natriuretic peptide (BNP) level: Code(s): R79.89 - Other specified abnormal findings of blood chemistry Category: Medical Plan: Patient in the past had mildly elevated BNP level with no evidence of congestive heart failure. Has done well with rhythm control approach will continue pursue rhythm control approach. Will follow-up BNP in 6 months time. Will follow up in the clinic in 6 months, sooner p.r.n.. Thank you for allowing me to partake in her care Coding Level of Care Code Est Pt Level 4 (97207) Complex EM visit Add On G2211 Diagnoses Cardiac pacemaker in situ Z95.0 Paroxysmal atrial fibrillation I48.0 Essential hypertension I10 Hypertension type: essential hypertension Elevated brain natriuretic peptide (BNP) level R79.89 CPT Codes Cardiac Device Check - Cardiac Device 2: 62634-EL Cardiac Device Check, pacemaker dual lead ([id number]) EKG - CPT: 33003-Swzxpjppdrdjykquh, Complete ([id number])
[2024-08-27 09:43] VITALS: BP 110/70; PULSE 60; BMI 26.3
--- OUTSIDE RECORDS SUMMARY | 2024-08-27 10:11 | XMS_ITS | Clinical Summary ---
Author Organization [facility] Address [address] [place] [address] Phone Care Team Providers Care Director Biology Name Role Phone Ger Granda MD Primary Care Provider [phone] Social History Tobacco Use Types Packs/Day Years [...] (2 - season) 2023 12/13/2020 Influenza Vaccine (#1) 2024 4, 12/28/2022, 12/02/2021, Additional history exists Breast Cancer Screening Discontinued 12/25/19 24, 12/20/2022, 12/01/2021, Additional history exists HIB Vaccines [...] for biopsy. PQRI CPT II 3342F Code 77385, 94297 PQRI 225 CPT II 7025F TISSUE DENSITY: There are scattered areas of fibroglandular density. (BI-RADS category B) IMPRESSION: Benign. BI-RADS CATEGORY: 2 - BENIGN RECOMMENDATION: Screening bilateral mammogram is recommended in 1 year. Mammo Location: [facility], [address] [place] [id number] -------- FINAL REPORT -------- Dictated By: Gigi Loyola Dictated Date: 12/25/2023 11:25 ET Assigned Physician: Gigi Loyola Reviewed and Electronically Signed By: Gigi Loyola Signed Date: 12/25/2023 11:28 ET Workstation ID: [id number] Transcribed By: Self Edit Transcribed Date: 12/25/2023 11:25 ET Narrative 12/25/2023 11:28 AM EST CLINICAL: The patient is a 78 years Female presenting for routine screening mammography. COMPARISON: Multiple prior studies most recently 12/20/2022 and most remotely 04/13/2016. TECHNIQUE: Full-field digital mammography of the breasts bilaterally consisting of tomosynthesis in MLO and CC projection is performed in the Keystokographe 2000-D unit. Computer aided detection utilizing the EventWithD system was utilized. FINDINGS: The breasts are [...] MLO and CC projection is performed in theKeystokographe 2000-D unit. Computer aided detection utilizing the [...] for biopsy. PQRI CPT II 3342F Code 20101, 85149 PQRI 225 CPT II 7025F TISSUE DENSITY: There are scattered areas of fibroglandular density.(BI-RADS category B) IMPRESSION: Benign. BI-RADS CATEGORY: 2 - BENIGN RECOMMENDATION: Screening bilateral mammogram is recommended in 1 year. Mammo Location: [facility], [address] [place] [id number] -------- FINAL REPORT -------- Dictated By: Giig Loyola Dictated Date: 12/25/2023 11:25 ET Assigned Physician: Gigi Loyola Reviewed and Electronically Signed By: Gigi Loyola Signed Date: 12/25/2023 11:28 ET Workstation ID: [id number] Transcribed By: Self Edit Transcribed Date: 12/25/2023 11:25 ET Gre Granda MD IMG BI PROCEDURES Final Result from Last 3 Months or Most Recently Relevant to Health Maintenance Insurance [facility] Care Teams Director Biology Relationship Specialty Start Date End Date Ger Granda MD [address] [place] [address] [address] [facility] [place] [address] PCP - General Internal Medicine 12/02/23
--- OUTSIDE RECORDS SUMMARY | 2024-08-27 10:11 | XMS_ITS | Patient Health Record ---
Author Organization [facility] Address [address] [place] [address] Care Team Providers Care Program Consultant Name Role Phone Meaagn PAREDES, Zuly Primary Care Provider UnavailCed Raygoza Unavailable [phone] Reason For Referral No Information Medications Medication SIG (Take, Route, Frequency, Duration) Notes Start Date End Date Status Warfarin Sodium 6 MG Orally Once a day Active Atorvastatin Calcium 80 MG 1 tablet Oral ly Once a day Active Aspir-81 81 MG Orally Activ e Flecainide Acetate 100 MG Orally Active Colyte w Flavor Packs 240 GM as directed Orally as directed for 1 day(s) 02/25/2014 Active Problems Problem Type SNOMED Code ICD Code Onset Dates Problem Status W/U Status Risk Notes Problem Constipation (44148838) Unspecified constipation (564.00) Active confirmed Problem Blood in stool (446565579) Blood in stool (578.1) Active confirmed Problem Constipation (91170241) Constipation (564.00) Active confirmed Problem Screening for colon cancer (371071439) Screening for colon cancer (V76.51) Active confirmed Problem Long-term current use of anticoagulant (724920357) Long-term (current) use of anticoagulants (V58.61) Active confirmed Plan Of Treatment Future Test Test Name Order Date COLONOSCOPY 02/24/2014 Next Appt Details Provider Name:Ced Segal , 10/09/2024 10:20:00 AM, [address], [address], [place], [address], Insurance Providers Payer Name Payer Address Payer Phone Subscriber Number Group Number Insured Name Patient Relationship to Insured Coverage Start Date Coverage End Date [facility] [address] [place], [place] [id number] BO BERRY Self - patient is the insured MEDICARE OF [place] [address] [place] [address] [id number] BO BERRY Self - patient is the insured Medical (General) History Medical History History ICD Code Atrial fibrillation Hyperlipidemia Denies DC,DM,CVA,Lung disease,renal dise ase Negtaive screening colonosco py in 06/2003 except for a hyperplastic polyp, sigmoid diverticulosis, and internal hemorrhoids Surgical History Surgery Date(Month/Year) eye surgery
== END 2024-08-27 10:12 | disposition home or self-care (01) ==
LOC: HO.HCS 09:38
PROVIDERS: PCP Internal Medicine; Visit Provider Internal Medicine Cardiovascular Disease
DX: I48.0 Paroxysmal atrial fibrillation (principal); Z95.0 Presence of cardiac pacemaker; I10 Essential (primary) hypertension; R79.89 Other specified abnormal findings of blood chemistry
CPT/HCPCS: 93010; 93280; 99214

== ENCOUNTER → 2024-08-27 09:37 | Outpatient (BNVA) | payer BC, SELFPAY | PROVIDERS: PCP Internal Medicine; Visit Provider Internal Medicine Cardiovascular Disease | DX: Z45.018 Encounter for adjustment and management of other part of cardiac pacemaker (principal); I48.0 Paroxysmal atrial fibrillation; I10 Essential (primary) hypertension; R79.89 Other specified abnormal findings of blood chemistry; I45.19 Other right bundle-branch block; R94.31 Abnormal electrocardiogram [ECG] [EKG] | CPT/HCPCS: 93005; 93280 ==

== ENCOUNTER → 2024-11-05 23:59 | Outpatient (BNV) | payer BC, SELFPAY ==
--- NOTE | 2024-11-17 09:32 | A.OFFVIS_ITS ---
Intake Visit Reasons: Remote device check- St Negro Allergies amiodarone Adverse Reaction (Intermediate, Verified 06/19/24 10:31) visual problem dronedarone (From Multaq) Adverse Reaction (Intermediate, Verified 06/19/24 10:31) not effective [facility] Medical History Osteopenia of multiple sites Osteopenia Cardiac pacemaker in situ Paroxysmal atrial fibrillation Impacted cerumen of both ears Hypercholesterolemia Hypertension Current use of anticoagulant therapy Surgical History Eye globe prosthesis Social History Household Members: Spouse Housing: House Do you presently have visiting nurse or other home services: No Alcohol intake: never Patient Tobacco Use Status: Never used Tobacco e-Cigarette/Vaping Use: Never Used Second Hand Smoke Exposure: No service: No Current occupational status: retired Cognitive needs: No Hearing needs: No Vision needs: Yes Office Procedures Cardiac Device Check Cardiac Device Check Details: Remote pacemaker report generated 11/05/2024. Pacemaker function is adequate. Minimal burden of atrial fibrillation 31889-Odxxiy Cardiac Device Interrogation, pacemaker Procedure code (CPT) selection complete Assessment & Plan Assessment & Plan (1) Cardiac pacemaker in situ: Comment: Dual-chamber Saint Negro pacemaker placed for transient AV block Code(s): Z95.0 - Presence of cardiac pacemaker Category: Medical Plan: See above Coding Level of Care Code Procedure Only Diagnoses Cardiac pacemaker in situ Z95.0 CPT Codes Cardiac Device Check - Cardiac Device 12: 90064-Unmtjz Cardiac Device Interrogation, pacemaker ([id number])
== END ==
PROVIDERS: PCP Internal Medicine; Visit Provider Internal Medicine Cardiovascular Disease
DX: I48.91 Unspecified atrial fibrillation (principal); Z95.0 Presence of cardiac pacemaker
CPT/HCPCS: 93294

== ENCOUNTER 2025-01-19 09:51 | Day surgery (SDC) | payer BC, SELFPAY ==
[2025-01-15 15:22] VITALS: BMI 26.4
--- NOTE | 2025-01-16 12:35 | P.CONAN_ITS ---
Documented by User: Ana Butler NP 01/16/25 12:46 HPI - Anesthesia Eval Consult details Narrative: 79yo F for Colonoscopy Follows [facility] Cardiology for SSS with pacer, afib on eliquis. Stable at 08/2024 office visit with 6 month f/u. Remote pacer monitoring [facility] Active Problems Active Problems: All Active Problems Sacroiliac joint pain (Acute) Dizziness (Acute) Impacted cerumen of both ears (Acute) Acute pharyngitis (Acute) Age-related osteoporosis without current pathological fracture (Acute) Generalized anxiety disorder (Acute) Cardiac pacemaker in situ (Acute) Anemia (Acute) Hypercholesterolemia (Acute) Hypertension (Acute) Paroxysmal atrial fibrillation (Acute) Visit for wound check (Acute) Second degree atrioventricular block (Acute) Elevated brain natriuretic peptide (BNP) level (Acute) Past Medical History Medical History Osteopenia of multiple sites Osteopenia Cardiac pacemaker in situ Paroxysmal atrial fibrillation Impacted cerumen of both ears Hypercholesterolemia Hypertension Current use of anticoagulant therapy Surgical History Surgical History H/O colonoscopy Eye globe prosthesis Social History Social History Household Members: Spouse Housing: House Do you presently have visiting nurse or other home services: No Alcohol intake: never Patient Tobacco Use Status: Never used Tobacco e-Cigarette/Vaping Use: Never Used Second Hand Smoke Exposure: No Use of substances other than those prescribed or required for medical reasons: No Are you DNR?: No Advance Directives: No Advance Directives Information Provided: Yes : No service: No Current occupational status: retired Cognitive needs: No Hearing needs: No Vision needs: Yes Meds Allergies Allergy/AdvReac Type Severity Reaction Status Date / Time amiodarone AdvReac Intermediate visual Verified 06/19/24 10:31 problem dronedarone (From Multaq) AdvReac Intermediate not Verified 06/19/24 10:31 effective Exam Height,Weight and Vital Signs: Height 5 ft 6 in Weight 74.208 kg Pertinent Lab Results Pertinent Lab Results: Laboratory Tests 08/06/24 08:30 WBC 6.1 Hgb 13.3 Hct 40.1 Plt Count 248 Sodium 142 Potassium 4.4 Chloride 107 Carbon Dioxide 28 BUN 27 H Creatinine 0.91 Narrative Narrative: Cardiac Device Check 08/2024 Details: Dual-chamber Saint Negro pacemaker in place. Programmed in DDDR at 60 beats per minute. Atrial pacing 96% of time. Ventricular pacing 24% time. I would increase both the sensed stent paced AV interval to reduce ventricular pacing. Atrial capture thresholds adequate and in auto capture mode. Ventricular pacing thresholds are improved and reprogrammed to enhance battery life. Atrial ventricular sensing is adequate. Pacing lead impedance is stable. Battery life is 2.7 years EKG 08/2024 Details: EKG shows atrially paced, ventricularly sensed rhythm with incomplete right bundle-branch block with nonspecific T-wave changes with normal QT interval Assessment and Plan Assessment Anesthesia Assessment: Chart Reviewed Documented by User: Leonard Salazar MD 01/19/25 11:26 [facility] Past Medical History Medical History Osteopenia of multiple sites Osteopenia Cardiac pacemaker in situ Paroxysmal atrial fibrillation Impacted cerumen of both ears Hypercholesterolemia Hypertension Current use of anticoagulant therapy Cognitive capacity: good Functional capacity: independent ambulation Family History Family history of problems with anesthesia: No Surgical History Surgical History H/O colonoscopy Eye globe prosthesis History of Problems with Anesthesia: No Social History Social History Household Members: Spouse Housing: House Do you presently have visiting nurse or other home services: No Alcohol intake: never Patient Tobacco Use Status: Never used Tobacco e-Cigarette/Vaping Use: Never Used Second Hand Smoke Exposure: No Use of substances other than those prescribed or required for medical reasons: No Are you DNR?: No Advance Directives: No Advance Directives Information Provided: Yes : No service: No Current occupational status: retired Cognitive needs: No Hearing needs: No Vision needs: Yes Meds Allergies Allergy/AdvReac Type Severity Reaction Status Date / Time amiodarone AdvReac Intermediate visual Verified 06/19/24 10:31 problem dronedarone (From Multaq) AdvReac Intermediate not Verified 06/19/24 10:31 effective Exam Exam Date and Time: 12/20/2024 Airway Mallampati Class: II TM Dist: >3cm Neck ROM: Full Heart: rrr Lungs: normal Assessment and Plan Assessment Anesthesia Assessment: Anesthesia Plan Discussed Final Anesthetic Review Family History of Problems with Anesthesia: No History of Problems with Anesthesia: No NPO: Yes ASA Class: II Final Preanesthetic Review: No Changes in Pt Med Stat, Consent Obtained/Reviewed and Anes Risks/Benef Reviewed Patient Risk: Low Procedure Risk: Low Anesthetic Plan Anesthetic Plan: MAC: Disposition: Standard PACU
[2025-01-19 10:34] VITALS: BMI 26.2
[2025-01-19 10:35] VITALS: BP 120/53; PULSE 60; RESP 16; TEMP 36.8; O2SAT 99
[2025-01-19] MEDS: Lactated Ringers 1,000 ML 100 ML IVCONT (10:52)
[2025-01-19 12:26] VITALS: BP 120/80; PULSE 75; RESP 16; TEMP 36.1; O2SAT 95
--- NOTE | 2025-01-19 12:28 | PM.OP ---
Brief Operative Note Date of Service: 01/19/25 Pre-op diagnosis: Screening Post-op diagnosis: other (Polyp) Procedure: Colonoscopy to the cecum and TI with bx/removal of polyp Surgeon: Ced Segal MD Anesthesia: MAC Was an Manufacturing Scheduler used for this Procedure?: No Estimated blood loss (mL): 2.0 Pathology: other (A. Polyp at 60cm) Condition: stable Disposition: PACU
[2025-01-19 12:41] VITALS: BP 109/67; PULSE 60; RESP 15; TEMP 36.2; O2SAT 99
--- NOTE | 2025-01-19 13:01 | OP_ITS ---
DATE OF SERVICE: 01/19/2025 SURGEON: Ced Segal MD INDICATIONS: The patient presents for evaluation of colorectal cancer screening. Full consent has been obtained from her for this, including risks of bleeding and perforation. PREOPERATIVE DIAGNOSIS: Colorectal cancer screening. POSTOPERATIVE DIAGNOSIS: PROCEDURE PERFORMED: Colonoscopy to the cecum and terminal ileum with biopsy and removal of polyp. ESTIMATED BLOOD LOSS: COMPLICATIONS: ANESTHESIA: Medication used, monitored anesthesia care. ASSISTANTS: SPECIMENS: POSTOPERATIVE DIAGNOSES: Colorectal cancer screening, small colon polyp, diverticulosis, internal hemorrhoids. DESCRIPTION OF PROCEDURE: The patient was placed in the left lateral decubitus position. The digital rectal exam revealed no abnormalities. The Olympus video pediatric colonoscope was entered into the rectum and advanced to the cecum with assistance of abdominal wall pressure. Once in the cecum, I did identify normal-appearing cecal pouch with appendiceal orifice and a normal-appearing ileocecal valve. The terminal ileum was cannulated and appeared normal. Scope was withdrawn back in the colon. The entire cecum and ileocecal valve appeared normal. The scope was then slowly withdrawn assessing all mucosal surfaces carefully. Preparation was excellent. At 60 cm was a flat, approximately 4 mm polyp, which was biopsied and completely removed with a cold biopsy forceps. I did not visualize any other polyps, colitis, nor angiodysplasia. There was a mild amount of sigmoid diverticulosis. In the rectum, scope was retroflexed visualizing internal hemorrhoids, but no other pathology. The rectal mucosa appeared normal. Scope was straightened and withdrawn from the patient. She tolerated the procedure well and was returned to the recovery area in stable condition. IMPRESSION: 1. Small colon polyp. 2. Diverticulosis. 3. Internal hemorrhoids. PLAN: The results of the biopsy will be checked. Given her age and these minimal findings, I do not think she would need any further screening colonoscopies. She was advised to resume her Eliquis in 48 hours. She will otherwise see me as needed. MD ALLEN Concepcion/NAZ / [phone] MTDShelby
== END 2025-01-19 13:59 | disposition home or self-care (01) ==
PROVIDERS: PCP Internal Medicine; Visit Provider Internal Medicine
PROC: 0DJD8ZZ Inspection of Lower Intestinal Tract, Via Natural or Artificial Opening Endoscopic (ICD-10-PCS; CPT 45378; principal; 2025-01-19 11:40)
DX: Z12.11 Encounter for screening for malignant neoplasm of colon (principal); K57.30 Diverticulosis of large intestine without perforation or abscess without bleeding; K64.8 Other hemorrhoids; D12.5 Benign neoplasm of sigmoid colon
CPT/HCPCS: 45380; 88305; J2003; J2704

== ENCOUNTER 2025-01-27 11:28 | Outpatient (AMB) | payer BC, SELFPAY ==
--- OUTSIDE RECORDS SUMMARY | 2025-01-19 06:40 | XMS_ITS ---
Author Organization [facility] Address [address] [place] [address] Care Team Providers Care Transition Teacher Name Role Phone Ger Granda MD Primary Care Provider Ced Rendon [phone] REASON FOR VISIT screening Encounters Encounter Location Date Provider Diagnosis [facility] Outpatient [address] [place], [place] [phone] 01/19/2025 Ced Segal Plan Of Treatment No Information Progress Notes * MAGDALENA BERRYINEDOB: [birth year] (79 yo F)Acc No.[id number]:01/19/2025 COLON WITH MAC Patient: BO ANDRADE Provider: Forrest Segal MD :1945 A ge:79 Y S ex:Female Date:01/19/2025 Address:[address] [place], [place] [phone] Pcp:Ger Granda MD Subjective: * Chief Complaints: * S creening Billing Information: * Procedure Codes: * The named appointment provid er may or may not be the originator of this progress note, and it is not deemed complete until electronically signed by the appointment provider. Sign off status: Pending * Provider: Forrest Segal MD Date: 03/22/2024 Generated for Kvng ng/Faangelg/eTransmitting on: 03/30/2024 03:10 PM EST
--- OUTSIDE RECORDS SUMMARY | 2025-01-26 09:56 | XMS_ITS | Encounter Summary ---
Author Organization [facility] Address [address] [place] [address] Care Team Providers Care Raiser Helper Name Role Phone Ger Granda MD Primary Care Provider [phone] Reason for Referral * Imaging (Routine) - Pending Review Specialty Diagnoses / Procedures Referred By Francois burton Referred To Contact Radiology Diagnoses Encounter for screening mammogram for breast cancer Procedures MG Mammo Digital Screening w Faisal bilat Spp, Self Referral [facility] Referral ID Status Reason Start Date Expiration Date V isits Requested Visits Authorized [id number] Pending Review 11/18/2024 11/18/2025 1 1 * Imaging (Routine) - Pending Review Specialty Diagnoses / Procedures Referred By Contac t Referred To Contact Radiology Diagnoses Encounter for screening mammogram for breast cancer Procedures MG Mammo Digital Screening w Faisal bilat Spp, Self Referral [facility] Referral ID Status Reason Start Date Expiration Date V isits Requested Visits Authorized [id number] Pending Review 11/18/2024 11/18/2025 1 1 Reason for Visit * Imaging (Routine) - Pending Review Specialty Diagnoses / Procedures Referred By Contac t Referred To Contact Radiology Diagnoses Encounter for screening mammogram for breast cancer Procedures MG Mammo Digital Screening w Faisal bilat Sppl, Self Referral [facility] Referral ID Status Reason Start Date Expiration Date V isits Requested Visits Authorized [id number] Pending Review 11/18/2024 11/18/2025 1 1 Encounter Details Date Type Department Care Team (Latest Contact Info) Description 01/26/2025 9:56 AM EST - 01/26/2025 11:59 PM EST Hospital [facility] at [address] [phone] Encounter for screening mammogram for breast cancer [...] year. Mammography location: [facility] at [address], [address] -------- FINAL REPORT -------- Dictated By: Oliver Salguero Dictated Date: 01/26/2025 10:50 ET Assigned Physician: Oliver Salguero Reviewed and Electronically Signed By: Oliver Salguero Signed Date: 01/26/2025 10:55 ET Workstation ID: [id number] Transcribed By: Self Edit Transcribed Date: 01/26/2025 10:50 ET Narrative 01/26/2025 10:55 AM EST EXAM: SCREENING MAMMOGRAPHY, BILATERAL HISTORY: SCREENING. No additional history. COMPARISON: 12/25/23, 12/20/22, 12/01/21, 11/02/20 TECHNIQUE: Synthesized CC and MLO projections of each breast. Tomosynthesis of each breast in the CC and MLO projections. ADDITIONAL IMAGING: None Computer-aided detection was employed with the [employer] AI 3-D. TISSUE DENSITY: There are scattered [...] None Computer-aided detection was employed with the [employer] ProFound AI 3-D. TISSUE DENSITY: There are [...] year. Mamm[facility] location: [facility] at [address], [address] -------- FINAL REPORT -------- Dictated By: Oliver Salguero Dictated Date: 01/26/2025 10:50 ET Assigned Physician: Oliver Salguero Reviewed and Electronically Signed By: Oliver Salguero Signed Date: 01/26/2025 10:55 ET Workstation ID: [id number] Transcribed By: Self Edit Transcribed Date: 01/26/2025 10:50 ET us Self Referral Sppl IMG BI PROCEDURES Final Resul t documented in this encounter Visit Diagnoses Diagnosis Encounter for screening mammogram for breast cancer documented in this encounter Care Teams Raiser Helper Relationship Specialty Start Date End Date Ger Granda MD [address] [place] [address] [address] [facility] [place] [address] PCP - General Internal Medicine 12/02/23 documented as of this encounter
--- NOTE | 2025-01-27 11:31 | A.OFFVIS_ITS ---
Intake Vital Signs 01/27/25 11:34 Height 5 ft 6 in Weight 165 lb 4 oz BMI 26.7 BP 136/70 Blood Pressure Location Lt brachial Position Sitting Pulse 71 Pulse Source Pulse Oximeter Temp 97.1 F Temp Source Temporal Artery Scan Pulse Oximetry (%) 97 Oxygen Delivery Method Room Air Intake Visit Reasons: awv - see comments Intake Note: Patient is here for an Annual Wellness Visit. Photo Lab Technician Required: No Production Line Operator: Production Line Operator offered & declined Accompanied by: Self / Same As Patient Allergies amiodarone Adverse Reaction (Intermediate, Verified 01/27/25 11:32) visual problem dronedarone (From Multaq) Adverse Reaction (Intermediate, Verified 01/27/25 11:32) not effective Medication List - Last Reconciled 01/27/25 by Ger Granda MD apixaban (Eliquis) 5 mg PO BID 90 days atorvastatin 80 mg PO DAILY ezetimibe 10 mg PO DAILY flecainide 150 mg PO Q12H metoprolol tartrate 25 mg PO BID HPI HPI Comments History of Present Illness Details History of Present Illness The patient is a 79-year-old female presenting for an annual wellness visit and management of her chronic conditions. Her medical history includes hypertension, hypercholesterolemia, generalized anxiety disorder, and osteoporosis, with her last bone density scan in October 2023. The patient has a history of atrial fibrillation and a second-degree AV block, for which a pacemaker was placed. She follows up with cardiology and had a pacemaker check in October. She takes flecainide 150 mg twice daily and cardiology noted that if her ventricular pacing dependence increases, her antiarrhythmic medication might need to be changed. She is also on Eliquis for anticoagulation and metoprolol tartrate 25 mg twice daily. She previously tried Multaq, which was ineffective, and had vision problems with amiodarone. For hypercholesterolemia, her LDL goal is less than 70 mg/dL, with a triglyceride goal of less than 150 mg/dL. Her last LDL in July was 85 mg/dL. She is currently taking atorvastatin 80 mg and Zetia 10 mg daily. Her last bloodwork in July 2024 showed a normal blood count, no anemia, normal electrolytes, and good renal function. Her fasting blood sugar was 88 mg/dL, and her hemoglobin A1c was 5.8%, which is slightly elevated. Vitamin D, folic acid, and thyroid function were within normal limits. Regarding health maintenance, she had a colonoscopy on Sunday which showed a tubular adenoma, and she was told this was her last one unless problems arise. Her mammogram was done yesterday, and she is awaiting results. She is up to date on her bone density scan. She receives an annual flu shot and had a shingles shot a long time ago. The patient reports hair loss, hearing loss with tinnitus, occasional dizziness that she attributes to not drinking enough water, and intermittent stabbing chest pain which she believes is muscular. She denies syncope, fever, nausea, vomiting, or problems with swallowing. She has a family history of dementia in both parents. Health Maintenance A tetanus shot was administered in the office. The two-part shingles vaccine series was recommended, and the patient plans to get the first dose before she leaves for [place]. She was encouraged to supplement with Vitamin D 2000 units daily. Ordered fasting blood work to re-evaluate lipid panel, HbA1c, and renal function. Discussed hearing loss and encouraged proper follow-up and treatment, noting its association with dementia. For hair loss, topical options like minoxidil were mentioned, while oral pills were discouraged due to potential cardiac side effects. Patient was advised to provide a copy of her health care proxy for her chart. Social History - Alcohol Use: Reports drinking half a g lass of wine about once a week. - Tobacco Use: Denies ever smoking cigar ettes. - Activity Level: Reports being more act rosaura while spending time in [place], where she walks almost every day. - Supplements: She is not taking any sup plements but was advised to take vitamin D. - Family history: Reports a family histo ry of dementia in both parents. Results - Labs (July 2024): - Complete Blood Count: Normal, no anemi a. - Comprehensive Metabolic Panel: Normal electrolytes, good renal function, normal liver function, normal calcium and magnesium. - Lipid Panel: LDL was 85 mg/dL. - Hemoglobin A1c: 5.8%. - Other labs: Vitamin D, folic acid, and thyroid function were all within normal limits. - Tests and Diagnostics: - Colonoscopy (recent): Revealed a tubul ar adenoma. - Mammogram (yesterday): Results are pen ding. - Bone Density Scan (October 2023): Ghassan baker is up-to-date. [facility] Medical History Osteopenia of multiple sites Osteopenia Cardiac pacemaker in situ Paroxysmal atrial fibrillation Impacted cerumen of both ears Hypercholesterolemia Hypertension Current use of anticoagulant therapy Surgical History H/O colonoscopy Eye globe prosthesis Social History (Updated 01/27/25 @ 12:00 by Ger Granda MD) Household Members: Spouse Housing: House Do you presently have visiting nurse or other home services: No Alcohol intake: current Alcohol intake frequency: holidays/special occasions only Alcohol type: wine Comment: once a week 1/2 wine Patient Tobacco Use Status: Never used Tobacco e-Cigarette/Vaping Use: Never Used Second Hand Smoke Exposure: No service: No Current occupational status: retired Cognitive needs: No Hearing needs: No Vision needs: Yes Questionnaire Medicare Wellness Checkup What [age] What gender do you identify with?: female Can you get to places out of walking distance without help? (For eg., can you travel alone on buses, taxis or drive your car?): Yes Can you go shopping for groceries or clothes without someone's help?: Yes Can you prepare your own meals?: Yes Can you do your housework without help?: Yes Because of any health problems, do you need the help of another person with your personal care needs such as eating, bathing, dressing or getting around the house?: No Can you handle your own money without help?: Yes Are you having difficulties driving your car?: no Do you always fasten your seat belt when you are in a car?: yes, usually During past 4 weeks, have you been bothered by the following: never: Falling or dizzy when standing up, Sexual problems?, Trouble eating well?, Teeth or denture problems?, Problems using the telephone? and Tiredness or fatigue? Have you fallen 2 or more times in the past year?: No Are you afraid of falling?: Yes Are you a smoker?: no During the past 4 weeks, how many drinks of wine, beer, or other alcoholic beverages did you have?: no alcohol at all Do you exercise for about 20 minutes 3 or more times a week?: no, I usually do not exercise this much Have you been given information to help with the following?: yes: Keeping track of your medications? and no: Hazards in your house that might hurt you? How often do you have trouble taking medicines the way you have been told to take them?: I always take medicine as prescribed How confident are you that you can control & manage most of your health problems?: very confident What is your race?: White Thrive Questionnaire Date Thrive assessed: 06/19/24 I am a: Patient What is your living situation today?: I have a steady place to live Within the past 12 months, did the food you bought not last and you didn't have the money to get more?: Never true Within the past 12 months, did you worry whether your food would run out before you got money to buy more?: Never true Do you have trouble paying for medicines?: No Do you have trouble getting transportation to medical appointments?: No Do you have trouble paying your heating and electricity bill?: No Do you have trouble taking care of your child, family member or friend?: No Do you have trouble with day-to-day activities such as bathing, preparing meals, shopping, managing finances, etc.?: No Are you currently unemployed and looking for a job?: No Are you interested in more education?: No Please select the resources that you would like help with: None Currently or been in a relationship where the following occur: No concerns reported THRIVE Score: 0 GREG-7 AMB Questionnaire GREG-7 Date GREG - 7 assessed: 06/19/24 Source: Developed by Drs. Ced York, Moriah Nugent, Kamlesh Bauer and colleagues, with an educational angie from [employer]. Review of Systems Narrative Review of Systems - General: Denies fever. - Integumentary: Reports hair loss. - HEENT: Reports hearing loss and tinnitus, particularly when using a hearing aid. Denies problems with swallowing. - Cardiovascular: Reports intermittent, stabbing chest pain that she believes is muscular and is not associated with exertion. Denies exertional chest pressure or waking up short of breath. - Respiratory: Denies waking from sleep with shortness of breath or dyspnea on exertion. - Gastrointestinal: Denies nausea, vomiting, or heartburn. Reports occasional constipation but is otherwise okay. - Genitourinary: Reports waking up once at night to urinate. - Musculoskeletal: Reports intermittent pain on her left side but denies falling or injury. - Neurological: Reports occasional dizziness. Denies syncope. Const Denies poor appetite and Denies weakness Eyes Denies no additional complaints ENT Reports Normal hearing present, Denies dizziness, Denies nasal congestion, Denies tinnitus and Denies sore throat Card Denies chest pain, Denies syncope, Denies rapid heart rate and Denies dyspnea Resp Denies cough and Denies dyspnea GI Denies change in stool character, Reports constipation, Denies diarrhea, Denies nausea and Denies vomiting Denies urinary frequency, Denies difficulty voiding and Denies dysuria Neuro Reports Normal hearing present, Denies confusion, Denies dizziness, Denies syncope and Denies weakness Psych Denies confusion Physical Exam Exam Exam: Physical Exam General: Cooperative, healthy appearing, comfortable, no acute distress and well developed Orientation: Patient oriented x3 Limitations: No limitations Head: Normal to inspection Ears: Hearing impaired, tinnitus present Nose: Normal external nose present Face and sinus: Normal facial exam Eyes: Appearance normal, both eyes and all related structures Neck: Normal visual inspection and Yes full ROM Respiratory: Normal respiratory effort and able to speak in complete sentences. Clear to auscultation bilaterally Cardiovascular: Regular rate and rhythm. Normal S1 and S2 GI: Normal to inspection. Soft to palpation and nontender Skin: No rashes or lesions noted Neuro: Patient oriented x3 Extremities: Normal to inspection Vital Signs: Last Vital Signs Temp 97.1 F 01/27/25 11:34 Pulse 71 01/27/25 11:34 BP 136/70 01/27/25 11:34 Pulse Ox 97 01/27/25 11:34 Oxygen Delivery Method Room Air 01/27/25 11:34 BMI result Body Mass Index 26.7 Const General: No confusion Orientation/consciousness: No confusion HEENT Head: Yes normocephalic Ears: external ears normal and TM's normal bilaterally Face and sinus: Yes normal facial exam Mouth: moist mucous membranes Throat: Yes tonsils normal Eyes Conjunctivae: conjunctivae normal Pupils: Equal, round and reactive pupils present and Pupil accommodation reflex normal Direct Ophthalmoscopy: normal light reflex Neck Neck: No lymphadenopathy Thyroid: Thyroid normal Chest Chest palpation & inspection: normal inspection of the chest Resp Effort & Inspection: normal respiratory effort and no audible wheezes Auscultation: clear to auscultation bilaterally, no crackles, no wheezes and lung sounds not diminished Cardio Rate: regular rate Rhythm: regular rhythm Peripheral pulses: radial pulses present and dorsalis pedis present GI Palpation (GI): no masses Auscultation: normal bowel sounds and normoactive bowel sounds Rectal Exam - Female: deferred Skin General skin exam: no rashes or lesions noted Rashes: no rashes Neuro General: No confusion Cranial nerves: Yes Equal, round and reactive pupils present and Yes Normal hearing present Cognition (Neuro): normal cognition Gait exam (Neuro): Normal gait present Motor exam (neuro): 5/5 motor strength present throughout Deep tendon reflexes (DTR's): Right brachioradialis reflex intensity grade: 2+, Left brachioradialis reflex intensity grade: 2+, Right patellar reflex intensity grade: 2+ and Left patellar reflex intensity grade: 2+ Extrem General: No edema Immunizations Tenivac (PF) 5 Lf unit-2 Lf unit/0.5 mL intramuscular syringe Performing Provider: Ger Granda MD [facility] Administered by: Tomasa Nelson LPN on 01/27/25 12:25 Dose Route Admin Location Dispensed Lot Number Expiration Date NDC Room Maid 0.5 mL IM Left Deltoid 0.5 mL [id number] 05/11/26 39220-836-23 [employer]PA[employer] Total Dispensed Waste 0.5 mL 0 % VIS Given Date VIS Provided VIS Publication Date 01/27/25 Single Vaccine 20 Eligibility Eligibility Date Funding Source Not [facility] Eligible 01/27/25 Private Assessment & Plan Assessment & Plan (1) Medicare annual wellness visit, subsequent: Code(s): Z00.00 - Encounter for general adult medical examination without abnormal findings Plan: Patient is advised to eat healthy, keep well hydrated, keep active and have adequate sleep. (2) Hypertension: Code(s): I10 - Essential (primary) hypertension Qualifiers: Hypertension type: essential hypertension Qualified Code(s): I10 - Essential (primary) hypertension Plan: Continue with blood pressure medication. Decrease salt intake and exercise on metoprolol tartrate 25 mg twice a day (3) Paroxysmal atrial fibrillation: Code(s): I48.0 - Paroxysmal atrial fibrillation Plan: Continue with anticoagulation with Eliquis twice a day year blood work requested on flecainide 150 mg twice a day. Patient continues to have pacemaker checked as on the notes if there is a lot of ventricular pacing may need to switch medication. (4) Hypercholesterolemia: Code(s): E78.00 - Pure hypercholesterolemia, unspecified Plan: Avoid fried foods, chicken skin, eggs, butter margarine, pastries and meat. Be it pork or beef they have a lot of cholesterol LDL goal of less than 70 and triglyceride of less than 150 on atorvastatin 80 mg once a day and Zetia 10 mg once a day (5) Cardiac pacemaker in situ: Comment: Dual-chamber [employer] pacemaker placed for transient AV block Code(s): Z95.0 - Presence of cardiac pacemaker Plan: Continue to be monitored by Cardiology (6) Age-related osteoporosis without current pathological fracture: Code(s): M81.0 - Age-related osteoporosis without current pathological fracture Plan: is up-to-date with bone density (7) Generalized anxiety disorder: Code(s): F41.1 - Generalized anxiety disorder Plan: Stable Plan Plan Patient was informed and verbally consented to the use of an ambient scribe for clinic note documentation during this visit. 1. Atrial Fibrillation / Second-Degree Atrioventricular Block With Pacemaker The patient will continue management under cardiology with Dr. Bledsoe, with her next follow-up in two weeks. She will continue flecainide 150 mg twice daily, metoprolol tartrate 25 mg twice daily, and Eliquis 5 mg twice a day. Cardiology has noted that a change in antiarrhythmic medication may be necessary if there is increasing ventricular pacing dependence to preserve pacemaker battery life. Repeat blood work, including a kidney function test, is ordered as required for Eliquis monitoring, with panels checked twice yearly. 2. Prediabetes The patient's hemoglobin A1c of 5.8% indicates prediabetes. No medication is needed at this time. The plan is to monitor with repeat blood work and focus on lifestyle modifications, including a diet low in carbohydrates and sweets, and increasing physical activity. A fasting blood glucose and HbA1c are included in the ordered lab work. 3. Hypercholesterolemia The LDL goal is less than 70 mg/dL, as per cardiology recommendation. The patient's last LDL was 85 mg/dL on atorvastatin 80 mg and ezetimibe 10 mg. A fasting lipid panel is ordered to recheck levels. If the LDL remains above goal, the plan is to switch atorvastatin to rosuvastatin. The patient was counseled on dietary modifications to help lower her cholesterol. Discussion Notes I discussed the results of the patient's [place] lab work with her. I explained t hat her hemoglobin A1c of 5.8% is slightly elevated, indicating prediabetes, but does not require medication at this time. We discussed the importance of dietary changes, specifically reducing intake of carbohydrates and sweets, and increasing physical activity to manage this. I also informed her that her LDL cholesterol of 85 mg/dL is above the goal of less than 70 mg/dL set by her direct care specialist. I presented the option of switching her from atorvastatin to rosuvastatin if her repeat labs do not show improvement, and she was agreeable to this plan. I ordered fasting blood work to recheck her lipids, HbA1c, and kidney function, as she is due for monitoring for her Eliquis prescription. We reviewed the note from her direct care specialist regarding her pacemaker and heart rhythm medication. I explained that if her pacemaker shows increased ventricular dependence, her medication might be changed to preserve the pacemaker's battery life. We discussed her health maintenance screenings. I confirmed she is up-to-date with her bone density and recently completed her final recommended colonoscopy and a mammogram. I recommended she get the two-part shingles vaccine and administered a tetanus shot in the office. I also advised her to take vitamin D supplements and provided her with a lab request for her blood work, instructing her to fast beforehand and to contact the office for results if she doesn't hear from us. Patient Instructions - Please go for fasting blood work. This means no food for 8 hours before the test; you can have water. - Continue your current medications as prescribed. We will discuss changing your cholesterol medication if your lab results show it is still high. - Be mindful of your diet to help manage your blood sugar and cholesterol. Try to limit foods like pasta, bread, rice, potatoes, and sweets. Eat more green leafy vegetables. - Maintain physical activity, such as walking, to help burn calories. - Take Vitamin D 2000 units once a day, especially when you are not in the sun. - Get the two-part shingles vaccine series. You can get the first shot before you go to [place], and the second shot 2 to 6 months later. - You received a tetanus vaccine today. - Continue to follow up with your direct care specialist, Dr. Bledsoe, as scheduled. Your next appointment is in two weeks. - Please provide the office with a copy of your health care proxy document. - If you do not receive a call about your lab results, please send a message through the portal or call the office. Orders: Orders Vitamin B12 and Folate Today I48.0 - Paroxysmal atrial fibrillation Comprehensive Met. Panel Today I48.0 - Paroxysmal atrial fibrillation Complete Blood Count Auto Diff Today I48.0 - Paroxysmal atrial fibrillation Lipid Panel Today E78.00 - Pure hypercholesterolemia, unspecified, I48.0 - Paroxysmal atrial fibrillation Thyroid Stimulating Hormone Today I48.0 - Paroxysmal atrial fibrillation Free T4 (Free Thyroxine) Today I48.0 - Paroxysmal atrial fibrillation Hemoglobin A1c Today I48.0 - Paroxysmal atrial fibrillation Magnesium Today I48.0 - Paroxysmal atrial fibrillation Td Immunization Today Z23 - Encounter for immunization Coding Level of Care Code Medicare Subsequent (G0439) Diagnoses Medicare annual wellness visit, subsequent Z00.00 Essential hypertension I10 Hypertension type: essential hypertension Paroxysmal atrial fibrillation I48.0 Hypercholesterolemia E78.00 Cardiac pacemaker in situ Z95.0 Age-related osteoporosis without current pathological fracture M81.0 Generalized anxiety disorder F41.1
[2025-01-27 11:34] VITALS: BP 136/70; PULSE 71; TEMP 36.2; O2SAT 97; BMI 26.7
--- OUTSIDE RECORDS SUMMARY | 2025-01-27 15:10 | XMS_ITS | Clinical Summary ---
Author Organization [facility] Address [address] [place] [id number] Phone Care Team Providers Care Kosher Inspector Name Role Phone Ger Granda MD Primary Care Provider [phone] Encounters Date Type Department Care Team Description 01/26/2025 9:56 AM EST - 01/26/2025 11:59 PM EST Hospital Encounter [facility] [address] [id number] Encounter for screening mammogram for breast cancer Discharge Disposition: Home or Self Care from Last 3 Months Social History Tobacco Use Types Packs/Day Years [...] 04/24/1966 Zoster Vaccines (1 of 2) 04/24/1997 Cholesterol Screening (Lipid Panel) 01/14/2022 Falls Risk Assessment 01/14/2022 Hepatitis C Screening 01/14/2022 Medicare Annual Wellness Visit 01/14/2022 Osteoporosis Screening (Bone Density Screening) 01/14/2022 Social Influencers of Health Screening 01/14/2022 Pneumococcal Vaccine: 50+ Years (2 of 2 - PCV) 03/30/2022 03/30/2021 RSV Immunization Adult Patients (1 - 1-dose 75+ series) 04/24/2022 Depression Screening 02/13/2024 COVID-19 Vaccine ( season) 2024 12/13/2020, 11/24/2020, 04/17/2020, Additional history exists Hypertension/CHF/CAD Annual BMP Blood Test 01/26/2025 Breast Cancer Screening Discontinued 01/27/20, 12/25/2023, 12/20/2022, Additional history exists Influenza Vaccine Completed 11/13/2024, , 12/28/2022, Additional history exists HIB Vaccines Aged Out [...] for breast cancer from Last 3 Months Results * MG Mammo Digital Screening w [...] year. Mamm[facility] location[facility] at [address], [address] -------- FINAL REPORT -------- Dictated By: Oliver Salguero Dictated Date: 01/26/2025 10:50 ET Assigned Physician: Oliver Salguero Reviewed and Electronically Signed By: Oliver Salguero Signed Date: 01/26/2025 10:55 ET Workstation ID: [id number] Transcribed By: Self Edit Transcribed Date: 01/26/2025 10:50 ET Narrative 01/26/2025 10:55 AM EST EXAM: SCREENING MAMMOGRAPHY, BILATERAL HISTORY: SCREENING. No additional history. COMPARISON: 12/25/23, 12/20/22, 12/01/21, 11/02/20 TECHNIQUE: Synthesized CC and MLO projections of each breast. Tomosynthesis of each breast in the CC and MLO projections. ADDITIONAL IMAGING: None Computer-aided detection was employed with the [employer] AI 3-D. TISSUE DENSITY: There are scattered [...] None Computer-aided detection was employed with the [employer] AI 3-D. TISSUE DENSITY: There are scattered [...] year. Mammography location: [facility] at [address], [address] -------- FINAL REPORT -------- Dictated By: Oliver Salguero Dictated Date: 01/26/2025 10:50 ET Assigned Physician: Oliver Salguero Reviewed and Electronically Signed By: Oliver Salguero Signed Date: 01/26/2025 10:55 ET Workstation ID: [id number] Transcribed By: Self Edit Transcribed Date: 01/26/2025 10:50 ET us Self Referral Sppl IMG BI PROCEDURES Final Resul t from Last 3 Months Insurance [facility] - [place] MEDICARE ADVANTAGE Care Teams Kosher Inspector Relationship Specialty Start Date End Date Ger Granda MD [address] [place] [address] [address] [facility] [place] [address] PCP - General Internal Medicine 12/02/23
--- OUTSIDE RECORDS SUMMARY | 2025-01-27 15:10 | XMS_ITS | Patient Health Record ---
Author Organization [facility] Address [address] [place] [address] Care Team Providers Care Message And Delivery Service Pricer Name Role Phone Ger Granda MD Primary Care Provider Ced Rendon [phone] Allergies No Known Allergies Results Component Value Reference Range Notes Pathology (Not yet reviewed by provider) Interpretation: Performing Lab:[facility], [address] [place] [phone] Notes/Report: Reason For Referral No Information Medications Medication SIG (Take, Route, Frequency, Duration) Notes Start Date End Date Status Metoprolol Succinate 25 MG Capsule ER 24 Hour Sprinkle 1 capsule Orally Once a day Active Ezetimibe 10 MG Tablet 1 tablet Orally O nce a day 10/09/2024 Active Atorvastatin Calcium 80 MG Tablet 1 tablet Orally Once a day Active Flecainide Acetate 150 MG Tablet as directed Orally Active Eliquis 5 MG Tablet as directed Orally Active Immunizations Vaccine Route Administration Date Status Comme nts Influenza Unknown 11/27/2023 Administered Social History Social History Additional Details Category Social Info Options Details Miscellaneous: Marital status: Occupation: Retired Section Notes: Nonsmoker; no alcohol Nonsmoker; no alcohol Problems Problem Type SNOMED Code ICD Code Onset Dates Problem Status W/U Status Risk Notes Problem Colon cancer screening (795932459) Colon cancer screening (Z12.11) Active confirmed Problem Long-term current use of antithrombotic (938908533914448) snf (current) use of antithrombotics/ antiplatelets (Z79.02) Active confirmed Problem Preprocedural examination (097819227579372) Preprocedural examination (Z01.818) Active confirmed Vital Signs Temperature 97.8 degrees Fahrenheit 10/09/2024 Blood pressure diastolic 01 mm Hg 10/09/2024 Height 66 in 10/09/2024 Blood pressure systolic 001 mm Hg 10/09/2024 Weight 163.6 lbs 10/09/2024 BMI 26.4 kg/m2 10/09/2024 Procedures Procedure Date Ordered Date Performed Result Body Sit e COLONOSCOPY 10/09/2024 N/A Encounters Encounter Location Date Provider Diagnosis 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 Given her age, excellent clinical appearance, and her last colonoscopy being over 10 years ago, I did recommend a follow-up colonoscopy for further screening purposes. We did review the rationale for that in regard to colon cancer prevention. Full consent has been obtained for this, including risks of bleeding and perforation. The procedure will be done with monitored anesthesia care. She was given the below instructions regarding adjustment of her medication for the procedure. Bo was comfortable with this plan. Thank you again for allowing me to participate in Bo's care. I shall continue to keep you advised of her progress. 10/09/2024 Preprocedural examination (ICD-10 - Z01.818) Overall, Bo appears quite well. Given her age, excellent clinical appearance, and her last colonoscopy being over 10 years ago, I did recommend a follow-up colonoscopy for further screening purposes. We did review the rationale for that in regard to colon cancer prevention. Full consent has been obtained for this, including risks of bleeding and perforation. The procedure will be done with monitored anesthesia care. She was given the below instructions regarding adjustment of her medication for the procedure. Bo was comfortable with this plan. Thank you again for allowing me to participate in Bo's care. I shall continue to keep you advised of her progress. 10/09/2024 Colon cancer screening (ICD-10 - Z12.11) Overall, Bo appears quite well. Given her age, excellent clinical appearance, and her last colonoscopy being over 10 years ago, I did recommend a follow-up colonoscopy for further screening purposes. We did review the rationale for that in regard to colon cancer prevention. Full consent has been obtained for this, including risks of bleeding and perforation. The procedure will be done with monitored anesthesia care. She was given the below instructions regarding adjustment of her medication for the procedure. Bo was comfortable with this plan. Thank you again for allowing me to participate in Bo's care. I shall continue to keep you advised of her progress. Plan Of Treatment Pending Test Test Name Order Date COLONOSCOPY 10/09/2024 Pathology 01/19/2025 Future Test Test Name Order Date COLONOSCOPY 02/24/2014 Insurance Providers Payer Name Payer Address Payer Phone Subscriber Number Group Number Insured Name Patient Relationship to Insured Coverage Start Date Coverage End Date [facility] [address] [place], [place] [id number] BO BERRY Self - patient is the insured Medical (General) History Medical History History ICD Code Atrial fibrillation- sees Dr. 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
== END 2025-01-27 12:28 | disposition home or self-care (01) ==
LOC: HO.HMCH 11:29
PROVIDERS: PCP Internal Medicine; Visit Provider Internal Medicine
DX: I48.0 Paroxysmal atrial fibrillation (principal); I10 Essential (primary) hypertension; E78.00 Pure hypercholesterolemia, unspecified; Z95.0 Presence of cardiac pacemaker; M81.0 Age-related osteoporosis without current pathological fracture; F41.1 Generalized anxiety disorder; Z23 Encounter for immunization

== ENCOUNTER → 2025-01-27 11:28 | Outpatient (BNVA) | payer BC, SELFPAY | PROVIDERS: PCP Internal Medicine; Visit Provider Internal Medicine | DX: Z00.00 Encounter for general adult medical examination without abnormal findings (principal); Z23 Encounter for immunization; I10 Essential (primary) hypertension; I48.0 Paroxysmal atrial fibrillation; E78.00 Pure hypercholesterolemia, unspecified; M81.0 Age-related osteoporosis without current pathological fracture; F41.1 Generalized anxiety disorder; Z95.0 Presence of cardiac pacemaker | CPT/HCPCS: 90471; 90714 ==

== ENCOUNTER 2025-01-29 09:00 | Outpatient (REF) | payer BC, SELFPAY ==
--- OUTSIDE RECORDS SUMMARY | 2025-01-19 06:40 | XMS_ITS ---
Author Organization [facility] Address [address] [place] [address] Care Team Providers Care Log Yard Manager Name Role Phone Ger Granda MD Primary Care Provider Ced Rendon [phone] REASON FOR VISIT screening Encounters Encounter Location Date Provider Diagnosis [facility] Out[place] [address] [place], [place] [phone] 01/19/2025 Ced Segal Plan Of Treatment No Information Progress Notes * MAGDALENA BERRYINEDOB: [birth year] (79 yo F)Acc No.[id number]:01/19/2025 COLON WITH MAC Patient: BO ANDRADE Provider: Forrest Segal MD :1945 A ge:79 Y S ex:Female Date:01/19/2025 Address:[address] [place], [place] [phone] Pcp:Ger Granda MD Subjective: * Chief Complaints: * S creening Billing Information: * Procedure Codes: * The named appointment provid er may or may not be the originator of this progress note, and it is not deemed complete until electronically signed by the appointment provider. Sign off status: Pending * Provider: Forrest Segal MD Date: 03/22/2024 Generated for Kvng munoz/Faangelg/eTransmitting on: 04/01/2024 10:41 AM EST
--- OUTSIDE RECORDS SUMMARY | 2025-01-26 09:56 | XMS_ITS | Encounter Summary ---
Author Organization [facility] Address [address] [place] [address] Care Team Providers Care Nurse Rn Bsn Name Role Phone Ger Granda MD Primary Care Provider [phone] Reason for Referral * Imaging (Routine) - Pending Review Specialty Diagnoses / Procedures Referred By Francois burton Referred To Contact Radiology Diagnoses Encounter for screening mammogram for breast cancer Procedures MG Mammo Digital Screening w Faisal bilat Spp, Self Referral [facility] Referral ID Status Reason Start Date Expiration Date V isits Requested Visits Authorized [id number] Pending Review 11/18/2024 11/18/2025 1 1 * Imaging (Routine) - Pending Review Specialty Diagnoses / Procedures Referred By Contac t Referred To Contact Radiology Diagnoses Encounter for screening mammogram for breast cancer Procedures MG Mammo Digital Screening w Faisal bilat Spp, Self Referral [facility] Referral ID Status Reason Start Date Expiration Date V isits Requested Visits Authorized [id number] Pending Review 11/18/2024 11/18/2025 1 1 Reason for Visit * Imaging (Routine) - Pending Review Specialty Diagnoses / Procedures Referred By Contac t Referred To Contact Radiology Diagnoses Encounter for screening mammogram for breast cancer Procedures MG Mammo Digital Screening w Faisal bilat Sppl, Self Referral [facility] Referral ID Status Reason Start Date Expiration Date V isits Requested Visits Authorized [id number] Pending Review 11/18/2024 11/18/2025 1 1 Encounter Details Date Type Department Care Team (Latest Contact Info) Description 01/26/2025 9:56 AM EST - 01/26/2025 11:59 PM EST Hospital [facility] [address] [address] Encounter for screening mammogram for breast cancer Discharge Disposition: Home or Self Care Social History Tobacco Use Types Packs/Day Years Used Date Smoking Tobacco: Never Assessed Comments No Sex and Gender Information Value Date Recorded Sex Assigned at Not on file Legal Sex Female 9:45 PM EST Gender Identity Not on file Sexual Orientation Not on file documented as of this encounter Discharge Disposition Disposition Code Departure Means Destination Home or Self Care documented in this encounter Plan of Treatment Not on file documented as of this encounter Procedures Procedure Name Priority Date/Time Associated Diagnosis Comments MG MAMMO DIGITAL SCREENING W FAISAL BILAT Routine 01/26/2025 10:16 AM EST Encounter for screening mammogram for breast cancer documented in this encounter Results * MG Mammo Digital Screening w Faisal bilat (01/26/2025 10:16 AM EST) Anatomical Region Laterality Modality Breast Bilateral Mammography 01/26/2025 10:5 0 AM EST Impressions 01/26/2025 10:55 AM EST No mammographic evidence of malignancy. No suspicious interval change. A negative mammogram in the presence of a clinically suspicious palpable abnormality does not preclude the possibility of malignancy or alter the indications for biopsy. ASSESSMENT: BI-RADS 1: NEGATIVE RECOMMENDATION(S): 1: Routine screening mammogram BILATERAL in 1 year. [facility]amm[facility] location[facility] at [address], [address] -------- FINAL REPORT -------- Dictated By: Oliver Salguero Dictated Date: 01/26/2025 10:50 ET Assigned Physician: Oliver Salguero Reviewed and Electronically Signed By: Oliver Salguero Signed Date: 01/26/2025 10:55 ET Workstation ID: [id number] Transcribed By: Self Edit Transcribed Date: 01/26/2025 10:50 ET Narrative 01/26/2025 10:55 AM EST EXAM: SCREENING MAMMOGRAPHY, BILATERAL HISTORY: SCREENING. No additional history. COMPARISON: 12/25/23, 12/20/22, 12/01/21, 11/02/20 TECHNIQUE: Synthesized CC and MLO projections of each breast. Tomosynthesis of each breast in the CC and MLO projections. ADDITIONAL IMAGING: None Computer-aided detection was employed with the [employer] AI 3-D. TISSUE DENSITY: There are scattered areas of fibroglandular density. (BI-RADS category B) FINDINGS: RIGHT BREAST: No suspicious mass. No suspicious calcification. No distortion. No additional suspicious right breast findings LEFT BREAST: No suspicious mass. No suspicious calcification. No distortion. No additional suspicious left breast findings Procedure Note Oliver Salguero MD - 01/26/2025 EXAM: SCREENING MAMMOGRAPHY, BILATERAL HISTORY: SCREENING. No additional history. COMPARISON: 12/25/23, 12/20/22, 12/01/21, 11/02/20 TECHNIQUE: Synthesized CC and MLO projections of each breast.Tomosynthesis of each breast in the CC and MLO projections. ADDITIONAL IMAGING: None Computer-aided detection was employed with the [employer] ProFound AI 3-D. TISSUE DENSITY: There are scattered areas of fibroglandular density.(BI-RADS category B) FINDINGS: RIGHT BREAST: No suspicious mass. No suspicious calcification. No distortion. Noadditional suspicious right breast findings LEFT BREAST: No suspicious mass. No suspicious calcification. No distortion. Noadditional suspicious left breast findings IMPRESSION: No mammographic evidence of malignancy. No suspicious interval change. A negative mammogram in the presence of a clinically suspicious palpableabnormality does not preclude the possibility of malignancy or alter theindications for biopsy. ASSESSMENT: BI-RADS 1: NEGATIVE RECOMMENDATION(S): 1: Routine screening mammogram BILATERAL in 1 year. [facility]amm[facility] location: [facility] at [address], [address] -------- FINAL REPORT -------- Dictated By: Oliver Salguero Dictated Date: 01/26/2025 10:50 ET Assigned Physician: Oliver Salguero Reviewed and Electronically Signed By: Oliver Salguero Signed Date: 01/26/2025 10:55 ET Workstation ID: [id number] Transcribed By: Self Edit Transcribed Date: 01/26/2025 10:50 ET us Self Referral Sppl IMG BI PROCEDURES Final Resul t documented in this encounter Visit Diagnoses Diagnosis Encounter for screening mammogram for breast cancer documented in this encounter Care Teams Nurse Rn Bsn Relationship Specialty Start Date End Date Ger Granda MD [address] [place] [address] [address] [facility] [place] [address] PCP - General Internal Medicine 12/02/23 documented as of this encounter
[2025-01-29 09:41] LABS: MANUAL DIFF FLAG NO
[2025-01-29 10:21] LABS: Hematocrit 39.9 % (37.0-47.0); Hemoglobin 13.0 g/dl (12.0-16.0); Imm Gran Abs Auto 0.03 X10*3/uL (0.00-0.03); Imm Gran Pct Auto 0.5 % (0.0-0.4); Lymphocytes Absolute Auto 1.7 X10*3/uL (1.2-4.9); Mean Corpuscular HGB Conc 32.6 g/dl (31.0-35.0); Mean Corpuscular Hemoglobin 31.2 pg (27.0-33.0); Mean Corpuscular Volume 95.7 fL (80.0-98.0); NRBC Abs Auto 0.000 X10*3/uL (0.0-0.012); NRBC Pct Auto 0.0 /100WBC (0.0-0.2); Platelet Count 238 X10*3/uL (160-400); Red Blood Count 4.17 X10*6/uL (4.20-5.50); White Blood Count 6.5 X10*3/uL (4.8-10.8)
--- OUTSIDE RECORDS SUMMARY | 2025-01-29 10:42 | XMS_ITS | Patient Health Record ---
Author Organization [facility] Address [address] [place] [address] Care Team Providers Care Retail Manager In Training Name Role Phone Ger Granda MD Primary Care Provider Ced Rendon [phone] Allergies No Known Allergies Results Component Value Reference Range Notes Pathology (Not yet reviewed by provider) Interpretation: Performing Lab:[facility], [address] [place] [phone] Notes/Report: Reason For Referral No Information Medications [...] Status Risk Notes Problem Colon cancer screening (121570825) Colon cancer screening (Z12.11) Active confirmed Problem Long-term current use of antithrombotic (917342987798856) care home (current) use of antithrombotics/ antiplatelets (Z79.02) Active confirmed Problem Preprocedural examination (085107229482082) Preprocedural examination (Z01.818) Active confirmed Vital Signs Temperature 97.8 degrees Fahrenheit 10/09/2024 Blood pressure diastolic 01 mm Hg 10/09/2024 Height 66 in 10/09/2024 Blood pressure systolic 001 mm Hg 10/09/2024 Weight 163.6 lbs 10/09/2024 BMI 26.4 kg/m2 10/09/2024 Procedures Procedure Date Ordered Date Performed Result Body Sit e COLONOSCOPY 10/09/2024 N/A Encounters Encounter Location Date Provider Diagnosis [facility] [address] [place], [place] [phone] 01/19/2025 Ced Segal [facility] [address] [place] [address] 10/09/2024 Ced Segal superintendent terminal (current) use of antithrombotics/antipl atelets Z79.02 ; Preprocedural examination Z01.818 and Colon cancer screening Z12.11 Assessments Encounter Date Diagnosis (ICD Code) Assessment Notes Treatment Notes Treatment Clinical Notes Section Notes 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
--- OUTSIDE RECORDS SUMMARY | 2025-01-29 10:42 | XMS_ITS | Clinical Summary ---
Author Organization [facility] Address [address] [place] [address] Phone Care Team Providers Care Transactional Paralegal Name Role Phone Ger Granda MD Primary Care Provider [phone] Encounters Date Type Department Care Team Description 01/26/2025 9:56 AM EST - 01/26/2025 11:59 PM EST Hospital Encounter [facility] at [address] [address] Encounter for screening mammogram for [...] year. [facility]ammography location[facility] [address], [address] -------- FINAL REPORT -------- Dictated By: Oliver Salguero Dictated Date: 01/26/2025 10:50 ET Assigned Physician: Oliver Salguero Reviewed and Electronically Signed By: Oliver Salguero Signed Date: 01/26/2025 10:55 ET Workstation ID: [id number] Transcribed By: Self Edit Transcribed Date: 01/26/2025 10:50 ET Narrative 01/26/2025 10:55 AM EST EXAM: SCREENING MAMMOGRAPHY, BILATERAL HISTORY: SCREENING. No additional history. COMPARISON: 12/25/23, 12/20/22, 12/01/21, 11/02/20 TECHNIQUE: Synthesized CC and MLO projections of each breast. Tomosynthesis of each breast in the CC and MLO projections. ADDITIONAL IMAGING: None Computer-aided detection was employed with the [employer] AI 3-D. TISSUE DENSITY: There are scattered [...] None Computer-aided detection was employed with the [employer] AI 3-D. TISSUE DENSITY: There are scattered [...] year. [facility]amm[facility] at [address], [address] -------- FINAL REPORT -------- Dictated By: Oliver Salguero Dictated Date: 01/26/2025 10:50 ET Assigned Physician: Oliver Salguero Reviewed and Electronically Signed By: Oliver Salguero Signed Date: 01/26/2025 10:55 ET Workstation ID: [id number] Transcribed By: Self Edit Transcribed Date: 01/26/2025 10:50 ET us Self Referral Sppl IMG BI PROCEDURES Final Resul t from Last 3 Months Insurance [facility] [employer] [employer] - [place] MEDICARE ADVANTAGE Care Teams Transactional Paralegal Relationship Specialty Start Date End Date Ger Granda MD [address] [place] [address] [address] [facility] [place] [address] PCP - General Internal Medicine 12/02/23
[2025-01-29 11:43] LABS: Alanine Aminotransferase 28 U/L (0-31); Albumin Level 4.4 g/dL (3.5-5.0); Alkaline Phosphatase 87 U/L (39-117); Anion Gap 11 (12-20); Aspartate Amino Transferase 30 U/L (5-31); Blood Urea Nitrogen 23 mg/dL (9-16); Calcium 9.5 mg/dL (8.4-10.2); Carbon Dioxide 30 mmol/L (22-29); Chloride 107 mmol/L (96-108); Cholesterol 159 mg/dL (<200); Estimated Glomerular Filt Rate 58; Free T4 (Free Thyroxine) 0.95 ng/dL (0.71-1.85); HDL Cholesterol 65 mg/dL (>40); Magnesium 2.2 mg/dL (1.6-2.6); Potassium 4.5 mmol/L (3.3-5.1); Sodium 143 mmol/L (135-145); Thyroid Stimulating Hormone 1.65 uIU/mL (0.32-4.0); Total Protein 6.8 g/dL (6.5-8.0); Triglycerides 60 mg/dL (<150)
[2025-01-29 11:52] LABS: Folate 10.1 ng/mL (> or = 4.0); Vitamin B12 417 pg/mL (200-900)
== END 2025-01-29 09:01 | disposition home or self-care (01) ==
LOC: HO.LAB 09:00
PROVIDERS: PCP Internal Medicine; Visit Provider Internal Medicine
DX: Z00.00 Encounter for general adult medical examination without abnormal findings (principal); I10 Essential (primary) hypertension; I44.1 Atrioventricular block, second degree; I48.0 Paroxysmal atrial fibrillation; E78.00 Pure hypercholesterolemia, unspecified; M81.0 Age-related osteoporosis without current pathological fracture; F41.9 Anxiety disorder, unspecified; Z79.899 Other long term (current) drug therapy; Z95.0 Presence of cardiac pacemaker; Z79.1 Long term (current) use of non-steroidal anti-inflammatories (NSAID); R73.03 Prediabetes
CPT/HCPCS: 36415; 80053; 80061; 82607; 82746; 83036; 83735; 84439; 84443; 85025

== ENCOUNTER 2025-02-10 10:47 | Outpatient (AMB) | payer BC, SELFPAY ==
--- OUTSIDE RECORDS SUMMARY | 2025-01-19 06:40 | XMS_ITS ---
Author Organization [facility] Address [address] [place] [address] Care Team Providers Care Motion Study Analyst Name Role Phone Ger Granda MD Primary Care Provider Ced Rendon [phone] REASON FOR VISIT screening Encounters Encounter Location Date Provider Diagnosis [facility] [place] [address] [place], [place] [phone] 01/19/2025 Ced Segal Plan Of Treatment No Information Progress Notes * MAGDALENA BERRYINEDOB: [birth year] (79 yo F)Acc No.[id number]:01/19/2025 COLON WITH MAC Patient: BO ANDRADE Provider: Forrest Segal MD :1945 A ge:79 Y S ex:Female Date:01/19/2025 Address:[address] [place], [place] [id number] Pcp:Ger Granda MD Subjective: * Chief Complaints: * S creening Billing Information: * Procedure Codes: * The named appointment provid er may or may not be the originator of this progress note, and it is not deemed complete until electronically signed by the appointment provider. Sign off status: Pending * Provider: Forrest Segal MD Date: 03/22/2024 Generated for Kvng ng/Faangelg/eTransmitting on: 02:35 PM EST
[2025-02-10 10:58] VITALS: BP 120/76; PULSE 60; BMI 26.7
--- NOTE | 2025-02-10 10:58 | MHC.OFFVIS ---
Vital Signs 02/10/25 10:58 Height 5 ft 6 in Weight 165 lb 5.547 oz BMI 26.7 BP 120/76 Blood Pressure Location Lt brachial Position Sitting Pulse 60 Intake Visit Reasons: f/up w/ ? st negro pacer ck Intake Note: Follow-up St Negro pacer and ekg feelng Papier Mache Molder Required: No Allergies amiodarone Adverse Reaction (Intermediate, Verified 01/27/25 11:32) visual problem dronedarone (From Multaq) Adverse Reaction (Intermediate, Verified 01/27/25 11:32) not effective Medication List - Last Reconciled 02/10/25 by Sandeep iCd MD apixaban (Eliquis) 5 mg PO BID atorvastatin 80 mg PO DAILY ezetimibe 10 mg PO DAILY flecainide 150 mg PO Q12H metoprolol tartrate 25 mg PO BID HPI Comments Details: Sivan comes for follow-up. Overall she has been doing very well from cardiac perspective. She has no new episodes of atrial fibrillation. No lightheadedness, syncope. No exertional chest pain or shortness of breath. No orthopnea, PND, leg edema. No bleeding issues or neurologic events. [facility] Medical History Osteopenia of multiple sites Osteopenia Cardiac pacemaker in situ Paroxysmal atrial fibrillation Impacted cerumen of both ears Hypercholesterolemia Hypertension Current use of anticoagulant therapy Surgical History H/O colonoscopy Eye globe prosthesis Social History Household Members: Spouse Housing: House Do you presently have visiting nurse or other home services: No Alcohol intake: current Alcohol intake frequency: holidays/special occasions only Alcohol type: wine Comment: once a week 1/2 wine Patient Tobacco Use Status: Never used Tobacco e-Cigarette/Vaping Use: Never Used Second Hand Smoke Exposure: No service: No Current occupational status: retired Cognitive needs: No Hearing needs: No Vision needs: Yes Review of Systems Const Denies chills, Denies fatigue, Denies fever(s), Denies frequent falls, Denies weakness, Denies weight gain and Denies weight loss ENT Denies dizziness Card Denies chest pain, Denies leg edema, Denies lightheadedness, Denies palpitations, Denies dyspnea, Denies dyspnea on exertion, Denies orthopnea and Denies other (loss of consciousness) Resp Denies cough, Denies dyspnea and Denies dyspnea on exertion GI Denies hematochezia and Denies change in stool character Musc Denies abnormal gait, Denies muscle weakness, Denies numbness, Denies radiating pain into limb and Denies tingling Neuro Denies abnormal gait, Denies dizziness, Denies frequent falls, Denies numbness, Denies tingling and Denies weakness Endo Denies fatigue and Denies palpitations Physical Exam Vital Signs: Last Vital Signs Pulse 60 02/10/25 10:58 BP 120/76 02/10/25 10:58 BMI result Body Mass Index 26.7 Const General: cooperative, comfortable, no acute distress, alert, awake, anxious and well groomed Nutritional Appearance: average body habitus Orientation/consciousness: patient oriented x3 Limitations: no limitations Neck Neck: Yes trachea midline, Yes supple and Yes no JVD Resp Effort & Inspection: normal respiratory effort Auscultation: clear to auscultation bilaterally Cardio Jugular venous distension: no JVD Palpation: normal PMI Rate: regular rate Rhythm: regular rhythm Heart sounds: S1 normal heart sound present, S2 normal heart sound present, no click, no gallops, no murmurs and no rubs GI Auscultation: normal bowel sounds Skin General skin exam: no rashes or lesions noted Neuro General: patient oriented x3 and no focal motor deficits Extrem General: Yes no clubbing, cyanosis or edema Psych Appearance: grossly normal Office Procedures Cardiac Device Check Cardiac Device Check Details: Dual-chamber [place] Negro pacemaker in place. Programmed in DDDR at 60 beats per minute. Atrial pacing 96% of the time. No episodes of atrial fibrillation noted. Atrial sensing and atrial pacing thresholds adequate. Ventricular sensing and ventricular pacing thresholds adequate. Pacing lead impedance is stable. Battery life is at 2.4 years [id number]-NQ Cardiac Device Check, pacemaker dual lead Procedure code (CPT) selection complete EKG Details: EKGs shows atrially paced ventricularly sensed rhythm nonspecific T-wave changes with normal QT interval 44739-Bulgpuxqxcotcgknm, Complete Assessment & Plan Assessment & Plan (1) Paroxysmal atrial fibrillation: Code(s): I48.0 - Paroxysmal atrial fibrillation Category: Medical Plan: Paroxysmal atrial fibrillation which is currently suppressed. Patient has done extremely well with rhythm control approach. Continue to pursue rhythm control approach. No recurrent atrial fibrillation noted. Continue flecainide therapy which she is tolerating well. Continue concomitant metoprolol therapy. Continue full oral anticoagulation, currently on Eliquis 5 mg b.i.d.. Avoidance of stimulants was discussed. Stress mitigation strategies were discussed. Continue risk factor modification. (2) Cardiac pacemaker in situ: Comment: Dual-chamber [place] pacemaker placed for transient AV block Code(s): Z95.0 - Presence of cardiac pacemaker Category: Medical Plan: Cardiac pacemaker in-situ initially placed for transient AV block but now currently using it in the atrium 96% of the time. Continue monitor remotely every 3 months. Will follow up in the clinic in 6 months time. (3) Hypercholesterolemia: Code(s): E78.00 - Pure hypercholesterolemia, unspecified Category: Medical Plan: Hyperlipidemia currently well optimized on atorvastatin and ezetimibe therapy. Continue the same. Continue lifestyle modification as well as increase excellent cavity level and diet modification. She understands and agrees. (4) Elevated brain natriuretic peptide (BNP) level: Code(s): R79.89 - Other specified abnormal findings of blood chemistry Category: Medical Plan: Prior history of elevated BNP level in the setting of recurrent atrial fibrillation. She has no signs or symptoms of heart failure. Continue current aggressive rhythm control approach. Signs and symptoms of heart failure were discussed. Will follow up in the clinic in 6 months time, sooner PRN. Thank you for allowing me to partake in her care Medications: Refilled ezetimibe 10 mg PO DAILY 90 tabs 3RF Coding Level of Care Code Est Pt Level 4 (13701) Diagnoses Paroxysmal atrial fibrillation I48.0 Cardiac pacemaker in situ Z95.0 Hypercholesterolemia E78.00 Elevated brain natriuretic peptide (BNP) level R79.89 CPT Codes Cardiac Device Check - Cardiac Device 2: 37870-KT Cardiac Device Check, pacemaker dual lead ([id number]) EKG - CPT: 84130-Yfsfrjnsyzktmfuou, Complete ([id number])
--- OUTSIDE RECORDS SUMMARY | 2025-02-10 14:35 | XMS_ITS | Patient Health Record ---
Author Organization [facility] Address [address] [place] [address] Care Team Providers Care Applique Cutter Name Role Phone Ger Granda MD Primary Care Provider Ced Rendon [phone] Allergies No Known Allergies Results Component Value Reference Range Notes Pathology (Not yet reviewed by provider) Interpretation: Performing Lab:[facility], [address] [place] [phone] Notes/Report: Reason For Referral No Information Medications [...] Problem Status W/U Status Risk Notes Problem Information temporarily unavailable Colon cancer screening (Z12.11) Active confirmed Problem Information temporarily unavailable [facility] (current) use of antithrombotics/a ntiplatelets (Z79.02) Active confirmed Problem Information temporarily unavailable Preprocedural examination (Z01.818) Active confirmed Vital Signs Temperature 97.8 degrees Fahrenheit 10/09/2024 Blood pressure diastolic 01 mm Hg 10/09/2024 Height 66 in 10/09/2024 Blood pressure systolic 001 mm Hg 10/09/2024 Weight 163.6 lbs 10/09/2024 BMI 26.4 kg/m2 10/09/2024 Procedures Procedure Date Ordered Date Performed Result Body Sit e COLONOSCOPY 10/09/2024 N/A Encounters Encounter Location Date Provider Diagnosis [facility] [place] [address] [place], [place] [phone] 01/19/2025 Ced Segal [facility] [address] [place] [address] 10/09/2024 Ced Segal [facility] (current) use of antithrombotics/antipl atelets Z79.02 ; Preprocedural examination Z01.818 and Colon cancer screening Z12.11 Assessments Encounter Date Diagnosis (ICD Code) Assessment Notes Treatment Notes Treatment Clinical Notes Section Notes 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
--- OUTSIDE RECORDS SUMMARY | 2025-02-10 14:35 | XMS_ITS | Clinical Summary ---
Author Organization [facility] Address [address] [place] [address] Phone Care Team Providers Care Ship Engines Operating Engineer Name Role Phone Ger Granda MD Primary Care Provider [phone] Encounters Date Type Department Care Team Description 01/26/2025 9:56 AM EST - 01/26/2025 11:59 PM EST [facility] [address] [address] Encounter for screening mammogram for [...] 04/24/2022 Depression Screening 02/13/2024 COVID-19 Vaccine ( - season) 2024 12/13/2020, 11/24/2020, 04/17/2020, Additional history exists Hypertension/CHF/CAD Annual BMP Blood Test 01/26/2025 Influenza Vaccine Completed 11/13/2024, , 12/28/2022, Additional history exists Breast Cancer Screening Discontinued 01/27/20, 12/25/2023, 12/20/2022, Additional history exists HIB Vaccines Aged Out [...] year. [facility]amm[facility] at [address], [address] -------- FINAL REPORT -------- Dictated By: Oliver Salguero Dictated Date: 01/26/2025 10:50 ET Assigned Physician: Oliver Salguero Reviewed and Electronically Signed By: Oliver Salguero Signed Date: 01/26/2025 10:55 ET Workstation ID: [id number] Transcribed By: Self Edit Transcribed Date: 01/26/2025 10:50 ET Narrative 01/26/2025 10:55 AM EST EXAM: SCREENING MAMMOGRAPHY, BILATERAL HISTORY: SCREENING. No additional history. COMPARISON: 12/25/23, 12/20/22, 12/01/21, 11/02/20 TECHNIQUE: Synthesized CC and MLO projections of each breast. Tomosynthesis of each breast in the CC and MLO projections. ADDITIONAL IMAGING: None Computer-aided detection was employed with the [employer] AI 3-D. TISSUE DENSITY: There are scattered [...] None Computer-aided detection was employed with the [employer] AI 3-D. TISSUE DENSITY: There are scattered [...] year. [facility]amm[facility] [address], [address] -------- FINAL REPORT -------- Dictated By: Oliver Salguero Dictated Date: 01/26/2025 10:50 ET Assigned Physician: Oliver Salguero Reviewed and Electronically Signed By: Oliver Salguero Signed Date: 01/26/2025 10:55 ET Workstation ID: [id number] Transcribed By: Self Edit Transcribed Date: 01/26/2025 10:50 ET us Self Referral Sppl IMG BI PROCEDURES Final Resul t from Last 3 Months Insurance [facility] [employer] - [place] MEDICARE ADVANTAGE Care Teams Ship Engines Operating Engineer Relationship Specialty Start Date End Date Ger Granda MD [address] [place] [address] [address] [facility] [place] [address] PCP - General Internal Medicine 12/02/23
== END 2025-02-10 11:16 | disposition home or self-care (01) ==
LOC: HO.HCS 10:48
PROVIDERS: PCP Internal Medicine; Visit Provider Internal Medicine Cardiovascular Disease
DX: I48.0 Paroxysmal atrial fibrillation (principal); Z95.0 Presence of cardiac pacemaker; E78.00 Pure hypercholesterolemia, unspecified; R79.89 Other specified abnormal findings of blood chemistry
CPT/HCPCS: 93010; 93280; 99214

== ENCOUNTER → 2025-02-10 10:47 | Outpatient (BNVA) | payer BC, SELFPAY | PROVIDERS: PCP Internal Medicine; Visit Provider Internal Medicine Cardiovascular Disease | DX: I48.0 Paroxysmal atrial fibrillation (principal); E78.00 Pure hypercholesterolemia, unspecified; I10 Essential (primary) hypertension; R79.89 Other specified abnormal findings of blood chemistry; Z95.0 Presence of cardiac pacemaker; Z79.01 Long term (current) use of anticoagulants; Z79.899 Other long term (current) drug therapy | CPT/HCPCS: 93005; 93280 ==